=== PATIENT | male | born 1970 | race Caucasian/White ===

== ENCOUNTER 2020-01-19 16:25 | Outpatient (REF) | payer OTHER, SELFPAY | END 2020-01-19 16:26 | disposition home or self-care (01) | LOC: HO.LAB 16:25 | PROVIDERS: PCP Nurse Practitioner Family; Visit Provider Internal Medicine | DX: Z20.828 Contact with and (suspected) exposure to other viral communicable diseases (principal) | CPT/HCPCS: 87635 ==

== ENCOUNTER 2020-01-22 09:54 | Day surgery (SDC) | payer OTHER, SELFPAY ==
[2020-01-12 15:34] VITALS: BMI 31.5
--- NOTE | 2020-01-17 15:08 | P.CONAN_ITS ---
Documented by User: Giulia Heard 01/17/20 15:09 HPI - Anesthesia Eval Consult details Narrative: 49yo M for Colonoscopy: screening [facility] Past Medical History Medical History Elevated cholesterol Fatty liver GERD (gastroesophageal reflux disease) Hematoma Renal calculi Thyroid disease Surgical History Surgical History (Updated 01/22/20 @ 10:36 by Isi Barton) History of esophagogastroduodenoscopy (EGD) History of evacuation of hematoma Social History Social History Smoking Status: Never smoker Use of substances other than those prescribed or required for medical reasons: No Advance Directives Information Provided: No Recently lost weight without trying: No Meds Allergies Allergy/AdvReac Type Severity Reaction Status Date / Time No Known Allergies Allergy Verified 01/12/20 15:38 [No Known Allergies*] Home Medications Medication Instructions Recorded Confirmed Type ergocalciferol (vitamin D2) 1,250 mcg PO QWEEK 01/12/20 01/12/20 History [Vitamin D2] levothyroxine 100 mcg PO DAILY 01/12/20 01/12/20 History omeprazole 20 mg PO DAILY 01/12/20 01/12/20 History Exam Exam Date and Time: January 17, 2020 1508 Height,Weight and Vital Signs: Height 6 ft Weight 105.5 kg Assessment and Plan Assessment Anesthesia Assessment: Chart Reviewed Documented by User: Isi Barton 01/22/20 10:40 [facility] Past Medical History Medical History Elevated cholesterol Fatty liver GERD (gastroesophageal reflux disease) Hematoma Renal calculi Thyroid disease Family History Family history of problems with anesthesia: No Surgical History Surgical History (Updated 01/22/20 @ 10:36 by Isi Barton) History of esophagogastroduodenoscopy (EGD) History of evacuation of hematoma History of Problems with Anesthesia: No Social History Social History Smoking Status: Never smoker Use of substances other than those prescribed or required for medical reasons: No Advance Directives Information Provided: No Recently lost weight without trying: No Meds Allergies Allergy/AdvReac Type Severity Reaction Status Date / Time No Known Allergies Allergy Verified 01/12/20 15:38 [No Known Allergies*] Home Medications Medication Instructions Recorded Confirmed Type ergocalciferol (vitamin D2) 1,250 mcg PO QWEEK 01/12/20 01/12/20 History [Vitamin D2] levothyroxine 100 mcg PO DAILY 01/12/20 01/12/20 History omeprazole 20 mg PO DAILY 01/12/20 01/12/20 History Exam Height,Weight and Vital Signs: Vital Signs Temp Pulse Resp BP Pulse Ox 01/22/20 10:14 98 F 80 16 124/84 98 Airway Mallampati Class: II TM Dist: >3cm Neck ROM: Full Loose/Missing/Broken Teeth: No (Crowns intact) Heart: RRR Lungs: CTAB Assessment and Plan Assessment Anesthesia Assessment: Anesthesia Plan Discussed and Chart Reviewed Final Anesthetic Review NPO: Yes (Except prep and water with meds) ASA Class: II Final Preanesthetic Review: No Changes in Pt Med Stat, Meds/Allgs Chart Reviewed, Consent Obtained/Reviewed and Anes Risks/Benef Reviewed Patient Risk: Low Procedure Risk: Low Anesthetic Plan Anesthetic Plan: MAC: Disposition: Standard PACU
[2020-01-22 10:14] VITALS: BP 124/84; PULSE 80; RESP 16; TEMP 36.6; O2SAT 98
[2020-01-22] MEDS: Lactated Ringers 1,000 ML 100 ML IVCONT (10:28)
--- NOTE | 2020-01-22 11:04 | MHC.SHP ---
Pre-Procedural Eval Section B Chief Complaint: screening Details of Present Illness: Colon cancer screening Relevant Family History (Specify if Yes): No Relevant Social History: Tobacco Use (none) Present Medications: see Short Stay Collaborative assessment Medical History: Significant History ( Psoriasis. vitamin D deficiency. Mixed hyperlipidemia. Acquired hypothyroidism. GERD without esophagitis. Other obesity due to excess calories. BMI 31.0-31.9 in adult. RALPH. Elevated bilirubin. Substernal chest pain. Left flank pa) History of Previous Operations: Relevant previous surgery/procedure and date(s) (hematoma removal left orbit [id number] ) Allergies: Allergies Allergy/AdvReac Type Severity Reaction Status Date / Time No Known Allergies Allergy Verified 01/12/20 15:38 [No Known Allergies*] Review of Systems Sugical H&P ROS: Negative: Constitution, Cardiovascular, Respiratory and Gastrointestinal Exam Surgical H&P Exam: Normal: Heart, Normal: Lungs, Normal: Extremities and Normal: Abdomen Plan Diagnosis/Plan: Unchanged Patient has been examined and remains a candidate for the planned procedure
--- NOTE | 2020-01-22 11:15 | PM.OP ---
Brief Operative Note Date of procedure: 01/23/20 Pre-op diagnosis: colon cancer screening Post-op diagnosis: other ( colon polyp, diverticulosis, hemorrhoids) Procedure: COLONOSCOPY TILL CECUM WITH BIOPSIES Consent: Indications for the procedure and potential complications of bleeding, perforation, reaction to medications and missed diagnosis were discussed with the patient and informed consent was obtained. Instrument: Olympus PCF H 190 L variable stiffness pediatric colonoscope Monitoring: Vital signs and clinical assessment, intermittent blood pressure monitoring, continuous EKG monitoring, Pulse oximetry and Carbon Dioxide monitoring were done throughout the procedure. Colon withdrawl time was 11 minutes. Procedure: The patient was placed in the left lateral decubitis position and pre-procedure medications were administered. After a digital rectal examination of the ano-rectum, the video colonoscope was inserted into the rectum and advanced through the colon to the cecum. The colonoscope was slowly withdrawn in a retrograde panoramic fashion and the colon mucosa was carefully examined including a retroflexed view of the rectum. Findings and interventions are described below. Procedure Difficulty: Without difficulty Findings: Terminal Ileum: Not evaluated Cecum: Normal Ascending Colon: Normal Transverse Colon: A 6-7 mm sessile polyp at hepatic flexure, removed with a cold biopsy. Descending Colon: Normal Sigmoid Colon: Moderate diverticulosis Rectum: Normal Ano-rectum: Moderate noninflamed internal hemorrhoids Colon preparation: Excellent Impression and Post Procedure Diagnosis: Colonoscopy Findings: One small polyp removed Moderate diverticulosis seen in the sigmoid colon Moderate hemorrhoids on retroflexed exam. Plan: Await pathology results Patient has an appointment on 03/25/20 in the GI [facility] with Tawana Ray M.D.-. Repeat Colonoscopy interval based on path results - in 5 years if polyps are adenomatous and 10 years if polyps are hyperplastic. Above findings were reviewed with the patient and colon polyps and diverticulosis handouts were given in the discharge area Surgeon: Tawana Ray MD Anesthesia: MAC (Mani Nam CRNA) Porcelain Finish Sprayer: Sol Malagon Estimated blood loss (mL): 0 Pathology: other (A. Polyp hepatic flexure x 1) Condition: stable Disposition: PACU
[2020-01-22 11:41] VITALS: BP 93/64; PULSE 96; RESP 18; TEMP 36.8; O2SAT 95
[2020-01-22 11:57] VITALS: BP 103/67; PULSE 64; RESP 16; O2SAT 98
[2020-01-22 12:13] VITALS: BP 120/85; PULSE 65; RESP 13; TEMP 36.8; O2SAT 99
--- NOTE | 2020-01-22 13:00 | HO.POSTANES ---
Post Anesthesia Evaluation Post Anesthesia Evaluation Vital Signs: Vital Signs Temp Pulse Resp BP Pulse Ox 01/22/20 12:13 98.3 F 65 13 120/85 99 01/22/20 11:57 64 16 103/67 98 01/22/20 11:41 98.3 F 96 18 93/64 95 01/22/20 10:14 98 F 80 16 124/84 98 Anesthesia: Monitored Mental Status: Awake Pain Control: Satisfactory Nausea/Vomiting: None Hydration: Adequate Anesthesia-Related Issues: No Anes. Related Issues
== END 2020-01-22 12:59 | disposition home or self-care (01) ==
PROVIDERS: PCP Nurse Practitioner Family; Visit Provider Internal Medicine Gastroenterology
PROC: 0DJD8ZZ Inspection of Lower Intestinal Tract, Via Natural or Artificial Opening Endoscopic (ICD-10-PCS; CPT 45378; principal; 2020-01-22 12:50)
DX: Z12.11 Encounter for screening for malignant neoplasm of colon (principal); D12.3 Benign neoplasm of transverse colon; K57.30 Diverticulosis of large intestine without perforation or abscess without bleeding; K64.8 Other hemorrhoids; K21.9 Gastro-esophageal reflux disease without esophagitis; E78.5 Hyperlipidemia, unspecified; E55.9 Vitamin D deficiency, unspecified; L40.9 Psoriasis, unspecified; E66.9 Obesity, unspecified; Z68.31 Body mass index [BMI] 31.0-31.9, adult; Z79.899 Other long term (current) drug therapy
CPT/HCPCS: 45380; 88305

== ENCOUNTER → 2020-03-25 14:53 | Outpatient (BNVA) | payer OTHER, SELFPAY | PROVIDERS: PCP Nurse Practitioner Family; Visit Provider Internal Medicine Gastroenterology | DX: Z76.89 Persons encountering health services in other specified circumstances (principal) ==

== ENCOUNTER → 2020-09-19 10:51 | Outpatient (BNVA) | payer OTHER, SELFPAY | PROVIDERS: PCP Nurse Practitioner Family; Referring Provider Nurse Practitioner Family; Visit Provider Internal Medicine Gastroenterology ==

== ENCOUNTER 2021-03-22 10:28 | Outpatient (REF) | payer OTHER, SELFPAY ==
[2021-03-22 11:17] LABS: Appearance Urine CLEAR; Color Urine YELLOW; Glucose Urine UA NEG (NEG); Leukocyte Esterase Urine NEG (NEG); Nitrite Urine NEG (NEG); Specific Gravity - Urine 1.025 (1.005-1.025); Urine Blood NEG (NEG); Urine Ketones NEG (NEG); Urine Protein NEG (NEG-TRACE)
[2021-03-22 11:39] LABS: Alanine Aminotransferase 45 U/L (0-40); Albumin Level 4.5 g/dL (3.5-5.0); Alkaline Phosphatase 62 U/L (39-117); Anion Gap 13 (12-20); Aspartate Amino Transferase 28 U/L (5-37); Bilirubin Total 1.5 mg/dL (0.0-1.0); Blood Urea Nitrogen 19 mg/dL (9-16); Calcium 9.6 mg/dL (8.4-10.2); Carbon Dioxide 25 mmol/L (22-29); Chloride 107 mmol/L (96-108); Cholesterol 237 mg/dL; Estimated Glomerular Filt Rate 51; Glucose Fasting 92 mg/dL (60-99); HDL Cholesterol 56 mg/dL; LDL Cholesterol Calculated 152 mg/dl; Potassium 4.2 mmol/L (3.3-5.1); Sodium 141 mmol/L (135-145); Total Protein 7.4 g/dL (6.5-8.0); Triglycerides 149 mg/dL
[2021-03-22 11:47] LABS: Prostate Specific Antigen Scr 0.44 ng/mL (<0.05-4.0)
== END 2021-03-22 10:29 | disposition home or self-care (01) ==
LOC: HO.HMGCLDS 10:28
PROVIDERS: Visit Provider Nurse Practitioner Family
DX: Z00.00 Encounter for general adult medical examination without abnormal findings (principal); R07.89 Other chest pain; Z12.5 Encounter for screening for malignant neoplasm of prostate
CPT/HCPCS: 36415; 80053; 80061; 81003; 84153; 84443

== ENCOUNTER → 2021-03-27 10:55 | Outpatient (BNVA) | payer OTHER, SELFPAY | PROVIDERS: PCP Nurse Practitioner Family; Referring Provider Nurse Practitioner Family; Visit Provider Internal Medicine Gastroenterology | DX: K21.9 Gastro-esophageal reflux disease without esophagitis (principal); K76.0 Fatty (change of) liver, not elsewhere classified ==

== ENCOUNTER → 2021-04-21 08:54 | Outpatient (REF) | payer OTHER, SELFPAY ==
--- NOTE | 2021-04-21 09:00 | CA_ITS ---
Acquisition Time: 2021-04-21 09:10:04 Total Exercise Time: 00:07:30 Test Indications: CHEST PAIN Medications: LEVOTHROXINE Protocol: SIVAKUMAR Max HR: 157 BPM 91% of Pred: 171 BPM Max BP: 148/088 mmHG Max Work Load: 9.2 METS Exercise stress test with exercise 7 min 30 sec of Sivakumar protocol, with mild sob, no chest discomfort, without arrythmia, with normotensive response to exercise, without EKG changes meeting criteria for ischemia. Test reviewed with Dr Copeland. Referred By: Milton Bass Overread By: JESSICA MCKENZIE
== END ==
LOC: HO.CARD 08:54
PROVIDERS: PCP Nurse Practitioner Family; Visit Provider Physician Assistant
DX: R07.89 Other chest pain (principal); R06.02 Shortness of breath; Z82.49 Family history of ischemic heart disease and other diseases of the circulatory system
CPT/HCPCS: 93017

== ENCOUNTER 2021-05-07 08:27 | Outpatient (REF) | payer OTHER, SELFPAY ==
--- NOTE | ~2021-05-07 | US_ITS ---
EXAMINATION: US ABDOMEN COMPLETE CLINICAL INFORMATION: Unspecified abdominal pain. Follow up large gallstone. COMPARISON: Ultrasound abdomen complete 11/21/2018. CT abdomen and pelvis 04/05/2010. TECHNIQUE: Real-time imaging of the abdominal viscera. FINDINGS: PANCREAS: Normal. ABDOMINAL AORTA: The proximal, mid, and distal segments are normal in caliber. INFERIOR VENA CAVA: Visualized portions are normal. LIVER: The liver is normal in size. The liver contour is normal. There is increased liver echogenicity. No focal hepatic lesion. There is no intrahepatic biliary duct dilatation seen. GALLBLADDER: The gallbladder is physiologically distended. Multiple mobile gallstones are present. No evidence of gallbladder wall thickening or pericholecystic fluid. The wall thickness is 0.26 cm. COMMON BILE DUCT: Normal in caliber measuring 0.6 cm in diameter. RIGHT KIDNEY: Normal. No hydronephrosis. No renal calculi or focal parenchymal lesions. The kidney measures 10.8 cm in maximum dimension. LEFT KIDNEY: Normal. No hydronephrosis. No renal calculi or focal parenchymal lesions. The kidney measures 9.7 cm in maximum dimension. SPLEEN: Normal. The spleen measures 11.6 cm in maximum dimension. FREE FLUID: None. US/US abdomen complete IMPRESSION: Hepatic steatosis without focal lesion. Cholelithiasis. The above findings of hepatic steatosis and gallstones are unchanged to previous ultrasound exam 11/21/2018.
== END 2021-05-07 08:28 | disposition home or self-care (01) ==
LOC: HO.HMGCX 08:27
PROVIDERS: Visit Provider Physician Assistant
DX: R10.9 Unspecified abdominal pain (principal)
CPT/HCPCS: 76700

== ENCOUNTER → 2021-08-28 08:44 | Outpatient (BNVA) | payer OTHER, SELFPAY | PROVIDERS: PCP Nurse Practitioner Family; Referring Provider Nurse Practitioner Family; Visit Provider Internal Medicine Gastroenterology | DX: R10.9 Unspecified abdominal pain (principal) ==

== ENCOUNTER 2021-08-28 10:14 | Outpatient (REF) | payer OTHER, SELFPAY ==
[2021-08-28 11:12] LABS: MANUAL DIFF FLAG NO
[2021-08-28 11:27] LABS: Basophils Percent Auto 0.7 % (0-2); Eosinophils Absolute Auto 0.1 X10*3/uL (0.0-0.4); Eosinophils Percent Auto 1.1 % (0-4); Hematocrit 46.7 % (42.0-52.0); Hemoglobin 15.7 g/dl (14.0-18.0); Imm Gran Abs Auto 0.02 X10*3/uL (0.00-0.03); Imm Gran Pct Auto 0.4 % (0.0-0.4); Lymphocytes Absolute Auto 1.8 X10*3/uL (1.2-4.9); Lymphocytes Percent Auto 31.5 % (20-40); Mean Corpuscular HGB Conc 33.6 g/dl (31.0-36.0); Mean Corpuscular Hemoglobin 30.7 pg (27.0-33.0); Mean Corpuscular Volume 91.2 fL (80.0-98.0); Mean Platelet Volume 10.2 fL (9.4-12.4); Monocytes Absolute Auto 0.6 X10*3/uL (0.1-1.2); Monocytes Percent Auto 10.2 % (2-11); Neutrophils Absolute Auto 3.1 x10*3/uL (2.0-8.3); Neutrophils Percent Auto 56.1 % (45-73); Platelet Count 253 X10*3/uL (160-400); Red Blood Count 5.12 X10*6/uL (4.60-5.80); Red Cell Distribution Width 12.6 % (11.0-16.0); White Blood Count 5.6 X10*3/uL (4.8-10.8)
[2021-08-28 11:50] LABS: Alanine Aminotransferase 40 U/L (0-40); Albumin Level 4.4 g/dL (3.5-5.0); Alkaline Phosphatase 67 U/L (39-117); Anion Gap 11 (12-20); Aspartate Amino Transferase 22 U/L (5-37); Bilirubin Total 1.3 mg/dL (0.0-1.0); Blood Urea Nitrogen 18 mg/dL (9-16); Calcium 9.6 mg/dL (8.4-10.2); Carbon Dioxide 28 mmol/L (22-29); Chloride 107 mmol/L (96-108); Estimated Glomerular Filt Rate 51; Glucose Random 86 mg/dL (60-115); Sodium 141 mmol/L (135-145); Total Protein 7.1 g/dL (6.5-8.0)
[2021-08-28 12:15] LABS: Vitamin D 25-OH Total 83.7 ng/mL (>30)
[2021-08-28 12:54] LABS: Folate 8.8 ng/mL (> or = 4.0); Vitamin B12 329 pg/mL (200-900)
== END 2021-08-28 10:15 | disposition home or self-care (01) ==
LOC: HO.HMGCLDS 10:14
PROVIDERS: PCP Nurse Practitioner Family; Visit Provider Internal Medicine Gastroenterology
DX: K21.9 Gastro-esophageal reflux disease without esophagitis (principal)
CPT/HCPCS: 36415; 80053; 82306; 82607; 82746; 85025

== ENCOUNTER 2021-09-12 08:52 | Outpatient (REF) | payer OTHER, SELFPAY ==
--- NOTE | ~2021-09-12 | US_ITS ---
EXAMINATION: US ABDOMEN LIMITED CLINICAL INFORMATION: Calculus of gallbladder without cholecystitis without obstruction. COMPARISON: Ultrasound abdomen complete 05/07/2021 and 11/21/2018. TECHNIQUE: Real-time imaging of the right upper quadrant abdominal viscera. FINDINGS: PANCREAS: Normal. LIVER: The liver is normal in size. The liver contour is normal. Liver echotexture is increased. No focal hepatic lesion. There is no intrahepatic biliary duct dilatation seen. GALLBLADDER: The gallbladder is physiologically distended. Multiple mobile gallstones are present. No evidence of gallbladder wall thickening or pericholecystic fluid. COMMON BILE DUCT: Normal in caliber measuring 0.6 cm in diameter. RIGHT KIDNEY: Normal. No hydronephrosis. No renal calculi or focal parenchymal lesions. The kidney measures 10.1 cm in maximum dimension. FREE FLUID: None. US/US abdomen limited IMPRESSION: Gallstones. Echogenic liver probably representing fatty infiltration
== END 2021-09-12 08:53 | disposition home or self-care (01) ==
LOC: HO.HMGCX 08:52
PROVIDERS: PCP Nurse Practitioner Family; Visit Provider Internal Medicine Gastroenterology
DX: K80.20 Calculus of gallbladder without cholecystitis without obstruction (principal)
CPT/HCPCS: 76705

== ENCOUNTER 2022-09-07 10:03 | Outpatient (REF) | payer OTHER, SELFPAY ==
[2022-09-07 11:15] LABS: MANUAL DIFF FLAG NO
[2022-09-07 11:33] LABS: Basophils Percent Auto 0.5 % (0-2); Eosinophils Absolute Auto 0.1 X10*3/uL (0.0-0.4); Eosinophils Percent Auto 1.2 % (0-4); Hematocrit 48.5 % (42.0-52.0); Hemoglobin 16.2 g/dl (14.0-18.0); Imm Gran Abs Auto 0.03 X10*3/uL (0.00-0.03); Imm Gran Pct Auto 0.5 % (0.0-0.4); Lymphocytes Absolute Auto 1.9 X10*3/uL (1.2-4.9); Lymphocytes Percent Auto 28.3 % (20-40); Mean Corpuscular HGB Conc 33.4 g/dl (31.0-36.0); Mean Corpuscular Hemoglobin 30.2 pg (27.0-33.0); Mean Corpuscular Volume 90.3 fL (80.0-98.0); Mean Platelet Volume 9.9 fL (9.4-12.4); Monocytes Absolute Auto 0.5 X10*3/uL (0.1-1.2); Neutrophils Percent Auto 61.5 % (45-73); Platelet Count 270 X10*3/uL (160-400); Red Blood Count 5.37 X10*6/uL (4.60-5.80); Red Cell Distribution Width 12.9 % (11.0-16.0); White Blood Count 6.5 X10*3/uL (4.8-10.8)
[2022-09-07 11:38] LABS: Appearance Urine Clear; Color Urine Yellow; Glucose Urine UA Negative (Negative); Leukocyte Esterase Urine Negative (Negative); Nitrite Urine Negative (Negative); Specific Gravity - Urine 1.025 (1.005-1.025); Urine Blood Negative (Negative); Urine Ketones Negative (Negative); Urine Protein Negative (Neg-Trace)
[2022-09-07 12:06] LABS: Alanine Aminotransferase 48 U/L (0-40); Albumin Level 4.6 g/dL (3.5-5.0); Alkaline Phosphatase 79 U/L (39-117); Anion Gap 14 (12-20); Aspartate Amino Transferase 27 U/L (5-37); Bilirubin Total 1.7 mg/dL (0.0-1.0); Blood Urea Nitrogen 17 mg/dL (9-16); Calcium 9.8 mg/dL (8.4-10.2); Carbon Dioxide 26 mmol/L (22-29); Chloride 108 mmol/L (96-108); Cholesterol 233 mg/dL; Estimated Glomerular Filt Rate 52; Glucose Fasting 96 mg/dL (60-99); HDL Cholesterol 55 mg/dL; LDL Cholesterol Calculated 149 mg/dl; Potassium 4.8 mmol/L (3.3-5.1); Sodium 143 mmol/L (135-145); Total Protein 7.6 g/dL (6.5-8.0); Triglycerides 148 mg/dL
[2022-09-07 12:07] LABS: Vitamin D 25-OH Total 76.5 ng/mL (>30)
[2022-09-07 12:11] LABS: Prostate Specific Antigen Scr 0.47 ng/mL (<0.05-4.0); TSH reflex Free T4 1.07 uIU/mL (0.32-4.0)
== END 2022-09-07 10:04 | disposition home or self-care (01) ==
LOC: HO.HMGCLDS 10:03
PROVIDERS: Internal Medicine Gastroenterology; PCP Nurse Practitioner Family; Visit Provider Nurse Practitioner Family
DX: Z00.00 Encounter for general adult medical examination without abnormal findings (principal); Z12.5 Encounter for screening for malignant neoplasm of prostate; E55.9 Vitamin D deficiency, unspecified; E78.5 Hyperlipidemia, unspecified; K76.0 Fatty (change of) liver, not elsewhere classified
CPT/HCPCS: 36415; 80053; 80061; 81003; 82306; 84153; 84443; 85025

== ENCOUNTER 2022-09-22 09:53 | Outpatient (REF) | payer OTHER, SELFPAY ==
--- NOTE | ~2022-09-22 | US_ITS ---
EXAMINATION: US ABDOMEN LIMITED CLINICAL INFORMATION: Calculus of bile duct without cholangitis or cholecystitis without obstruction. COMPARISON: Ultrasound abdomen limited dated 09/12/2021. Ultrasound abdomen complete dated 05/07/2021. CT abdomen and pelvis without contrast dated 04/05/2010. TECHNIQUE: Real-time imaging of the right upper quadrant abdominal viscera. FINDINGS: PANCREAS: The visualized portions of the pancreas are unremarkable but a large portion of the gland is obscured by bowel gas. LIVER: The liver is normal in size. The liver contour is normal. There is diffuse increased liver parenchymal echogenicity, consistent with hepatic steatosis. There is focal fatty sparing around the gallbladder. There is no intrahepatic biliary duct dilatation seen. Some hepatic cysts are present with a 1 cm cyst in the left lobe of the liver and a 1.5 cm cyst in the right lobe. No solid hepatic masses. GALLBLADDER: The gallbladder is physiologically distended. There is a single large 3.5 x 2.4 x 2.9 cm nonmobile gallstone present. No evidence of gallbladder wall thickening or pericholecystic fluid. Garrett's sign is negative. COMMON BILE DUCT: Normal in caliber measuring 0.65 cm in diameter. RIGHT KIDNEY: Normal. No hydronephrosis. No renal calculi or focal parenchymal lesions. The kidney measures 10.1 cm in maximum dimension. FREE FLUID: None. US/US abdomen limited IMPRESSION: 1. Hepatic steatosis with focal fatty sparing around the gallbladder. 2. Cholelithiasis without evidence of cholecystitis.
--- NOTE | ~2022-09-22 | US_ITS ---
EXAMINATION: US THYROID CLINICAL INFORMATION: Nontoxic single thyroid nodule. COMPARISON: None available. TECHNIQUE: Linear transducer grayscale and color Doppler examination with attention to the region of the thyroid. FINDINGS: SIZE: Measurements of the thyroid lobes and nodules are given in sagittal, anteroposterior and transverse dimensions respectively. Right Thyroid Lobe: 4.6 x 1.0 x 1.5 cm, volume 3.6 mL. Parenchyma: The gland echotexture is heterogeneous. Thyroid vascularity is normal. Left Thyroid Lobe: 4.1 x 1.0 x 1.1 cm, volume 2.4 mL. Parenchyma: The gland echotexture is heterogeneous. Thyroid vascularity is normal. Isthmus: 0.3 cm in maximum AP dimension. No focal thyroid nodule is seen. NODES: No lymphadenopathy is seen in the tissue surrounding the thyroid gland. US/US thyroid IMPRESSION: No thyroid nodule seen. Small diffusely heterogeneous gland. ACR TI-RADS RECOMMENDATION REFERENCE: Ultrasound-guided fine-needle aspiration, followup ultrasound, no further follow up. * TR1 (0 point) and TR2 (2 points): No FNA or follow up. * TR3 (3 points): FNA if more than or equal to 2.5 cm in maximum dimension, followup ultrasound in 1, 3 and 5 years if 1.5 to 2.4 cm in maximum dimension. * TR4 (4-6 points): FNA if more than or equal to 1.5 cm in maximum dimension, followup ultrasound in 1, 2, 3 and 5 years if 1 to 1.4 cm in maximum dimension. * TR5 (more than or equal to 7 points): FNA if more than or equal to 1 cm in maximum dimension, followup ultrasound every year for 5 years if 0.5 to 0.9 cm in maximum dimension. * TR3, TR4 or TR5 nodules that are below the size threshold for followup receive no follow up.
== END 2022-09-22 09:54 | disposition home or self-care (01) ==
LOC: HO.HMGCX 09:53
PROVIDERS: PCP Nurse Practitioner Family; Visit Provider Nurse Practitioner Family
DX: E04.1 Nontoxic single thyroid nodule (principal); K80.50 Calculus of bile duct without cholangitis or cholecystitis without obstruction
CPT/HCPCS: 76536; 76705

== ENCOUNTER → 2022-10-09 07:23 | Outpatient (BNVA) | payer OTHER, SELFPAY | PROVIDERS: PCP Nurse Practitioner Family; Visit Provider Internal Medicine Gastroenterology ==

== ENCOUNTER 2022-11-10 15:27 | Outpatient (AMB) | payer OTHER, SELFPAY ==
--- NOTE | 2022-11-10 15:28 | A.OFFVIS_ITS ---
Intake Vital Signs 11/10/22 15:42 Height 6 ft Weight 247 lb BMI 33.5 BP 112/82 Blood Pressure Location Lt brachial Position Sitting Pulse 64 Intake Visit Reasons: Large Gallstone on US - 2019 [facility] Note scanned Intake Note: Patient is seen in office for evaluation and treatment of gallstones. Patient c/o: onset for years, been monitoring for years, RUQ pain around last week of August, one episode of nausea, does not radiate to the back, denies vomit, diarrhea, constipation, currently has no symptoms Armature Bander Required: No Accompanied by: Self / Same As Patient Allergies No Known Allergies [No Known Allergies*] Allergy (Verified 11/10/22 15:44) Medication List - Last Reconciled 11/12/22 by Srikanth Matos MD cholecalciferol (vitamin D3) 125 mcg PO DAILY 90 days levothyroxine 100 mcg PO DAILY pantoprazole 40 mg PO BID 90 days rosuvastatin (Crestor) 5 mg PO DAILY HPI HPI Comments History of Present Illness Details 51 year old male patient presenting with a known large gallstone of the gallbladder which was previously evaluated several years ago and the decision made to hold off on surgery. Since his last visit, he reports several episodes of right upper quadrant abdominal pain which lasts 15-30 minutes and seems to be associated with po intake. He denies nausea, vomiting, fever or chills. He is now considering laparoscopic cholecystectomy. [facility] Medical History Diverticulosis Elevated cholesterol Fatty liver GERD (gastroesophageal reflux disease) Hematoma History of PFTs Renal calculi Thyroid disease Surgical History History of colonoscopy History of esophagogastroduodenoscopy (EGD) History of evacuation of hematoma Family History Father CAD (coronary artery disease) Mother Hx of colon cancer, stage IV Social History Housing: House Alcohol intake: current Alcohol intake frequency: holidays/special occasions only Patient Tobacco Use Status: Never used Tobacco e-Cigarette/Vaping Use: Never Used Second Hand Smoke Exposure: No service: No Current occupational status: employed 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 Current occupational exposures/hazards: Yes Cognitive needs: No Hearing needs: No Vision needs: No Review of Systems Const All systems reviewed & are unremarkable except as noted in HPI and below GI Reports abdominal pain Physical Exam Vital Signs: Last Vital Signs Pulse 64 11/10/22 15:42 BP 112/82 11/10/22 15:42 BMI result Body Mass Index 33.5 Const General: cooperative and no acute distress Nutritional Appearance: well nourished Orientation/consciousness: patient oriented x3 Limitations: no limitations HEENT Head: Yes normocephalic and Yes atraumatic Ears: hearing grossly normal bilaterally Resp Effort & Inspection: normal respiratory effort, no audible wheezes, no cough and no respiratory distress Cardio Jugular venous distension: no JVD GI Inspection: Yes normal to inspection Palpation (GI): Soft to palpation, nontender, no guarding, not rigid and no masses Skin Other: Warm, dry, no rash Neuro General: patient oriented x3 Extrem General: Yes no clubbing, cyanosis or edema Assessment & Plan Assessment & Plan (1) Recurrent biliary colic: Code(s): K80.50 - Calculus of bile duct without cholangitis or cholecystitis without obstruction Plan: 51 year old male patient with increased abdominal pain in the right upper quadrant and a known history of gallstones. Symptoms are consistent with biliary colic. We discussed laparoscopic cholecystectomy or possible open cholecystectomy and after a discussion of the procedure, alternatives and risks, consents to the surgery. Coding Level of Care Code New Pt Level 4 (46617) Diagnoses Recurrent biliary colic K80.50
[2022-11-10 15:42] VITALS: BP 112/82; PULSE 64; BMI 33.5
== END 2022-11-10 16:03 | disposition home or self-care (01) ==
PROVIDERS: PCP Nurse Practitioner Family; Referring Provider Internal Medicine Gastroenterology; Visit Provider Surgery
DX: K80.50 Calculus of bile duct without cholangitis or cholecystitis without obstruction (principal)
CPT/HCPCS: 99204

== ENCOUNTER → 2022-11-10 15:27 | Outpatient (BNVA) | payer OTHER, SELFPAY | PROVIDERS: PCP Nurse Practitioner Family; Referring Provider Internal Medicine Gastroenterology; Visit Provider Surgery ==

== ENCOUNTER 2023-01-04 06:07 | Day surgery (SDC) | payer OTHER, SELFPAY ==
--- NOTE | 2023-01-01 14:48 | P.CONAN_ITS ---
Documented by User: Giulia Heard NP 01/01/23 14:50 HPI - Anesthesia Eval Consult details Narrative: 52yo M for Cholecystectomy Laparoscopic, possible open PMFSH Active Problems Active Problems: All Active Problems (Updated 11/12/22 @ 17:27 by Srikanth Matos MD) Recurrent biliary colic (Acute) Gall bladder pain (Acute) Thyroid nodule (Acute) Family history of heart attack (Acute) Acute pharyngitis (Acute) Upper respiratory tract infection (Acute) Abdominal pain (Acute) Elevated serum creatinine (Acute) Atypical chest pain (Acute) Screening for prostate cancer (Acute) Physical exam (Acute) NAFL (nonalcoholic fatty liver) (Acute) Asymptomatic gallstones (Acute) History of colon polyps (Acute) Obesity (BMI 30.0-34.9) (Acute) GERD without esophagitis (Acute) Hypothyroidism (Acute) Hyperlipidemia (Acute) Vitamin D deficiency (Acute) Psoriasis (Acute) Diverticulosis (Acute) Past Medical History Medical History Diverticulosis Elevated cholesterol Fatty liver GERD (gastroesophageal reflux disease) Hematoma History of PFTs Renal calculi Thyroid disease Family History Family History Father CAD (coronary artery disease) Mother Hx of colon cancer, stage IV Family history of problems with anesthesia: No Surgical History Surgical History History of colonoscopy History of esophagogastroduodenoscopy (EGD) History of evacuation of hematoma History of Problems with Anesthesia: No Social History Social History Housing: House Alcohol intake: current Alcohol intake frequency: holidays/special occasions only Patient Tobacco Use Status: Never used Tobacco e-Cigarette/Vaping Use: Never Used Second Hand Smoke Exposure: No Have you been hit, kicked, punched, or otherwise hurt by someone within the past year? 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 Current occupational exposures/hazards: Yes Cognitive needs: No Hearing needs: No Vision needs: No Meds Allergies Allergy/AdvReac Type Severity Reaction Status Date / Time No Known Allergies Allergy Verified 11/10/22 15:44 [No Known Allergies*] Exam Exam Date and Time: January 01, 2023 1448 Pertinent Lab Results Pertinent Lab Results: Laboratory Tests 09/07/22 10:10 WBC 6.5 Hgb 16.2 Hct 48.5 Plt Count 270 Sodium 143 Potassium 4.8 Chloride 108 Carbon Dioxide 26 BUN 17 H Creatinine 1.45 H Narrative Narrative: Stress 2021 Protocol: SAQIB Max HR: 157 BPM 91% of Pred: 171 BPM Max BP: 148/088 mmHG Max Work Load: 9.2 METS Exercise stress test with exercise 7 min 30 sec of Saqib protocol, with mild sob, no chest discomfort, without arrythmia, with normotensive response to exercise, without EKG changes meeting criteria for ischemia. Test reviewed with Dr Copeland. Assessment and Plan Assessment Anesthesia Assessment: Chart Reviewed Final Anesthetic Review Family History of Problems with Anesthesia: No History of Problems with Anesthesia: No Documented by User: Suki Eid MD 01/04/23 08:02 [facility] Past Medical History Medical History Diverticulosis Elevated cholesterol Fatty liver GERD (gastroesophageal reflux disease) Hematoma History of PFTs Renal calculi Thyroid disease Family History Family History Father CAD (coronary artery disease) Mother Hx of colon cancer, stage IV Surgical History Surgical History History of colonoscopy History of esophagogastroduodenoscopy (EGD) History of evacuation of hematoma Social History Social History Housing: House Alcohol intake: current Alcohol intake frequency: holidays/special occasions only Patient Tobacco Use Status: Never used Tobacco e-Cigarette/Vaping Use: Never Used Second Hand Smoke Exposure: No Have you been hit, kicked, punched, or otherwise hurt by someone within the past year? 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 Current occupational exposures/hazards: Yes Cognitive needs: No Hearing needs: No Vision needs: No Meds Allergies Allergy/AdvReac Type Severity Reaction Status Date / Time No Known Allergies Allergy Verified 11/10/22 15:44 [No Known Allergies*] Exam Airway Mallampati Class: III (receding chin) TM Dist: <=3cm Neck ROM: Full Loose/Missing/Broken Teeth: No Heart: RRR Lungs: CTA Assessment and Plan Assessment Anesthesia Assessment: Anesthesia Plan Discussed Final Anesthetic Review NPO: Yes ASA Class: II Final Preanesthetic Review: Meds/Allgs Chart Reviewed, Consent Obtained/Reviewed and Anes Risks/Benef Reviewed Patient Risk: Low Procedure Risk: Intermediate Anesthetic Plan Anesthetic Plan: GA Disposition: Standard PACU
[2023-01-04] VITALS (7 sets, daily range): BP systolic 128–142; BP diastolic 83–97; PULSE 63–74; RESP 17–18; TEMP 36.1–36.5; O2SAT 93–99; BMI 33.9
[2023-01-04] MEDS: Lactated Ringers 1,000 ML 100 ML IVCONT (07:11)
--- NOTE | 2023-01-04 07:19 | MHC.SHP ---
Pre-Procedural Eval Section A Date of Service: 01/04/23 The patient is an INPATIENT: No Changes since office visit: Yes Patient answered all questions; No Cold of Flu in the past 2 weeks, No New Medical Problems and No Changes in Medication The History & Physical has been completed within 30 days and I have reviewed it.: No Section B Chief Complaint: Calculus of bile duct without cholangitis or regis Details of Present Illness: No new complaints since previous evaluation Relevant Family History (Specify if Yes): No Relevant Social History: None Present Medications: see Short Stay Collaborative assessment Medical History: No relevant PMH History of Previous Operations: No relevant previous surgery Allergies: Allergies Allergy/AdvReac Type Severity Reaction Status Date / Time No Known Allergies Allergy Verified 11/10/22 15:44 [No Known Allergies*] Review of Systems Sugical H&P ROS: Negative: Constitution, Cardiovascular, Respiratory, Neurological, Psychiatric, Hem-Onc, Allergic/Immunologic, Gastrointestinal, Genitourinary, Musculoskeletal, Integumentary, Endocrine and Eyes/Ears/Nose/Throat Exam Surgical H&P Exam: Normal: HEENT, Normal: Heart, Normal: Lungs, Normal: Extremities, Normal: Abdomen, Normal: Skin and Normal: Neurological Plan Diagnosis/Plan: Unchanged I have reviewed the history and physical and performed a pertinent physical examination on my patient. No changes have occurred unless specified. Time Spent With Patient Time: Total time managing care of this patient today ____ minutes.
--- NOTE | 2023-01-04 08:51 | W.PM.OPN ---
Operative Note Operative Note Date of Service: 01/04/23 Narrative: Preoperative diagnosis: biliary colic, cholelithiasis Postoperative diagnosis: Same Procedure: Laparoscopic cholecystectomy Surgeon: Srikanth Matos MD Pvc Monitor: ELIEZER Ramirez Anesthesia: General endotracheal Indications for procedure: 52-year-old male patient presenting with recurrent episodes of abdominal pain in the right upper quadrant found to have a large gallstone measuring approximately 3 cm diameter within the gallbladder. He presents today for laparoscopic cholecystectomy. Operative findings: Normal appearing gallbladder with large gallstone Specimen: gallbladder Estimated blood loss: 5 mL Complications: none Procedure details: Patient was brought to the OR and placed in a supine position. After administering general anesthesia the patient's abdomen was prepped with ChloraPrep and draped in a sterile fashion. Local anesthesia consisting of 0.5% Sensorcaine without epinephrine was infiltrated in a periumbilical region. A 5 mm incision was made above the umbilicus in a transverse fashion. The Veress needle was then inserted while elevating abdominal cavity with towel clips. After positive drop test the abdomen was insufflated to a pressure of 15 mm of mercury. The Veress needle was then removed and a 5 mm trocar inserted. The camera was inserted in the abdomen explored. A 12 mm trocar was then placed in the epigastrium. Two 5 mm trocars placed in the right upper quadrant by the clothing sales assistant. The patient was placed in reverse Trendelenburg positioning and rotated to the left. The gallbladder was grasped with the fundus and retracted cephalad by the clothing sales assistant. The infundibulum was then grasped and retracted away from the liver bed, also by the clothing sales assistant. The Dolphin dissected was then used by the surgeon to dissect the peritoneum off the infundibulum to reveal the junction with the cystic duct. Cystic artery was noted slightly medial and posterior to the cystic duct. After obtaining a critical view the cystic duct was doubly clipped and divided. The cystic artery was then doubly clipped and divided. The gallbladder was then dissected off the liver bed using electrocautery with an L hook. Hemostasis was assured all times using the electrocautery. When the gallbladder is completely dissected off the liver bed was placed in an Endo-Catch bag and brought out through the epigastric incision. The gallbladder was sent to pathology for further examination. The abdomen was then re-examined. The liver bed was irrigated and suctioned dry . A small piece of Surgicel was applied to the liver edge for hemostasis. No bleeding or bile leak could be identified. CO2 was then evacuated and all trocars removed. Fascia was closed at the epigastric incision using a [id number] 0 Polysorb suture. Skin was closed in all incisions using a subcuticular 4 0 Polysorb suture by both the surgeon and clothing sales assistant. Sterile dressings consisting of Steri-Strips, 2 x 2 gauze, and Tegaderm were then applied. The patient tolerated the procedure well. Sponge instrument and needle counts reported as correct. The patient was transferred to PACU in stable condition.
== END 2023-01-04 10:47 | disposition home or self-care (01) ==
PROVIDERS: PCP Nurse Practitioner Family; Visit Provider Surgery
PROC: 0FT44ZZ Resection of Gallbladder, Percutaneous Endoscopic Approach (ICD-10-PCS; CPT 47562; principal; 2023-01-04 07:30)
DX: K80.50 Calculus of bile duct without cholangitis or cholecystitis without obstruction (principal); K80.10 Calculus of gallbladder with chronic cholecystitis without obstruction; K76.0 Fatty (change of) liver, not elsewhere classified; K21.9 Gastro-esophageal reflux disease without esophagitis; K57.30 Diverticulosis of large intestine without perforation or abscess without bleeding; E78.00 Pure hypercholesterolemia, unspecified; Z79.899 Other long term (current) drug therapy
CPT/HCPCS: 47562; 88304; J0131; J1100; J1885; J2250; J2405; J3010

== ENCOUNTER → 2023-01-04 06:07 | Outpatient (BNV) | payer OTHER, SELFPAY | PROVIDERS: PCP Nurse Practitioner Family; Visit Provider Surgery | DX: K80.50 Calculus of bile duct without cholangitis or cholecystitis without obstruction (principal) | CPT/HCPCS: 47562 ==

== ENCOUNTER 2023-01-14 11:36 | Outpatient (AMB) | payer OTHER, SELFPAY ==
--- NOTE | 2023-01-14 11:45 | MHC.OFFVIS ---
Intake Vital Signs 01/14/23 11:51 Weight 240 lb BP 135/94 H Blood Pressure Location Rt brachial Position Sitting Pulse 54 Intake Visit Reasons: S/P lap regis Intake Note: This patient of presents for a post-op assessment status post laparoscopic cholecystectomy. Patient c/o; reports no changes or complaints at this time. Case Specialist Required: No Accompanied by: Self / Same As Patient Allergies No Known Allergies [No Known Allergies*] Allergy (Verified 01/14/23 11:52) HPI S/P lap regis HPI Details He had undergone for laparoscopic cholecystectomy for gallstones with Dr. Matos last 01/04/2023. He tolerated procedure well. He currently says that he feels well denies significant complaints. He has good oral intake. PFSH Medical History History of PFTs Diverticulosis Hematoma GERD (gastroesophageal reflux disease) Renal calculi Fatty liver Thyroid disease Elevated cholesterol Surgical History Hx laparoscopic cholecystectomy (01/04/23) History of colonoscopy History of evacuation of hematoma History of esophagogastroduodenoscopy (EGD) Family History Father CAD (coronary artery disease) Mother Hx of colon cancer, stage IV Social History Housing: House Alcohol intake: current Alcohol intake frequency: holidays/special occasions only Patient Tobacco Use Status: Never used Tobacco e-Cigarette/Vaping Use: Never Used Second Hand Smoke Exposure: No service: No Current occupational status: employed 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 Current occupational exposures/hazards: Yes Cognitive needs: No Hearing needs: No Vision needs: No Review of Systems Const Denies chills and Denies fever(s) Card Denies chest pain, Denies dyspnea and Denies dyspnea on exertion Resp Denies cough, Denies dyspnea and Denies dyspnea on exertion GI Denies hematochezia and Denies change in bowel habits Denies hematuria and Denies difficulty urinating Musc Denies back pain and Denies limited range of motion Neuro Denies focal weakness and Denies convulsions Psych Denies depression and Denies mood swings Physical Exam Vital Signs: Last Vital Signs Pulse 54 01/14/23 11:51 BP 135/94 H 01/14/23 11:51 Const General: comfortable and no acute distress Eyes Other: Nonicteric sclerae Resp Effort & Inspection: normal respiratory effort GI Other: All incisions are well healed Palpation (GI): Soft to palpation, not firm and no guarding Assessment & Plan Assessment & Plan (1) Recurrent biliary colic: Code(s): K80.50 - Calculus of bile duct without cholangitis or cholecystitis without obstruction Plan: Status post laparoscopic cholecystectomy. He is doing very well. All incisions are well healed. He has good oral intake. I advised him to avoid any lifting more than 20 lb for at least 2 more weeks. He can otherwise follow up on a p.r.n. basis. Coding Level of Care Code Global (70998) Diagnoses Recurrent biliary colic K80.50
[2023-01-14 11:51] VITALS: BP 135/94; PULSE 54
== END 2023-01-14 12:03 | disposition home or self-care (01) ==
PROVIDERS: PCP Nurse Practitioner Family; Visit Provider Surgery
DX: K80.50 Calculus of bile duct without cholangitis or cholecystitis without obstruction (principal)
CPT/HCPCS: 99024

== ENCOUNTER → 2023-01-14 11:36 | Outpatient (BNVA) | payer OTHER, SELFPAY | PROVIDERS: PCP Nurse Practitioner Family; Visit Provider Surgery ==

== ENCOUNTER 2023-03-10 07:56 | Outpatient (AMB) | payer OTHER, SELFPAY ==
--- NOTE | 2023-03-10 08:05 | A.OFFPC_ITS ---
Vital Signs 03/10/23 08:07 Height 6 ft Weight 238 lb BMI 32.3 BP 120/82 Blood Pressure Location Lt brachial Position Sitting Pulse 68 Pulse Source Pulse Oximeter Pulse Oximetry (%) 97 Oxygen Delivery Method Room Air Intake Visit Reasons: Annual PE Intake Note: Patient here for Physical Exam and would like to discuss pain in feet and numbness in left thigh that comes and goes that has been bothersome after his recent surgery. Allergies No Known Allergies [No Known Allergies*] Allergy (Verified 03/10/23 08:09) Medication List - Last Reconciled 03/10/23 by SAUL Macdonald cholecalciferol (vitamin D3) 125 mcg PO DAILY 90 days ibuprofen 600 mg PO Q8H PRN levothyroxine 100 mcg PO DAILY oxycodone 5 mg PO Q6H PRN pantoprazole 40 mg PO BID 90 days rosuvastatin (Crestor) 5 mg PO DAILY Tobacco use date assessed: 09/07/22 Dental Screening Dental Screen Date: 03/10/23 Did you have a dental visit in the last 12 months?: Yes Did you have a dental problem in the last 6 months where you did not have access to dental care?: No Was dental information given to patient?: Patient has dentist HPI Annual PE HPI Details Pt is here for a PE. Will order labs. Colon screen is up to date. PSA is up to date. Informed pt that he can obtain his shingles vaccine at his pharmacy. Pt has lost weight and reports doing well. denies any nocturia, weak stream, excessive dribbling after urination PFSH Medical History History of PFTs Diverticulosis Hematoma GERD (gastroesophageal reflux disease) Renal calculi Fatty liver Thyroid disease Elevated cholesterol Surgical History Hx laparoscopic cholecystectomy (01/04/23) History of colonoscopy History of evacuation of hematoma History of esophagogastroduodenoscopy (EGD) Family History Father CAD (coronary artery disease) Mother Hx of colon cancer, stage IV Social History Housing: House Alcohol intake: current Alcohol intake frequency: holidays/special occasions only Patient Tobacco Use Status: Never used Tobacco e-Cigarette/Vaping Use: Never Used Second Hand Smoke Exposure: No service: No Current occupational status: employed 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 How often do you have a drink containing alcohol?: Monthly or less 2. How many drinks containing alcohol do you have on a typical day when you are drinking?: 1 or 2 3. How often do you have six or more drinks on one occasion?: Less than monthly Total Score: 2 Score Reviewed/Action Taken: Yes JANESSA-7 AMB Questionnaire JANESSA-7 Date JANESSA - 7 assessed: 09/07/22 Feeling nervous, anxious, or on edge: 0 = Not at all Not being able to stop or control worryin = Not at all Worrying too much about different things: 0 = Not at all Trouble relaxin = Not at all Being so restless that it is hard to sit still: 0 = Not at all Becoming easily annoyed or irritable: 0 = Not at all Feeling afraid as if something awful might happen: 0 = Not at all Total JANESSA-7 score (0-4 normal; 5-9 mild; 10-14 moderate; 15-21 severe): 0 Source: Developed by Drs. Clint Kelley, Marielle Velazquez, Yoan Sampson and colleagues, with an educational jose e from [employer]. JANESSA-7 Assessment Billing JANESSA-7 Assessment Tool: JANESSA-7 Assessment 79460 Review of Systems Const Denies chills and Denies fever(s) Eyes Denies blurry vision ENT Denies vertigo, Denies dizziness and Denies sore throat Card Denies chest pain at rest, Denies chest pain with activity, Denies diaphoresis, Denies dyspnea and Denies dyspnea on exertion Resp Denies cough, Denies dyspnea, Denies dyspnea on exertion and Denies wheezing GI Denies abdominal pain, Denies melena, Denies hematochezia, Denies constipation, Denies diarrhea and Denies loose stools Denies hematuria Musc Denies numbness and Denies tingling Skin/Breast Denies lesions Neuro Denies vertigo, Denies dizziness, Denies numbness and Denies tingling Psych Denies anxiety, Denies depression, Denies homicidal ideation, Denies suicidal ideation and Denies other (substance abuse) Aller/Immun Denies wheezing Physical exam (Primary Care) Vital Signs: Last Vital Signs Pulse 68 03/10/23 08:07 BP 120/82 03/10/23 08:07 Pulse Ox 97 03/10/23 08:07 Oxygen Delivery Method Room Air 03/10/23 08:07 BMI result Body Mass Index 32.3 Tobacco/Smoking Status: Tobacco use Status Tobacco use date assessed 09/07/22 03/10/23 08:07 Patient Tobacco Use Status Never used Tobacco 03/10/23 08:07 e-Cigarette/Vaping Use Never Used 03/10/23 08:07 Thrive Assessment: Date of Thrive Assessment Date Thrive assessed 09/07/22 03/10/23 08:07 Const General: cooperative Nutritional Appearance: obese Orientation/consciousness: patient oriented x3 HENMT Head: Yes normal to inspection, Yes normocephalic and Yes atraumatic Ears: TM's normal bilaterally Eyes General: appearance normal, both eyes and all related structures Alignment and Position: alignment normal and position normal Neck Neck: Yes normal visual inspection and Yes no lymphadenopathy Thyroid: Thyroid normal Resp Effort & Inspection: normal respiratory effort Auscultation: clear to auscultation bilaterally Cardio Rate: regular rate Rhythm: regular rhythm Heart sounds: S1 normal heart sound present, S2 normal heart sound present and no murmurs GI Palpation (GI): Soft to palpation and nontender Auscultation: normal bowel sounds Male General Exam: Yes normal external exam Penis: normal penis Scrotum: scrotum normal, testes descended bilaterally and no inguinal hernias Testes: no testicular mass Skin Rashes: no rashes Neuro General: patient oriented x3, moves all extremities, no focal motor deficits and deep tendon reflexes 2+ bilaterally Romberg Test: Negative Psych Appearance: grossly normal Mental Status: mental status grossly normal Speech and movement: Normal speech and movement present Affect: normal affect Attitude: cooperative Thought process: Normal thought process present Thought content: Normal thought content present Insight: Good insight present (Psych) Judgement: Good judgement present (Psych) Immunizations Boostrix Tdap 2.5 Lf unit-8 mcg-5 Lf/0.5 mL intramuscular syringe Performing Provider: SAUL Macdonald Performing Location: [facility] Administered by: EZRA Wallace on 03/10/23 08:50 Dose Route Admin Location Dispensed Lot Number Expiration Date [employer] 0.5 mL IM Right Deltoid 0.5 mL [id number] 03/10/25 54942-352-47 [employer] VIS Given Date VIS Provided VIS Publication Date 03/10/23 Single Vaccine 20 Eligibility Eligibility Date Funding Source Not [facility] Eligible 03/10/23 Private Assessment and Plan Assessment & Plan (1) Physical exam: Code(s): Z00.00 - Encounter for general adult medical examination without abnormal findings (2) Screening for prostate cancer: Code(s): Z12.5 - Encounter for screening for malignant neoplasm of prostate Plan The patient agreed to the use of a emergency medical service coordinator for this encounter. Scribed for SAUL Modi by Corrina Cisneros emergency medical service coordinator, on 03/10/2023 at 08:25 EST. Orders: Orders UA CC w/rflx Micro + Cult Today Z00.00 - Encounter for general adult medical examination without abnormal findings Lipid Panel Today Z00.00 - Encounter for general adult medical examination without abnormal findings Complete Blood Count Auto Diff Today Z00.00 - Encounter for general adult medical examination without abnormal findings Comprehensive [place]. Panel Fast Today Z00.00 - Encounter for general adult medical examination without abnormal findings TSH reflex Free T4 Today Z00.00 - Encounter for general adult medical examination without abnormal findings Prostate Specific Antigen Scr 7 Months Z12.5 - Encounter for screening for malignant neoplasm of prostate TDaP Immunization Today Z23 - Encounter for immunization Coding Level of Care Code Est Pt Prev Care 40-64y(88986) Diagnoses Physical exam Z00.00 Screening for prostate cancer Z12.5 Additional Codes JANESSA-7 Assessment Billing - JANESSA-7 Assessment Tool: JANESSA-7 Assessment [id number] ([id number])
[2023-03-10 08:07] VITALS: BP 120/82; PULSE 68; O2SAT 97; BMI 32.3
== END 2023-03-10 08:52 | disposition home or self-care (01) ==
PROVIDERS: PCP Nurse Practitioner Family; Visit Provider Nurse Practitioner Family
DX: Z00.00 Encounter for general adult medical examination without abnormal findings (principal); Z12.5 Encounter for screening for malignant neoplasm of prostate; Z23 Encounter for immunization
CPT/HCPCS: 90471; 90715; 99396

== ENCOUNTER 2023-03-11 08:47 | Outpatient (AMB) | payer OTHER, SELFPAY ==
--- NOTE | 2023-03-11 08:51 | A.OFFVIS_ITS ---
Intake Vital Signs 03/11/23 08:59 Height 6 ft Weight 238 lb BMI 32.3 BP 131/74 Blood Pressure Location Lt brachial Position Sitting Pulse 68 Intake Visit Reasons: 1 year fu Intake Note: Patient follow up for abdominal discomfort and acid reflex. Patient denies any GI issues. 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 ?Reason:US shows large gallstone, fatty liver and pancreas, + pain ? CHRONIC ILLNESSES:?psoriasis, vitamin D deficiency, mixed hyperlipidemia, acquired hypothyroidism, GERD without esophagitis, obesity due to excess calories - BMI 31.0-31.9 in adult, RALPH, elevated bilirubin, substernal chest pain, left flank pain - h/o kidney stones 2009, calculus of gallbladder with biliary obstruction, without cholecystitis, PFT- a mild degree of restrictive pulmonary disorder is noted, which may be related to obesity; no obstructive airway disorder, Echo 08/2017 wnl ? LABS IN [facility]: 10/30/2018 normal CBC, ? 11/08/18 BUN 8, creatinine 1.47, bilirubin 1.3, AST 21, ALT 26, alkaline phosphatase 69, albumin 4.8 ? 06/2017: Stool for H pylori antigen was negative. ?IMAGING STUDIES:? 09/22/22 ABD US SHOWED: GALLBLADDER: The gallbladder is physiologically distended. There is a single large 3.5 x 2.4 x 2.9 cm nonmobile gallstone present. No evidence of gallbladder wall thickening or pericholecystic fluid. Garrett's sign is negative. COMMON BILE DUCT: Normal in caliber measuring 0.65 cm in diameter. RIGHT KIDNEY: Normal. No hydronephrosis. No renal calculi or focal parenchymal lesions. The kidney measures 10.1 cm in maximum dimension. FREE FLUID: None. US/US abdomen limited IMPRESSION: 1.? Hepatic steatosis with focal fatty s paring around the gallbladder. 2.? Cholelithiasis without evidence of c holecystitis. ?ENDOSCOPIC STUDIES: 01/22/20 COLONOSCOPY SHOWED: ? One small adenomatous polyp was removed ? Moderate diverticulosis seen in the sigmoid colon ? Moderate hemorrhoids on retroflexed exam. ? Plan:? Patient has an appointment on 03/25/20 in the GI Clinic with Twaana Ray M.D.-. ? Repeat Colonoscopy interval based on path results - in 5 years if polyps are adenomatous and 10 years if polyps are hyperplastic. ? Above findings were reviewed with the patient and colon polyps and diverticulosis handouts were given in the discharge area 01/05/19 EGD SHOWED: ? Esophagus: GE junction at 40 cms. Two 1 cms healing erosions. Irregular Z line ? - biopsied to check for Rene s. ? Stomach: Moderate diffuse gastric erythema with prominent gastric folds with ? small amount of heme in the stomach - biopsies were obtained from the gastric ? folds and antrum. Grade 2 flap ? valve on retroflexed examination of the cardia. ? Duodenum: Normal bulb and descending duodenum ? Intervention: Biopsies as noted above ? Impression and Post Procedure Diagnosis: ? Endoscopy Findings: ? ESOPHAGUS: Two small healing erosions and irregular Z line ? STOMACH: Diffuse gastritis with prominent gastric folds ? DUODENUM: Normal ? Plan: ? Await pathology results ? Patient has an appointment on 01/27/19 in the GI Clinic with Tawana Ray M.D ? Above findings were reviewed with the patient and GERD and Gastritis handouts ? were provided in the discharge area. ?BIOPSIES SHOWED: ? A. Stomach, biopsies: Reactive gastropathy with background mild chronic ? inactive inflammation; no Helicobacter organisms seen. ? B. Stomach, gastric fold, biopsies: Oxyntic type mucosa with mild chronic ? inactive inflammation; no Helicobacter organism seen. ? C. Esophagus, distal, biopsies: Esophagogastric junctional mucosa with mild ? chronic inflammation; squamous epithelium within normal limits; negative for ? intestinal metaplasia; negative for dysplasia. TODAY'S VISIT: GB surgery went well. RUQ pain has resolved since the surgery Denies heartburn or dysphagia PAST VISIT: Has been having intermittent episodes of sharp 6-7/10 RUQ pain since the end of August. First episode 20 min after eating dinner. Pain started in the RUQ and radiated to the epigastrium. Pain became worse on moving. 2nd episode woke him up from sleep and w as associated with nausea and cold sweats. Has not had additional episodes since then Pt denies vomiting or fever Has been taking VItamin D every 2-3 days Taking Pantoprazole once a day and takes a 2nd dose prn He was sick with COVID over Thanksgiving despite vaccination. Denies abdominal pain or GERD symptoms Rare breakthrough symptoms related to diet. Takes Pantoprazole at night and sometimes during the day for breakthrough symptoms. Mother had GB removed a few weeks ago. Not eager to have GB surgery yet. Doing good - no problems Stress test at [facility] and whole body US were good Heartburn is well controlled with the pantoprazole 40 mg twice daily. Had a physical exam 3 weeks ago. Noted burning abdominal pain on the left side which is bouncing all over his body - epigastric/RUQ/LUQ and lower chest shoulders. Pain can vary between burning and stinging. Some days are good and somedays are not so good. Pain resolves at night and able to sleep without any problems. Pain can last all day on some days. Can have intermittent throat irritation Sometimes improves after eating. At times, he does not feel good after eating. His weight has been stable at 232 lb - advised weight reduction of 10-15 lb due to fatty liver ? Stopped Zantac and started having some heartburn. ? Using Omeprazole for the past 4 days and appears to be helping ? Denies dysphagia. ? Finished with antbiotics for a cold followed by cough. ? 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 ? Denies recent change in bowel habits, black stools or rectal bleeding. ? Denies known FH of colon polyps or colon cancer. ? Maternal uncle recently diagnosed with abdominal/liver cancer - primary site is unclear. ? Denies pas issues with anesthesia. ? Denies major cardiac or pulmonary problems PFSH Medical History History of PFTs Diverticulosis Hematoma GERD (gastroesophageal reflux disease) Renal calculi Fatty liver Thyroid disease Elevated cholesterol Surgical History Hx laparoscopic cholecystectomy (01/04/23) History of colonoscopy History of evacuation of hematoma History of esophagogastroduodenoscopy (EGD) Family History Father CAD (coronary artery disease) Mother Hx of colon cancer, stage IV Social History Housing: House Alcohol intake: current Alcohol intake frequency: holidays/special occasions only Patient Tobacco Use Status: Never used Tobacco e-Cigarette/Vaping Use: Never Used Second Hand Smoke Exposure: No service: No Current occupational status: employed 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 Current occupational exposures/hazards: Yes Cognitive needs: No Hearing needs: No Vision needs: No Review of Systems Const All systems reviewed & are unremarkable except as noted in HPI and below Physical Exam Vital Signs: Last Vital Signs Pulse 68 03/11/23 08:59 BP 131/74 03/11/23 08:59 BMI result Body Mass Index 32.3 Const General: healthy appearing and no acute distress Nutritional Appearance: obese Orientation/consciousness: patient oriented x3 Limitations: no limitations HEENT Head: Yes normal to inspection Ears: hearing grossly normal bilaterally Eyes Sclerae: sclerae normal Pupils: Equal, round and reactive pupils present Neck Neck: Yes normal visual inspection Chest Chest palpation & inspection: normal inspection of the chest Resp Effort & Inspection: normal respiratory effort Auscultation: clear to auscultation bilaterally Cardio Palpation: normal PMI Rate: regular rate Rhythm: regular rhythm Heart sounds: S1 normal heart sound present, S2 normal heart sound present and no murmurs GI Palpation (GI): Soft to palpation, nontender and No hepatosplenomegaly present Auscultation: normal bowel sounds Rectal Exam - Male: Yes deferred Skin General skin exam: no rashes or lesions noted Neuro General: patient oriented x3, gait normal and moves all extremities Cranial nerves: Yes Equal, round and reactive pupils present Psych Appearance: grossly normal Mental Status: mental status grossly normal Assessment & Plan Assessment & Plan (1) Abdominal pain: Code(s): R10.9 - Unspecified abdominal pain (2) NAFL (nonalcoholic fatty liver): Code(s): K76.0 - Fatty (change of) liver, not elsewhere classified (3) Asymptomatic gallstones: Comment: no treatment needed, patient was advised to seek medical care if he developed any biliary symptoms. Code(s): K80.20 - Calculus of gallbladder without cholecystitis without obstruction (4) History of colon polyps: Comment: 01/22 one small tubular adenoma was removed during colonoscopy. Repeat colonoscopy is advised in 5 years (due in 01/27) Code(s): Z86.010 - Personal history of colonic polyps (5) GERD without esophagitis: Comment: Continue Pantoprazole 40 mg twice daily Code(s): K21.9 - Gastro-esophageal reflux disease without esophagitis (6) Diverticulosis: Code(s): K57.90 - Diverticulosis of intestine, part unspecified, without perforation or abscess without bleeding (7) Vitamin D deficiency: Code(s): E55.9 - Vitamin D deficiency, unspecified Plan 52 YM with psoriasis, vitamin D deficiency, mixed hyperlipidemia, acquired hypothyroidism, GERD without esophagitis, obesity due to excess calories - BMI 32.3 in adult, RALPH, elevated bilirubin, substernal chest pain, left flank pain - h/o kidney stones 2009, calculus of gallbladder without cholecystitis, Echo 08/2017 wnl. Patient is followed in GI for noncardiac chest pain associated with symptoms of heartburn, fatty liver and possible fat in the pancreas and asymptomatic gallstone. Noncardiac chest pain is likely related to esophageal spasm associated with the GERD. Symptoms improved with ranitidine 150 mg at bedtime. He noted recurrent hea rtburn on stopping ranitidine since it was not covered by his insurance. Upper endoscopy showed gastritis and two 1 cms healing esophageal erosions and no Rene's. Omeprazole 20 mg daily was prescribed and patient has noted breakthrough symptoms. Fatty liver with suspected fat in the pancreas likely related to obesity. Recent LFTs were normal. Patient was advised to work on weight reduction. Patient was advised to increase pantoprazole to 40? mg twice daily and decrease vitamin-D to every other day due to high levels in the past 05/09/20 Pt called and abdominal US results were reviewed with him US reviewed with radiology - gallstone size is 2.5 cms (increased from 1.75 cms in 2019. He may need a prophylactic Lap Brittany if gallstone is > 3 cms due to increased risk of GB cancer associated with large gallstones. Pt stated he is feeling better - has been trying to take PPI twice a day which has helped (sometimes he forgets to take it) 09/2021 ABD US SHOWED: Gallstones. Echogenic liver probably representing fatty infiltration.? Largest gallstone is almost 3 cms. 10/09/22 Intermittent episodes of RUQ pain and gallstone size increased to 3.5 cms 01/04/23 Pt had a Lap Brittany by Dr Matos 03/11/23 Abd pain resolved after Lap brittany FU appt in 1 year Orders: Orders Vitamin D 25-OH Total Today E55.9 - Vitamin D deficiency, unspecified Medications: Discontinued oxycodone Partial Fill upon patient request. Discontinued Reason: Patient Completed Course 5 mg PO Q6H PRN 15 tabs 0RF pain (scale score 7-10) K80.50 - Calculus of bile duct without cholangitis or cholecystitis without obstruction ibuprofen Discontinued Reason: Patient Completed Course 600 mg PO Q8H PRN 10 tabs 0RF pain (scale score 4-6) K80.50 - Calculus of bile duct without cholangitis or cholecystitis without obstruction Coding Level of Care Code Est Pt Level 4 (01818) Diagnoses Abdominal pain R10.9 NAFL (nonalcoholic fatty liver) K76.0 Asymptomatic gallstones K80.20 History of colon polyps Z86.010 GERD without esophagitis K21.9 Diverticulosis K57.90 Vitamin D deficiency E55.9 Time Spent (min) 17
[2023-03-11 08:59] VITALS: BP 131/74; PULSE 68; BMI 32.3
== END 2023-03-11 09:47 | disposition home or self-care (01) ==
PROVIDERS: PCP Nurse Practitioner Family; Visit Provider Internal Medicine Gastroenterology
DX: R10.9 Unspecified abdominal pain (principal); K76.0 Fatty (change of) liver, not elsewhere classified; K80.20 Calculus of gallbladder without cholecystitis without obstruction; Z86.010 Personal history of colon polyps; K21.9 Gastro-esophageal reflux disease without esophagitis; K57.90 Diverticulosis of intestine, part unspecified, without perforation or abscess without bleeding; E55.9 Vitamin D deficiency, unspecified
CPT/HCPCS: 99214

== ENCOUNTER → 2023-03-11 08:47 | Outpatient (BNVA) | payer OTHER, SELFPAY | PROVIDERS: PCP Nurse Practitioner Family; Visit Provider Internal Medicine Gastroenterology ==

== ENCOUNTER 2023-06-25 09:38 | Outpatient (AMB) | payer OTHER, SELFPAY ==
--- NOTE | 2023-06-25 09:42 | A.OFFPC_ITS ---
Vital Signs 06/25/23 09:43 06/25/23 09:51 Height 6 ft Weight 230 lb BMI 31.2 BP 143/90 H 132/96 H Blood Pressure Location Rt brachial Rt brachial Position Sitting Sitting Respiration 13 Pulse 64 Pulse Source Pulse Oximeter Temp 97.7 F Temp Source Temporal Artery Scan Pulse Oximetry (%) 99 Oxygen Delivery Method Room Air Intake Visit Reasons: foot problem Intake Note: Patient is here for pain in the left heel for several months. 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 Required: No Accompanied by: Self / Same As Patient Allergies No Known Allergies [No Known Allergies*] Allergy (Verified 06/25/23 10:20) Medication List - Last Reconciled 06/25/23 by Miranda Day, KATRINA- cholecalciferol (vitamin D3) 125 mcg PO DAILY 90 days levothyroxine 100 mcg PO DAILY pantoprazole 40 mg PO BID 90 days rosuvastatin (Crestor) 5 mg PO DAILY Tobacco use date assessed: 06/25/23 Dental Screening Dental Screen Date: 06/25/23 Did you have a dental visit in the last 12 months?: Yes Did you have a dental problem in the last 6 months where you did not have access to dental care?: No Was dental information given to patient?: Patient has dentist HPI HPI Comments History of Present Illness Details 52-year-old male with nonalcoholic liver obesity, GERD, hypothyroidism, hyperlipidemia, vitamin-D deficiency, psoriasis, diverticulosis, renal calculi, elevated serum Status post lap cholecystectomy 2022 Health maintenance Colonoscopy January 2020 repeat in 5 years due January 2025 EGD 01/05/2019 GASTRITIS AND 2 1 CM HEALING ESOPHAGEAL EROSIONS WITH NO JOHNSTON'S PFT- a mild degree of restrictive pulmonary disorder is noted, which may be related to obesity; no obstructive airway disorder Echo 08/2017 wnl Labs 09/07/2022 show a normal CBC, normal glucose, BUN 17, creatinine 1.45, bilirubin 1.7, ALT 48, triglycerides 148, total cholesterol 233, LDL 149, HDL 55, normal PSA, elevated vitamin-D 76 point, TSH 1.07, normal urine Specialists GI Renal Here today w/ c/o pain in L heel Admits childhood pain in the same area from standing a lot. A few months ago, noticed the pain again. Went to provider in Dec - advised to ice. Since this time, has not gotten worse, however more frequent, Has been off work last few days and does not really have the pain. Yesterday when getting out of bed, had extreme pain upon standing. Quick review of labs show an elevated vitamin-D. He has taking a vitamin-D supplement. [facility] Medical History History of PFTs Diverticulosis Hematoma GERD (gastroesophageal reflux disease) Renal calculi Fatty liver Thyroid disease Elevated cholesterol Surgical History Hx laparoscopic cholecystectomy (01/04/23) History of colonoscopy History of evacuation of hematoma History of esophagogastroduodenoscopy (EGD) Family History Father CAD (coronary artery disease) Mother Hx of colon cancer, stage IV Social History (Updated 06/25/23 @ 09:50 by Doris Oleary CMA) Household Members: Spouse and Children Both parents involved: No Caregiver staying overnight: No Housing: House Are you a primary child adolescent care to a significant other at home: No Do you presently have visiting nurse or other home services: No 75 years or older and lives alone: No Alcohol intake: current Alcohol intake frequency: holidays/special occasions only Patient Tobacco Use Status: Never used Tobacco e-Cigarette/Vaping Use: Never Used Second Hand Smoke Exposure: No service: No Current occupational status: employed 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 1. Little interest or pleasure in doing things: not at all 2. Feeling down, depressed, or hopeless: not at all 3. Trouble falling or staying asleep, or sleeping too much: not at all 4. Feeling tired or having little energy: not at all 5. Poor appetite or overeating: not at all 6. Feeling bad about yourself - or that you are a failure or have let yourself or your family down: not at all 7. Trouble concentrating on things, such as reading the newspaper or watching television: not at all 8. Moving or speaking so slowly that other people could have noticed. Or the opposite - being so fidgety or restless that you have been moving around a lot more than usual: not at all 9. Thoughts that you would be better off or of hurting yourself in some way: not at all Total score: 0 Depression Screening Interpretation: Negative Depression Screening Done: Yes 14151 - PHQ-9 Billing: Yes Source: Developed by Drs. Clint Kelley, Marielle Velazquez, Yoan Sampson and colleagues, with an educational jose e from [email or web address]. Thrive Questionnaire Date Thrive assessed: 06/25/23 I am a: Patient What is your living situation today?: I have a steady place to live Within the past 12 months, did the food you bought not last and you didn't have the money to get more?: Never true Within the past 12 months, did you worry whether your food would run out before you got money to buy more?: Never true Do you have trouble paying for medicines?: No Do you have trouble getting transportation to medical appointments?: No Do you have trouble paying your heating and electricity bill?: No Do you have trouble taking care of your child, family member or friend?: No Do you have trouble with day-to-day activities such as bathing, preparing meals, shopping, managing finances, etc.?: No Are you currently unemployed and looking for a job?: No Are you interested in more education?: No Please select the resources that you would like help with: None Currently or been in a relationship where the following occur: no concerns reported THRIVE Score: 0 AUDIT C Alcohol Use Questionnaire (AUDIT-C) 1. How often do you have a drink containing alcohol?: Never 3. How often do you have six or more drinks on one occasion?: Never Total Score: 0 Score Reviewed/Action Taken: Yes JANESSA-7 AMB Questionnaire JANESSA-7 Date JANESSA - 7 assessed: 06/25/23 Feeling nervous, anxious, or on edge: 0 = Not at all Not being able to stop or control worryin = Not at all Worrying too much about different things: 0 = Not at all Trouble relaxin = Not at all Being so restless that it is hard to sit still: 0 = Not at all Becoming easily annoyed or irritable: 0 = Not at all Feeling afraid as if something awful might happen: 0 = Not at all Total JANESSA-7 score (0-4 normal; 5-9 mild; 10-14 moderate; 15-21 severe): 0 Source: Developed by Drs. Clint Kelley, Marielle Velazquez, Yoan Sampson and colleagues, with an educational jose e from [email or web address]. JANESSA-7 Assessment Billing JANESSA-7 Assessment Tool: JANESSA-7 Assessment 79636 Review of Systems Const All systems reviewed & are unremarkable except as noted in HPI and below Physical exam (Primary Care) Vital Signs: Last Vital Signs Temp 97.7 F 06/25/23 09:43 Pulse 64 06/25/23 09:43 Resp 13 06/25/23 09:43 BP 132/96 H 06/25/23 09:51 Pulse Ox 99 06/25/23 09:43 Oxygen Delivery Method Room Air 06/25/23 09:43 BMI result Body Mass Index 31.2 BMI Assessment/Plan discussion: High BMI High, discussed plan: lifestyle Tobacco/Smoking Status: Tobacco use Status Tobacco use date assessed 06/25/23 06/25/23 09:53 Patient Tobacco Use Status Never used Tobacco 06/25/23 09:53 e-Cigarette/Vaping Use Never Used 06/25/23 09:53 PHQ-9: PHQ-9 Score PHQ-9: Total score 0 06/25/23 10:05 Depression Screening Interpretation: Negative Thrive Assessment: Date of Thrive Assessment Date Thrive assessed 06/25/23 06/25/23 09:53 Currently or been in a relationship where the following occur: no concerns reported Const Other: Awake alert oriented Left foot neurovascularly intact. No obvious deformities. Pain over insertion of plantar fascia with palpation. Assessment and Plan Assessment & Plan (1) Plantar fasciitis of left foot: Code(s): M72.2 - Plantar fascial fibromatosis Plan: Shown exercises that he can perform daily. If no improvement, refer to podiatry for injection. (2) Vitamin D deficiency: Comment: Taking 5000 mcg daily. Vitamin-D level greater than 70. Advised to discontinue supplement. We will trend at future labs. Code(s): E55.9 - Vitamin D deficiency, unspecified Plan This note is constructed using voice recognition software. While every effort has been made to ensure accuracy in banjo repair person, still errors may have been included Sometimes, these errors may affect the content or meaning of the given sentence . Total time spent caring for the patient today was 60 minutes. This includes time spent before the visit reviewing the chart, time spent during the visit, and time spent after the visit on documentation Medications: Refilled levothyroxine 100 mcg PO DAILY 90 tabs 0RF Discontinued cholecalciferol (vitamin D3) Discontinued Reason: Doctor's Order 125 mcg PO DAILY 90 days 90 caps 1RF Patient Instructions: Return to office in September for a 30 minute visit to review your labs and to establish care for chronic disease management. Coding Level of Care Code Est Pt Level 5 (40239) Diagnoses Plantar fasciitis of left foot M72.2 Vitamin D deficiency E55.9 Additional Codes JANESSA-7 Assessment Billing - JANESSA-7 Assessment Tool: JANESSA-7 Assessment 16507 ([id number])
[2023-06-25 09:43] VITALS: BP 143/90; PULSE 64; RESP 13; TEMP 36.5; O2SAT 99; BMI 31.2
[2023-06-25 09:51] VITALS: BP 132/96
== END 2023-06-25 10:56 | disposition home or self-care (01) ==
PROVIDERS: PCP Nurse Practitioner Family; Visit Provider Nurse Practitioner Family
DX: M72.2 Plantar fascial fibromatosis (principal); E55.9 Vitamin D deficiency, unspecified
CPT/HCPCS: 99215

== ENCOUNTER 2023-09-04 09:36 | Outpatient (REF) | payer OTHER, SELFPAY ==
[2023-09-04 11:50] LABS: Basophils Percent Auto 0.5 % (0-2); Eosinophils Absolute Auto 0.1 X10*3/uL (0.0-0.4); Eosinophils Percent Auto 1.4 % (0-4); Hematocrit 45.6 % (42.0-52.0); Hemoglobin 15.6 g/dl (14.0-18.0); Imm Gran Abs Auto 0.02 X10*3/uL (0.00-0.03); Imm Gran Pct Auto 0.3 % (0.0-0.4); Lymphocytes Absolute Auto 2.1 X10*3/uL (1.2-4.9); Lymphocytes Percent Auto 35.5 % (20-40); MANUAL DIFF FLAG NO; Mean Corpuscular HGB Conc 34.2 g/dl (31.0-36.0); Mean Corpuscular Hemoglobin 30.8 pg (27.0-33.0); Mean Corpuscular Volume 89.9 fL (80.0-98.0); Mean Platelet Volume 10.1 fL (9.4-12.4); Monocytes Absolute Auto 0.4 X10*3/uL (0.1-1.2); Monocytes Percent Auto 6.8 % (2-11); Neutrophils Absolute Auto 3.3 x10*3/uL (2.0-8.3); Neutrophils Percent Auto 55.5 % (45-73); Platelet Count 259 X10*3/uL (160-400); Red Blood Count 5.07 X10*6/uL (4.60-5.80); Red Cell Distribution Width 12.4 % (11.0-16.0); White Blood Count 5.9 X10*3/uL (4.8-10.8)
[2023-09-04 11:58] LABS: Appearance Urine Clear; Color Urine Yellow; Glucose Urine UA Negative (Negative); Leukocyte Esterase Urine Negative (Negative); Nitrite Urine Negative (Negative); Urine Blood Negative (Negative); Urine Ketones Negative (Negative); Urine Protein Negative (Neg-Trace)
[2023-09-04 12:25] LABS: Alanine Aminotransferase 41 U/L (0-40); Albumin Level 4.7 g/dL (3.5-5.0); Alkaline Phosphatase 68 U/L (39-117); Anion Gap 12 (12-20); Aspartate Amino Transferase 24 U/L (5-37); Bilirubin Total 1.7 mg/dL (0.0-1.0); Blood Urea Nitrogen 22 mg/dL (9-16); Calcium 9.9 mg/dL (8.4-10.2); Carbon Dioxide 26 mmol/L (22-29); Chloride 107 mmol/L (96-108); Cholesterol 153 mg/dL (<200); Estimated Glomerular Filt Rate 51; Glucose Fasting 94 mg/dL (60-99); HDL Cholesterol 51 mg/dL (>40); LDL Cholesterol Calculated 77 mg/dL (<100); Potassium 3.9 mmol/L (3.3-5.1); Sodium 141 mmol/L (135-145); Total Protein 7.8 g/dL (6.5-8.0); Triglycerides 127 mg/dL (<150)
[2023-09-04 12:38] LABS: TSH reflex Free T4 2.73 uIU/mL (0.32-4.0)
== END 2023-09-04 09:37 | disposition home or self-care (01) ==
LOC: HO.HMGCLDS 09:36
PROVIDERS: PCP Nurse Practitioner Family; Referring Provider Nurse Practitioner Family; Visit Provider Nurse Practitioner Family
DX: Z00.00 Encounter for general adult medical examination without abnormal findings (principal)
CPT/HCPCS: 36415; 80053; 80061; 81003; 84443; 85025

== ENCOUNTER 2023-09-17 10:13 | Outpatient (AMB) | payer OTHER, SELFPAY ==
--- NOTE | 2023-09-17 10:27 | A.OFFPC_ITS ---
Vital Signs 09/17/23 10:32 Height 6 ft Weight 245 lb 6 oz BMI 33.3 BP 120/82 Blood Pressure Location Lt brachial Position Sitting Respiration 14 Pulse 64 Pulse Source Pulse Oximeter Pulse Oximetry (%) 95 Oxygen Delivery Method Room Air Intake Visit Reasons: est care/chronic dz mgmt/lab FU Intake Note: lab F/U Allergies No Known Allergies [No Known Allergies*] Allergy (Verified 09/17/23 11:01) Medication List - Last Reconciled 09/17/23 by KATRINA Rowe- levothyroxine 100 mcg PO DAILY pantoprazole 40 mg PO BID 90 days rosuvastatin (Crestor) 5 mg PO DAILY Tobacco use date assessed: 09/17/23 Dental Screening Dental Screen Date: 09/17/23 Did you have a dental visit in the last 12 months?: No Did you have a dental problem in the last 6 months where you did not have access to dental care?: No Was dental information given to patient?: Patient has dentist HPI HPI Comments History of Present Illness Details 52-year-old male with nonalcoholic liver obesity, GERD, hypothyroidism, hyperlipidemia, vitamin-D deficiency, psoriasis, diverticulosis, renal calculi, elevated serum Status post lap cholecystectomy 2022 Health maintenance Colonoscopy January 2020 repeat in 5 years due January 2025 EGD 01/05/2019 GASTRITIS AND 2 1 CM HEALING ESOPHAGEAL EROSIONS WITH NO JOHNSTON'S PFT- a mild degree of restrictive pulmonary disorder is noted, which may be related to obesity; no obstructive airway disorder Echo 08/2017 wnl Labs 09/07/2022 show a normal CBC, normal glucose, BUN 17, creatinine 1.45, bilirubin 1.7, ALT 48, triglycerides 148, total cholesterol 233, LDL 149, HDL 55, normal PSA, elevated vitamin-D 76 point, TSH 1.07, normal urine Specialists GI next appt 03/08/24 Renal next appt 11/14/24 Here today for chronic dz mgmt Bilat plantar fascitiis - good days and bad days, doing his exercises; felt fine on vacation while wearing flip flops; does have pain that includes the entire left foot at times. Can have pain in the left knee too. Does not necessarily think this is related. LDL is at goal on current statin. EUthyroid on current meds. Stopped taking Vit d given elevated levels at last draw. Labs 09/04/2023 show normal CBC, normal electrolytes, BUN 22, creatinine 1.47, stable GFR 51, elevated total bilirubin 1.7, elevated ALT 41, normal AST, normal alk phos, normal total protein and albumin, normal lipid profile with LDL 77, TSH 2.73, urine normal Plan: Refer to Dr Gray in [facility] for eval and tx of bilat foot pain Cont statin and levothyrozine at current dose Check addl labs today: b12, vit d, urine micro, PSA, Hga1c, liver labs/bili labs Labs from today show a normal absolute reticulocyte count,% reticulocyte count, mild elevation in both the immature reticulocyte fraction and the reticulocyte hemoglobin equivalent, A1c 5.5%, mild elevation and direct bilirubin 0.6, normal GGT, mild elevation in the LDH 275, vitamin-D 85.9, normal urine microalbumin creatinine ratio The findings on these labs are not clinically significant at this time I do not think that there is any further follow up needed. He is already active with GI. If he develops any GI symptoms we will further evaluate. PFSH Medical History History of PFTs Diverticulosis Hematoma GERD (gastroesophageal reflux disease) Renal calculi Fatty liver Thyroid disease Elevated cholesterol Surgical History Hx laparoscopic cholecystectomy (01/04/23) History of colonoscopy History of evacuation of hematoma History of esophagogastroduodenoscopy (EGD) Family History Father CAD (coronary artery disease) Mother Hx of colon cancer, stage IV Social History (Updated 06/25/23 @ 09:50 by Doris Oleary CMA) Household Members: Spouse and Children Housing: House Are you a primary early breastfeeding care specialist to a significant other at home: No Do you presently have visiting nurse or other home services: No Alcohol intake: current Alcohol intake frequency: holidays/special occasions only Patient Tobacco Use Status: Never used Tobacco e-Cigarette/Vaping Use: Never Used Second Hand Smoke Exposure: No service: No Current occupational status: employed 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 How often do you have a drink containing alcohol?: Monthly or less 2. How many drinks containing alcohol do you have on a typical day when you are drinking?: 1 or 2 3. How often do you have six or more drinks on one occasion?: Less than monthly Total Score: 2 JANESSA-7 AMB Questionnaire JANESSA-7 Date JANESSA - 7 assessed: 06/25/23 Source: Developed by Drs. Clint Kelley, Marielle Velazquez, Yoan Sampson and colleagues, with an educational jose e from [employer]. Review of Systems Const All systems reviewed & are unremarkable except as noted in HPI and below Physical exam (Primary Care) Vital Signs: Last Vital Signs Pulse 64 09/17/23 10:32 Resp 14 09/17/23 10:32 BP 120/82 09/17/23 10:32 Pulse Ox 95 09/17/23 10:32 Oxygen Delivery Method Room Air 09/17/23 10:32 BMI result Body Mass Index 33.3 BMI Assessment/Plan discussion: High BMI High, discussed plan: lifestyle Tobacco/Smoking Status: Tobacco use Status Tobacco use date assessed 09/17/23 09/17/23 10:34 Patient Tobacco Use Status Never used Tobacco 09/17/23 10:34 e-Cigarette/Vaping Use Never Used 09/17/23 10:28 Thrive Assessment: Date of Thrive Assessment Date Thrive assessed 06/25/23 09/17/23 10:28 Const Other: Awake alert scleras nonicteric bilat MMM RRR abd soft, nontender LS CTAB no edema BLE Assessment and Plan Assessment & Plan (1) Bilateral plantar fasciitis: Code(s): M72.2 - Plantar fascial fibromatosis (2) Vitamin D deficiency: Comment: was taking 5000 mcg daily. Vitamin-D level greater than 70. Advised to discontinue supplement. We will trend at future labs. Code(s): E55.9 - Vitamin D deficiency, unspecified (3) Obesity (BMI 30.0-34.9): Code(s): E66.9 - Obesity, unspecified (4) NAFL (nonalcoholic fatty liver): Code(s): K76.0 - Fatty (change of) liver, not elsewhere classified (5) Elevated serum creatinine: Comment: Evaluated by renal 11/10/2022. The thought is that the creatinine is elevated given his muscle mass and not a true representation of his GFR. Normal imaging. Annual follow up with renal Code(s): R79.89 - Other specified abnormal findings of blood chemistry (6) Elevated bilirubin: Code(s): R17 - Unspecified jaundice (7) Screening for prostate cancer: Code(s): Z12.5 - Encounter for screening for malignant neoplasm of prostate (8) Hypothyroidism: Code(s): E03.9 - Hypothyroidism, unspecified Qualifiers: Hypothyroidism type: acquired Qualified Code(s): E03.9 - Hypothyroidism, unspecified Plan This note is constructed using voice recognition software. While every effort has been made to ensure accuracy in car tester, still errors may have been included Sometimes, these errors may affect the content or meaning of the given sentence . Total time spent caring for the patient today was 45 minutes. This includes time spent before the visit reviewing the chart, time spent during the visit, and time spent after the visit on documentation Orders: Orders Hemoglobin A1c Today E55.9 - Vitamin D deficiency, unspecified, E66.9 - Obesity, unspecified, K76.0 - Fatty (change of) liver, not elsewhere classified, R17 - Unspecified jaundice, R79.89 - Other specified abnormal findings of blood chemistry Haptoglobin Today E55.9 - Vitamin D deficiency, unspecified, E66.9 - Obesity, unspecified, K76.0 - Fatty (change of) liver, not elsewhere classified, R17 - Unspecified jaundice, R79.89 - Other specified abnormal findings of blood chemistry Reticulocyte Count Today E55.9 - Vitamin D deficiency, unspecified, E66.9 - Obesity, unspecified, K76.0 - Fatty (change of) liver, not elsewhere classified, R17 - Unspecified jaundice, R79.89 - Other specified abnormal findings of blood chemistry Ferritin Today E55.9 - Vitamin D deficiency, unspecified, E66.9 - Obesity, unspecified, K76.0 - Fatty (change of) liver, not elsewhere classified, R17 - Unspecified jaundice, R79.89 - Other specified abnormal findings of blood c hemistry Lactate Dehydrogenase Today E55.9 - Vitamin D deficiency, unspecified, E66.9 - Obesity, unspecified, K76.0 - Fatty (change of) liver, not elsewhere classified, R17 - Unspecified jaundice, R79.89 - Other specified abnormal findings of blood chemistry Bilirubin Direct Today E55.9 - Vitamin D deficiency, unspecified, E66.9 - Obesity, unspecified, K76.0 - Fatty (change of) liver, not elsewhere classified, R17 - Unspecified jaundice, R79.89 - Other specified abnormal findings of blood chemistry PSA, Ultra Sensitive Today Z12.5 - Encounter for screening for malignant neoplasm of prostate Microalbumin, Random (w Creat) Today E55.9 - Vitamin D deficiency, unspecified, E66.9 - Obesity, unspecified, K76.0 - Fatty (change of) liver, not elsewhere classified, R17 - Unspecified jaundice, R79.89 - Other specified abnormal findings of blood chemistry Vitamin B12 and Folate Today E55.9 - Vitamin D deficiency, unspecified, E66.9 - Obesity, unspecified, K76.0 - Fatty (change of) liver, not elsewhere classified, R17 - Unspecified jaundice, R79.89 - Other specified abnormal findings of blood chemistry Vitamin D 25-OH Total Today E55.9 - Vitamin D deficiency, unspecified, E66.9 - Obesity, unspecified, K76.0 - Fatty (change of) liver, not elsewhere classified, R17 - Unspecified jaundice, R79.89 - Other specified abnormal findings of blood chemistry Gamma Glutamyl Transpeptidase Today E55.9 - Vitamin D deficiency, unspecified, E66.9 - Obesity, unspecified, K76.0 - Fatty (change of) liver, not elsewhere classified, R17 - Unspecified jaundice, R79.89 - Other specified abnormal findings of blood chemistry Referrals Podiatry Referral M72.2 - Plantar fascial fibromatosis Patient Instructions: Plan: Refer to Dr Gray in [facility] for eval and tx of bilat foot pain Cont statin and levothyrozine at current dose Check addl labs today: b12, vit d, urine micro, PSA, Hga1c, liver labs/bili labs Coding Level of Care Code Est Pt Level 5 (17731) Diagnoses Bilateral plantar fasciitis M72.2 Vitamin D deficiency E55.9 Obesity (BMI 30.0-34.9) E66.9 NAFL (nonalcoholic fatty liver) K76.0 Elevated serum creatinine R79.89 Elevated bilirubin R17 Screening for prostate cancer Z12.5 Acquired hypothyroidism E03.9 Hypothyroidism type: acquired
[2023-09-17 10:32] VITALS: BP 120/82; PULSE 64; RESP 14; O2SAT 95; BMI 33.3
== END 2023-09-17 11:41 | disposition home or self-care (01) ==
PROVIDERS: PCP Nurse Practitioner Family; Visit Provider Nurse Practitioner Family
DX: M72.2 Plantar fascial fibromatosis (principal); E55.9 Vitamin D deficiency, unspecified; E66.9 Obesity, unspecified; Z68.33 Body mass index [BMI] 33.0-33.9, adult; K76.0 Fatty (change of) liver, not elsewhere classified; R79.89 Other specified abnormal findings of blood chemistry; R17 Unspecified jaundice; Z12.5 Encounter for screening for malignant neoplasm of prostate; E03.9 Hypothyroidism, unspecified
CPT/HCPCS: 99215

== ENCOUNTER 2023-09-17 11:28 | Outpatient (REF) | payer OTHER, SELFPAY ==
[2023-09-17 14:48] LABS: Immature Retic Fraction 14.6 % (2.3-13.4); Retic HGB Equivalent 35.9 pg (30.0-35.0); Reticulocyte Percent 1.7 % (0.5-1.8); Reticulocytes Absolute 0.079 X10*6/uL (0.026-0.095)
[2023-09-17 15:04] LABS: Estimated Average Glucose 111 mg/dL; Hemoglobin A1c % 5.5 % (<6.0)
[2023-09-17 15:11] LABS: Bilirubin Direct 0.6 mg/dL (0.0-0.5); Gamma Glutamyl Transpeptidase 50 U/L (11-51); Lactate Dehydrogenase 275 U/L (118-273)
[2023-09-17 15:13] LABS: Creatinine Urine 144.11 mg/dL; Microalbum/Creatinine Ratio Ur 4.1 ug/mg cr (<30)
[2023-09-17 15:32] LABS: Ferritin 291 ng/mL (20-250); Vitamin D 25-OH Total 85.9 ng/mL (>30)
[2023-09-17 15:35] LABS: Folate 7.6 ng/mL (> or = 4.0); Vitamin B12 425 pg/mL (200-900)
[2023-09-20 21:14] LABS: Haptoglobin 77 mg/dL (43-212)
[2023-09-24 20:58] LABS: PSA, Ultra Sensitive 0.36 ng/mL
== END 2023-09-17 11:29 | disposition home or self-care (01) ==
LOC: HO.WFDLDS 11:28
PROVIDERS: Visit Provider Nurse Practitioner Family
DX: R17 Unspecified jaundice (principal); R79.89 Other specified abnormal findings of blood chemistry; K76.0 Fatty (change of) liver, not elsewhere classified; E66.9 Obesity, unspecified; E55.9 Vitamin D deficiency, unspecified; Z12.5 Encounter for screening for malignant neoplasm of prostate
CPT/HCPCS: 36415; 82043; 82248; 82306; 82570; 82607; 82728; 82746; 82977; 83010; 83036; 83615; 84153; 85045

== ENCOUNTER 2023-09-25 07:35 | Outpatient (REF) | payer OTHER, SELFPAY ==
[2023-09-25 08:03] LABS: Baso%MD 0.6 %; Eos%MD 1.3 %; Hematocrit 42.4 % (42.0-52.0); Hemoglobin 14.7 g/dl (14.0-18.0); IG%MD 0.2 %; Lymph%MD 33.5 %; Mean Corpuscular HGB Conc 34.7 g/dl (31.0-36.0); Mean Corpuscular Hemoglobin 31.3 pg (27.0-33.0); Mean Corpuscular Volume 90.4 fL (80.0-98.0); Mean Platelet Volume 9.7 fL (9.4-12.4); Mono%MD 9.2 %; Neut%MD 55.2 %; Platelet Count 215 X10*3/uL (160-400); Red Blood Count 4.69 X10*6/uL (4.60-5.80); Red Cell Distribution Width 12.7 % (11.0-16.0); White Blood Count 4.7 X10*3/uL (4.8-10.8)
[2023-09-25 08:29] LABS: Bilirubin Total 1.5 mg/dL (0.0-1.0)
[2023-09-25 09:17] LABS: Band Neutrophils Percent 0 % (3-5); Eosinophils Percent Manual 1 % (0-4); Lymphocytes Absolute Manual 1.4 X10*3/uL (1.2-4.9); Lymphocytes Percent Manual 29 % (20-40); Monocytes Absolute Manual 0.2 X10*3/uL (0.1-1.2); Monocytes Percent Manual 4 % (2-11); Neutrophils Absolute Manual 3.1 X10*3/uL (2.0-8.3); Neutrophils Percent Manual 66 % (45-73)
[2023-09-25 09:18] LABS: Platelet Estimate NORMAL (NORMAL); Platelet Morphology Comment NORMAL; RBC Morphology NORMAL
[2023-10-02 19:04] LABS: PSA, Ultra Sensitive 0.47 ng/mL
== END 2023-09-25 07:36 | disposition home or self-care (01) ==
LOC: HO.LAB 07:35
PROVIDERS: PCP Nurse Practitioner Family; Visit Provider Nurse Practitioner Family
DX: R17 Unspecified jaundice (principal); K76.0 Fatty (change of) liver, not elsewhere classified; Z12.5 Encounter for screening for malignant neoplasm of prostate
CPT/HCPCS: 36415; 82247; 84153; 85007; 85027

== ENCOUNTER 2023-11-23 08:04 | Outpatient (AMB) | payer OTHER, SELFPAY ==
--- NOTE | 2023-11-23 08:08 | MHC.OFFWIV ---
Intake Vital Signs 11/23/23 08:09 Height 6 ft Weight 245 lb BMI 33.2 BP 118/76 Blood Pressure Location Rt brachial Position Sitting Pulse 72 Pulse Source Pulse Oximeter Temp 98.2 F Temp Source Oral Pulse Oximetry (%) 96 Oxygen Delivery Method Room Air Intake Visit Reasons: EP ?Bronchitis Intake Note: patient here for possible bronchitis, fatigue,cough, mucus coming up that has been present since Wednesday. Patient Tobacco Use Status: Never used Tobacco Allergies No Known Allergies [No Known Allergies*] Allergy (Verified 11/23/23 08:09) Do you need a note to return to daycare/school/sports/work: No HPI HPI Comments History of Present Illness Details Patient is a 52-year-old male complaining of 5 days of a cough. He states sometimes it is productive with green yellow sputum, sometimes it is dry. He also has associated chest congestion and can feel it all in his chest. He denies any fevers, sinus pain, shortness of breath or heart palpitations. He denies a history of asthma or COPD. He states he usually gets this once or twice a year and he needs a Z-Corey to knock it out of him. He states he is going away this weekend and wants to make sure he feels better so he wants to air on the side of caution and get treatment. PFSH Medical History History of PFTs Diverticulosis Hematoma GERD (gastroesophageal reflux disease) Renal calculi Fatty liver Thyroid disease Elevated cholesterol Surgical History Hx laparoscopic cholecystectomy (01/04/23) History of colonoscopy History of evacuation of hematoma History of esophagogastroduodenoscopy (EGD) Family History Father CAD (coronary artery disease) Mother Hx of colon cancer, stage IV Social History (Updated 06/25/23 @ 09:50 by Doris Oleary CMA) Household Members: Spouse and Children Both parents involved: No Caregiver staying overnight: No Housing: House Are you a primary direct care specialist to a significant other at home: No Do you presently have visiting nurse or other home services: No 75 years or older and lives alone: No Alcohol intake: current Alcohol intake frequency: holidays/special occasions only Patient Tobacco Use Status: Never used Tobacco e-Cigarette/Vaping Use: Never Used Second Hand Smoke Exposure: No service: No Current occupational status: employed 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 Current occupational exposures/hazards: Yes Sexual orientation: Unable to collect Gender identity: Unable to collect Cognitive needs: No Hearing needs: No Vision needs: No Review of Systems Const All systems reviewed & are unremarkable except as noted in HPI and below Physical Exam Vital Signs: Last Vital Signs Temp 98.2 F 11/23/23 08:09 Pulse 72 11/23/23 08:09 BP 118/76 11/23/23 08:09 Pulse Ox 96 11/23/23 08:09 Oxygen Delivery Method Room Air 11/23/23 08:09 BMI result Body Mass Index 33.2 Const General: cooperative, healthy appearing, comfortable and no acute distress Orientation/consciousness: patient oriented x3 Limitations: no limitations HEENT Head: Yes normal to inspection Ears: hearing grossly normal bilaterally, external ears normal and TM's normal bilaterally General nose exam: Normal external nose present, Normal nares present and No nasal discharge present Face and sinus: Yes normal facial exam and Yes sinuses nontender Mouth: Normal oral and palatal mucosa present and moist mucous membranes Throat: Yes tonsils normal, Yes uvula midline and Yes posterior oropharynx abnormal (Erythema) Eyes General: appearance normal, both eyes and all related structures Neck Neck: Yes normal visual inspection Resp Effort & Inspection: normal respiratory effort, able to speak in complete sentences, no respiratory distress, not tachypneic, no tripod positioning and no use of accessory muscles Auscultation: clear to auscultation bilaterally Cardio Rate: regular rate Rhythm: regular rhythm Heart sounds: normal S1 and S2 Skin General skin exam: no rashes or lesions noted Neuro General: patient oriented x3 Extrem General: Yes normal to inspection and Yes no clubbing, cyanosis or edema Assessment & Plan Assessment & Plan (1) Atypical pneumonia: Code(s): J18.9 - Pneumonia, unspecified organism Plan: Patient refused COVID test. Sent Z-Corey to pharmacy as requested, viral versus walking pneumonia Plan See above Medications: New azithromycin For 250 mg dose pack: take 500 mg today (day 1), then 250 mg for 4 days (days 2-5) PO 6 tabs 0RF Coding Level of Care Code Est Pt Level 3 (00031) Diagnoses Atypical pneumonia J18.9
[2023-11-23 08:09] VITALS: BP 118/76; PULSE 72; TEMP 36.8; O2SAT 96; BMI 33.2
== END 2023-11-23 08:39 | disposition home or self-care (01) ==
PROVIDERS: PCP Nurse Practitioner Family; Visit Provider Physician Assistant
DX: J18.9 Pneumonia, unspecified organism (principal)
CPT/HCPCS: 99213

== ENCOUNTER 2023-11-26 07:24 | Outpatient (AMB) | payer OTHER, SELFPAY ==
--- NOTE | 2023-11-26 07:29 | A.OFFVIS_ITS ---
Vital Signs 11/26/23 07:30 Height 6 ft Weight 245 lb BMI 33.2 BP 133/66 Blood Pressure Location Lt brachial Position Sitting Pulse 62 Intake Visit Reasons: abnormal lab test Intake Note: Patient follow up for abnormal lab test. Patient denies any GI issues. Cv Tech Required: No Accompanied by: Self / Same As Patient Allergies No Known Allergies [No Known Allergies*] Allergy (Verified 11/26/23 07:29) Medication List - Last Reconciled 11/26/23 by Tawana Ray MD azithromycin For 250 mg dose pack: take 500 mg today (day 1), then 250 mg for 4 days (days 2-5) PO levothyroxine 100 mcg PO DAILY pantoprazole 40 mg PO BID 90 days rosuvastatin (Crestor) 5 mg PO DAILY HPI HPI abnormal lab test: Details: GI CLINIC VISIT FOR THIS 52-YEAR-OLD MALE FOR FOLLOW-UP OF GERD, ASYMPTOMATIC GALLSTONES AND COLON CANCER SCREENING. ?Reason:US shows large gallstone, fatty liver and pancreas, + pain 01/04/23 Pt had a Lap Brittany by Dr Matos ? CHRONIC ILLNESSES:?psoriasis, vitamin D deficiency, mixed hyperlipidemia, acquired hypothyroidism, GERD without esophagitis, obesity due to excess calories - BMI 31.0-31.9 in adult, RALPH, elevated bilirubin, substernal chest pain, left flank pain - h/o kidney stones 2009, calculus of gallbladder with biliary obstruction, without cholecystitis, PFT- a mild degree of restrictive pulmonary disorder is noted, which may be related to obesity; no obstructive airway disorder, Echo 08/2017 wnl ? LABS IN [facility]: 10/30/2018 normal CBC, ? 11/08/18 BUN 8, creatinine 1.47, bilirubin 1.3, AST 21, ALT 26, alkaline phosphatase 69, albumin 4.8 ? 06/2017: Stool for H pylori antigen was negative. ?IMAGING STUDIES:? 09/22/22 ABD US SHOWED: GALLBLADDER: The gallbladder is physiologically distended. There is a single large 3.5 x 2.4 x 2.9 cm nonmobile gallstone present. No evidence of gallbladder wall thickening or pericholecystic fluid. Garrett's sign is negative. COMMON BILE DUCT: Normal in caliber measuring 0.65 cm in diameter. RIGHT KIDNEY: Normal. No hydronephrosis. No renal calculi or focal parenchymal lesions. The kidney measures 10.1 cm in maximum dimension. FREE FLUID: None. US/US abdomen limited IMPRESSION: 1.? Hepatic steatosis with focal fatty sparing around the gallbladder. 2.? Cholelithiasis without evidence of cholecystitis. ?ENDOSCOPIC STUDIES: 01/22/20 COLONOSCOPY SHOWED: ? One small adenomatous polyp was removed ? Moderate diverticulosis seen in the sigmoid colon ? Moderate hemorrhoids on retroflexed exam. ? Plan:? Patient has an appointment on 03/25/20 in the GI Clinic with Tawana Ray M.D.-. ? Repeat Colonoscopy interval based on path results - in 5 years if polyps are adenomatous and 10 years if polyps are hyperplastic. ? Above findings were reviewed with the patient and colon polyps and diverticulosis handouts were given in the discharge area 01/05/19 EGD SHOWED:? Esophagus: GE junction at 40 cms. Two 1 cms healing erosions. Irregular Z line ? - biopsied to check for Rene s. ? Stomach: Moderate diffuse gastric erythema with prominent gastric folds with ? small amount of heme in the stomach - biopsies were obtained from the gastric ? folds and antrum. Grade 2 flap ? valve on retroflexed examination of the cardia. ? Duodenum: Normal bulb and descending duodenum ? Intervention: Biopsies as noted above ? Impression and Post Procedure Diagnosis: ? Endoscopy Findings: ? ESOPHAGUS: Two small healing erosions and irregular Z line ? STOMACH: Diffuse gastritis with prominent gastric folds ? DUODENUM: Normal ? Plan: ? Await pathology results ? Patient has an appointment on 01/27/19 in the GI Clinic with Tawana Ray M.D ? Above findings were reviewed with the patient and GERD and Gastritis handouts ? were provided in the discharge area. ?BIOPSIES SHOWED: ? A. Stomach, biopsies: Reactive gastropathy with background mild chronic ? inactive inflammation; no Helicobacter organisms seen. ? B. Stomach, gastric fold, biopsies: Oxyntic type mucosa with mild chronic ? inactive inflammation; no Helicobacter organism seen. ? C. Esophagus, distal, biopsies: Esophagogastric junctional mucosa with mild ? chronic inflammation; squamous epithelium within normal limits; negative for ? intestinal metaplasia; negative for dysplasia. TODAY'S VISIT: Pt denies past hx of liver disease or hepatitis. Denies known FH of liver disease Taking azithromycin for bronchitis and will finish tomorrow Pt scheduled for an earlier FU appointment after PCP's message: On 10/11/23 @ 16:18 Miranda Day Wrote To LADONNA Ray Hi [place] patient w/ Dr Ray He has some abnormal labs ferritin, bili, LDH (see September labs). I want him to be evaluated before his March appt Please reach out to patient directly. Or myself should you have questions. Thanks! Miranda GB surgery went well. RUQ pain has resolved since the surgery Denies heartburn or dysphagia PAST VISIT: Has been having intermittent episodes of sharp 6-7/10 RUQ pain since the end of August. First episode 20 min after eating dinner. Pain started in the RUQ and radiated to the epigastrium. Pain became worse on moving. 2nd episode woke him up from sleep and was associated with nausea and cold sweats.Has not had additional episodes since then Pt denies vomiting or fever Has been taking VItamin D every 2-3 days Taking Pantoprazole once a day and takes a 2nd dose prn He was sick with COVID over Thanksgiving despite vaccination. Denies abdominal pain or GERD symptoms Rare breakthrough symptoms related to diet. Takes Pantoprazole at night and sometimes during the day for breakthrough symptoms. Mother had GB removed a few weeks ago. Not eager to have GB surgery yet. Doing good - no problems Stress test at [facility] [place] and whole body US were good Heartburn is well controlled with the pantoprazole 40 mg twice daily. Had a physical exam 3 weeks ago. Noted burning abdominal pain on the left side which is bouncing all over his body - epigastric/RUQ/LUQ and lower chest shoulders. Pain can vary between burning and stinging. Some days are good and somedays are not so good. Pain resolves at night and able to sleep without any problems. Pain can last all day on some days. Can have intermittent throat irritation Sometimes improves after eating. At times, he does not feel good after eating. His weight has been stable at 232 lb - advised weight reduction of 10-15 lb due to fatty liver ? Stopped Zantac and started having some heartburn. ? Using Omeprazole for the past 4 days and appears to be helping ? Denies dysphagia. ? Finished with antbiotics for a cold followed by cough. ? 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 ? Denies recent change in bowel habits, black stools or rectal bleeding. ? Denies known FH of colon polyps or colon cancer. ? Maternal uncle recently diagnosed with abdominal/liver cancer - primary site is unclear. ? Denies pas issues with anesthesia. ? Denies major cardiac or pulmonary problems PFSH Medical History History of PFTs Diverticulosis Hematoma GERD (gastroesophageal reflux disease) Renal calculi Fatty liver Thyroid disease Elevated cholesterol Surgical History Hx laparoscopic cholecystectomy (01/04/23) History of colonoscopy History of evacuation of hematoma History of esophagogastroduodenoscopy (EGD) Family History Father CAD (coronary artery disease) Mother Hx of colon cancer, stage IV Social History Household Members: Spouse and Children Both parents involved: No Caregiver staying overnight: No Housing: House Are you a primary hospice patient care secretary to a significant other at home: No Do you presently have visiting nurse or other home services: No 75 years or older and lives alone: No Alcohol intake: current Alcohol intake frequency: holidays/special occasions only Patient Tobacco Use Status: Never used Tobacco e-Cigarette/Vaping Use: Never Used Second Hand Smoke Exposure: No service: No Current occupational status: employed 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 Current occupational exposures/hazards: Yes Sexual orientation: Unable to collect Gender identity: Unable to collect Cognitive needs: No Hearing needs: No Vision needs: No Review of Systems Const All systems reviewed & are unremarkable except as noted in HPI and below Physical Exam Vital Signs: Last Vital Signs Pulse 62 11/26/23 07:30 BP 133/66 11/26/23 07:30 BMI result Body Mass Index 33.2 Const General: healthy appearing and no acute distress Nutritional Appearance: obese Orientation/consciousness: patient oriented x3 Limitations: no limitations HEENT Head: Yes normal to inspection Ears: hearing grossly normal bilaterally Eyes Sclerae: sclerae normal Pupils: Equal, round and reactive pupils present Neck Neck: Yes normal visual inspection Chest Chest palpation & inspection: normal inspection of the chest Resp Effort & Inspection: normal respiratory effort Auscultation: clear to auscultation bilaterally Cardio Palpation: normal PMI Rate: regular rate Rhythm: regular rhythm Heart sounds: S1 normal heart sound present, S2 normal heart sound present and no murmurs GI Palpation (GI): Soft to palpation, nontender and No hepatosplenomegaly present Auscultation: normal bowel sounds Rectal Exam - Male: Yes deferred Skin General skin exam: no rashes or lesions noted Neuro General: patient oriented x3, gait normal and moves all extremities Cranial nerves: Yes Equal, round and reactive pupils present Psych Appearance: grossly normal Mental Status: mental status grossly normal Assessment & Plan Assessment & Plan (1) Diverticulosis: Code(s): K57.90 - Diverticulosis of intestine, part unspecified, without perforation or abscess without bleeding Category: Medical (2) GERD without esophagitis: Comment: Continue Pantoprazole 40 mg twice daily Code(s): K21.9 - Gastro-esophageal reflux disease without esophagitis Category: Medical (3) History of colon polyps: Comment: 01/22 one small tubular adenoma was removed during colonoscopy. Repeat colonoscopy is advised in 5 years (due in 01/27) Code(s): Z86.010 - Personal history of colonic polyps Category: Medical (4) NAFL (nonalcoholic fatty liver): Code(s): K76.0 - Fatty (change of) liver, not elsewhere classified Category: Medical (5) Elevated LFTs: Code(s): R79.89 - Other specified abnormal findings of blood chemistry Category: Medical Plan 52 YM with psoriasis, vitamin D deficiency, mixed hyperlipidemia, acquired hypothyroidism, GERD without esophagitis, obesity due to excess calories - BMI 32.3 in adult, RALPH, elevated bilirubin, substernal chest pain, left flank pain - h/o kidney stones 2009, calculus of gallbladder without cholecystitis, Echo 08/2017 wnl. Patient is followed in GI for noncardiac chest pain associated with symptoms of heartburn, fatty liver and possible fat in the pancreas and asymptomatic gallstone. Noncardiac chest pain is likely related to esophageal spasm associated with the GERD. Symptoms improved with ranitidine 150 mg at bedtime. He noted recurrent heartburn on stopping ranitidine since it was not covered by his insurance. Upper endoscopy showed gastritis and two 1 cms healing esophageal erosions and no Rene's. Omeprazole 20 mg daily was prescribed and patient has noted breakthrough symptoms. Fatty liver with suspected fat in the pancreas likely related to obesity. Recent LFTs were normal. Patient was advised to work on weight reduction. Patient was advised to increase pantoprazole to 40? mg twice daily and decrease vitamin-D to every other day due to high levels in the past 05/09/20 Pt called and abdominal US results were reviewed with him US reviewed with radiology - gallstone size is 2.5 cms (increased from 1.75 cms in 2019. He may need a prophylactic Lap Brittany if gallstone is > 3 cms due to increased risk of GB cancer associated with large gallstones. Pt stated he is feeling better - has been trying to take PPI twice a day which has helped (sometimes he forgets to take it) 09/2021 ABD US SHOWED: Gallstones. Echogenic liver probably representing fatty infiltration.? Largest gallstone is almost 3 cms. 10/09/22 Intermittent episodes of RUQ pain and gallstone size increased to 3.5 cms 01/04/23 Pt had a Lap Brittany by Dr Matos 03/11/23 Abd pain resolved after Lap brittany 11/26/23 Pt seen for evaluation of elevated TB, ferritin and LDH. Pt denies past or family hx of liver disaese. 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 Mild elevation of ALT, ferritin, and LDH likely due to steatohepatitis. I will check iron studies, hepatitis serologies, genetic testing for hemochromatosis and abd US with elastography to rule out cirrhosis FU appt in 4 months - pt has an appt on 03/23/24 Orders: Orders Lactate Dehydrogenase Today R79.89 - Other specified abnormal findings of blood chemistry Liver Panel Today R79.89 - Other specified abnormal findings of blood chemistry Hepatitis B Core Antibody Today R79.89 - Other specified abnormal findings of blood chemistry Hepatitis A IgG Today R79.89 - Other specified abnormal findings of blood chemistry IRON PROFILE Today R79.89 - Other specified abnormal findings of blood immunochemist ry DNA Analysis Hemochromatosis Today R79.89 - Other specified abnormal findings of blood chemistry Prothrombin Time INR Today R79.89 - Other specified abnormal findings of blood chemistry Liver Fibrosis Pnl Today R79.89 - Other specified abnormal findings of blood chemistry US abdomen marino w elastography Today R79.89 - Other specified abnormal findings of blood chemistry Hepatitis B Surface Antibody Today R79.89 - Other specified abnormal findings of blood chemistry Hepatitis B Surface Antigen Today R79.89 - Other specified abnormal findings of blood chemistry Hepatitis C Antibody Today R79.89 - Other specified abnormal findings of blood chemistry Coding Level of Care Code Est Pt Level 4 (13691) Diagnoses Diverticulosis K57.90 GERD without esophagitis K21.9 History of colon polyps Z86.010 NAFL (nonalcoholic fatty liver) K76.0 Elevated LFTs R79.89 Time Spent (min) 21
[2023-11-26 07:30] VITALS: BP 133/66; PULSE 62; BMI 33.2
== END 2023-11-26 08:43 | disposition home or self-care (01) ==
PROVIDERS: PCP Nurse Practitioner Family; Visit Provider Internal Medicine Gastroenterology
DX: K57.90 Diverticulosis of intestine, part unspecified, without perforation or abscess without bleeding (principal); K21.9 Gastro-esophageal reflux disease without esophagitis; Z86.010 Personal history of colon polyps; K76.0 Fatty (change of) liver, not elsewhere classified; R79.89 Other specified abnormal findings of blood chemistry
CPT/HCPCS: 99214

== ENCOUNTER → 2023-11-26 07:24 | Outpatient (BNVA) | payer OTHER, SELFPAY | PROVIDERS: PCP Nurse Practitioner Family; Visit Provider Internal Medicine Gastroenterology ==

== ENCOUNTER 2023-12-22 07:54 | Outpatient (REF) | payer OTHER, SELFPAY ==
--- NOTE | ~2023-12-22 | US_ITS ---
EXAMINATION: US ABDOMEN LIMITED WITH LIVER ELASTOGRAPHY CLINICAL INFORMATION: Normal blood chemistry; question cirrhosis. COMPARISON: None available. TECHNIQUE: Real-time imaging of the abdominal viscera. Noninvasive ultrasound liver fibrosis assessment is performed using Ankur ElastPQ point quantification shear wave elastography (pSWE) with a 5 MHz transducer. Multiple elastography samples are obtained. FINDINGS: PANCREAS: Normal. The visualized pancreatic head and body are normal in appearance. The remainder of the pancreas is obscured from visualization by the overlying bowel gas. LIVER: The liver demonstrates normal size, contour and increased echogenicity. No focal lesion or intrahepatic biliary duct dilatation. The right lobe measures 14.4 cm in length. The left lobe measures 9.8 cm in length. Within the right hepatic lobe, a 1.4 cm benign, simple cyst is seen. Within the left hepatic lobe, a 0.9 cm benign, simple cyst seen. These require no imaging follow-up. Shear wave elastography provides a median stiffness of 1.33 m/s (reference: normal median stiffness is 0.81 - 1.22 m/s). The IQR/median stiffness to assess sampling precision is 0.18 (reference: optimal IQR/median stiffness is under 0.3). GALLBLADDER: Surgically absent. COMMON BILE DUCT: Normal in caliber measuring 0.7 cm in diameter. RIGHT KIDNEY: Normal. No hydronephrosis. No renal calculi or focal parenchymal solid lesions. At the upper pole, a 1.3 cm benign, simple cyst is seen, which requires no imaging follow-up. The kidney measures 10.9 cm in maximum dimension. FREE FLUID: None. US/US abdomen marino w elastography IMPRESSION: 1. There is generalized increase in hepatic echotexture, consistent with fatty infiltration or hepatocellular disease. Please correlate clinically. No focal hepatic mass or intrahepatic biliary dilatation is seen. 2. Elastography: Liver elastography measurements are consistent with a minimal risk for clinically significant liver fibrosis (METAVIR Stage F0-F1). 3. The gallbladder is surgically absent. Electronically signed by: Srikanth Bliss MD 12/23/2023 12:28 PM EDT
[2023-12-22 09:49] LABS: Prothrombin Time 11.6 SEC (11.1-13.3)
[2023-12-22 10:35] LABS: HBS Num1 37.21 mIU/mL (0-7.99); HBc Num1 0.11 S/CO (0.00-0.79); HBsAGNum1 0.26 S/CO (0.00-0.99); Hepatitis B Core Antibody Nonreactive (Nonreactive); Hepatitis B Surface Antigen Negative (Negative); ~HepC Num1 0.09 S/CO (0.00-0.79); ~Hepatitis B Surface Antibody REACTIVE (Nonreactive); ~Hepatitis C Antibody Nonreactive (Nonreactive)
[2023-12-22 10:40] LABS: Hepatitis A Antibody IgG Nonreactive (Nonreactive); ~Hepatitis A Antibody IgG 0.21 S/CO (0.00-0.99)
[2023-12-22 10:59] LABS: Alanine Aminotransferase 33 U/L (0-40); Albumin Level 4.6 g/dL (3.5-5.0); Alkaline Phosphatase 69 U/L (39-117); Aspartate Amino Transferase 24 U/L (5-37); Bilirubin Direct 0.5 mg/dL (0.0-0.5); Bilirubin Total 1.8 mg/dL (0.0-1.0); Iron 76 mcg/dL (45-160); Percent Iron Saturation 26 % (15-50); Total Iron Binding Capacity 290 mcg/dL (228-428); Total Protein 7.5 g/dL (6.5-8.0); Unsaturated Iron Binding 214 ug/dL
[2023-12-22 12:40] LABS: Lactate Dehydrogenase 200 U/L (118-273)
[2023-12-30 00:38] LABS: FIB-ALT 32 U/L (9-46); FIB-Alpha-2-Macroglobulin 135 mg/dL (106-279); FIB-Apolipoprotein A1 176 mg/dL (94-176); FIB-GGT 40 U/L (3-95); FIB-Haptoglobin 103 mg/dL (43-212); FIB-Total Bilirubin 1.6 mg/dL (0.2-1.2); Liver Fibrosis Score 0.24; Liver Fibrosis Stage F0-F1; Nec Inflam Act Grade A0; Nec Inflam Act Score 0.15
== END 2023-12-22 07:55 | disposition home or self-care (01) ==
LOC: HO.US 07:54
PROVIDERS: PCP Nurse Practitioner Family; Visit Provider Internal Medicine Gastroenterology
DX: R79.89 Other specified abnormal findings of blood chemistry (principal)
CPT/HCPCS: 36415; 76705; 76981; 80076; 81256; 81596; 83540; 83615; 85610; 86704; 86706; 86708; 86803; 87340

== ENCOUNTER 2024-03-23 11:15 | Outpatient (AMB) | payer OTHER, SELFPAY ==
--- OUTSIDE RECORDS SUMMARY | 2024-03-23 11:17 | XMS_ITS ---
Author Organization [facility] Address [address] [address] Care Team Providers Care Marsh Buggy Operator Name Role Phone Amy Ruben Primary Care Provider UnavailFRANCY Pacheco Unavailable [phone] ALLERGIES No Known Allergies REASON FOR VISIT 4wk MEDICATIONS Medication SIG (Take, Route, Frequency, Duration) Notes Start Date End Date Status Rosuvastatin Calcium 5 MG 1 tablet Orall y Once a day Active Diclofenac Sodium 1 % as directed House Father ally twice daily for 30 days 10/06/2023 Active Pantoprazole Sodium 40 MG 1 tablet Orall y Once a day Active Levothyroxine Sodium 100 MCG 1 tablet in the morning on an empty stomach Orally Once a day Active VITAL SIGNS Weight 242.7 lbs 11/15/2023 Height 6ft in 11/15/2023 BMI 32.91 kg/m2 11/15/2023 Heart Rate 60 /min 11/15/2023 Blood pressure systolic 138 mm Hg 11/15/19 24 Blood pressure diastolic 80 mm Hg 024 Temperature 97.2 degrees Fahrenheit 11/15/19 24 Respiratory Rate 16 /min 11/15/2023 Encounters Encounter Location Date Provider Diagnosis [facility] [address] [address] 11/15/2023 FRANCY GRAY Plantar fasciitis of left foot M72.2 ; Equinus contracture of left ankle M24.572 ; Pain in right foot M79.671 and Pain in left foot M79.672 ASSESSMENTS Encounter Date Diagnosis Assessment Notes Treatment Notes Treatment Clinical Notes Section Notes 11/15/2023 Plantar fasciitis of left foot (ICD-10 - M72.2) He has significant improvement of his foot pain compared to his previous visit. We discussed that he has no active tendinitis or joint pain on the right side. I explained to the patient that his right foot pain is likely compensation related. I explained the left foot pain is plantar fasciitis with equinus. We discussed that the plantar fascia and the Achilles work like a lin system and one will often tighten the other. Discussed the pathology of plantar fasciitis, what that means and how it affects the patient's ADL. Reviewed stretching and icing exercises with the patient, handout dispensed, and patient instructed to perform twice daily. Recommended starting a course of NSAIDs with the patient, RX diclofenac gel to apply to the left heel twice daily. Discussed proper shoe gear with the patient and recommended over the counter inserts, list dispensed. Since he has noticed improvement with the current regiment, I recommended he continue doing this for another 6 weeks. We discussed if no improvement, next steps can be a steroid injection, physical therapy, ECSWT, or PRP injections. The patient is in agreement with this plan. 11/15/2023 Equinus contracture of left ankle (ICD-10 - M24.572) 11/15/2023 Pain in right foot (ICD-10 - M79.671) 11/15/2023 Pain in left foot (ICD-10 - M79.672) PLAN OF TREATMENT Treatment Notes Assessment Notes Plantar fasciitis of left foot He has significant improvement of his foot pain compared to his previous visit. We discussed that he has no active tendinitis or joint pain on the right side. I explained to the patient that his right foot pain is likely compensation related. I explained the left foot pain is plantar fasciitis with equinus. We discussed that the plantar fascia and the Achilles work like a lin system and one will often tighten the other. Discussed the pathology of plantar fasciitis, what that means and how it affects the patient's ADL. Reviewed stretching and icing exercises with the patient, handout dispensed, and patient instructed to perform twice daily. Recommended starting a course of NSAIDs with the patient, RX diclofenac gel to apply to the left heel twice daily. Discussed proper shoe gear with the patient and recommended over the counter inserts, list dispensed. Since he has noticed improvement with the current regiment, I recommended he continue doing this for another 6 weeks. We discussed if no improvement, next steps can be a steroid injection, physical therapy, ECSWT, or PRP injections. The patient is in agreement with this plan. Next Appt Details Follow Up: 6 Weeks, Reason: Progress Notes * Lisandro MORENODOB:1970 (52 yo M)Acc No.[id number]:11/15/2023 Progress Note Patient:??Lisandro MORENO Provider:??Francy Gray DPM :1970?Age:52 Y?Sex:Waqar le Date:11/15/2023 Address: [address], [place], [id number] Pcp:Ruben Reyes Subjective: * Chief Complaints: * ?4wk * HPI: ?Constitutional:? This 52 y/o male returns to my office as a follow-up to bilateral foot pain. He has been stretching the feet. He also has been avoiding barefoot walking. He used the diclofenac gel on his feet for two weeks before he ran out. He states overall, his feet are much better. He still feels some twinges of pain on the left side. He also notes some discomfort in the left foot at the end of the day. He states he has not been stretching every day, but he notices a difference. He has no other foot complaints this visit. * ROS:?GENERAL: Pt denies nausea, fever, vomiting, chills, or shortness of breath. Pt in NAD. ALLERGY: patient denies any new allergy HEME/ONC: patient denies any bleeding or clotting disorders CARDIOLOGY: pt denies chest pain, palpitations LUNGS: pt denies shortness of breath ABDOMEN: patient denies any bloating, abdominal pain, or swelling MUSCULOSKELETAL: See HPI, patient is also having some left knee soreness. SKIN: see HPI, otherwise no lesions, rash or itching NEURO: No persistent headache, weakness or numbness PSYCH: patient denies any current anxiety or depression The remainder of the review of systems is noncontributory. * Medical History:?? * Surgical History:??laparosco pic cholecystectomy history of evacuation of hematoma history of esophagogastroduodenoscopy colonoscopy * Hospitalization/Major Diagno stic Procedure:??Denies Past Hospitalization * Family History:??Father: cor onary artery disease, hypertension.??Mother: hypertension, diabetes, kidney disease.??Siblings: sister- diabetes.?? 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 * Medications:??TakingRosuvast atin Calcium 5 MG Tablet 1 tablet Orally Once a day Pantoprazole Sodium 40 MG Tablet Delayed Release 1 tablet Orally Once a day Levothyroxine Sodium 100 MCG Tablet 1 tablet in the morning on an empty stomach Orally Once a day Diclofenac Sodium 1 % Gel as directed Externally twice daily Medication List reviewed and reconciled with the patientTaking Rosuvastatin Calcium 5 MG Tablet 1 tablet Orally Once a day Taking Pantoprazole Sodium 40 MG Tablet Delayed Release 1 tablet Orally Once a day Taking Levothyroxine Sodium 100 MCG Tablet 1 tablet in the morning on an empty stomach Orally Once a day Taking Diclofenac Sodium 1 % Gel as directed Externally twice daily Medication List reviewed and reconciled with the patient * Allergies:??N.K.D.A.no[Aller gies Verified] Objective: * Vitals:??Wt:242.7lbs, Ht: 6f t, BMI:32.91Index, HR:60/min, BP:138/80mm Hg, Temp:97.2F, RR:16/min, Ht-cm: 182.88, Wt-k.09 kg. * Examination: ?General Examination: ?GENERAL: Patient appears well nourished, with NAD. ?VASCULAR: Dorsalis pedis pulses are 2/4 bilaterally and Posterior tibial pulses are 2/4 bilaterally. Capillary filling time within normal limits the digits. No pallor on elevation or rubor on dependency. Positive hair growth. No varicosities. Foot temperature within normal limits. ?NEUROLOGICAL: Sharp/dull sensation intact bilaterally, position sense intact bilaterally to the tibial tuberosity. ?ORTHOPEDIC: Good muscle strength 4+/5 of all flexors and extensors. Dorsi flexion of ankle , 0 degrees, plantar flexion WNL. No muscle atrophy. No pain on palpation of the distal right Achilles, no pain on right heel compression, no pain on palpation of the right plantar foot, no pain on ROM of the right foot. Tenderness on palpation of the left distal Achilles, no tenderness on compression of the left heel, tenderness on palpation of the plantar left heel and along the plantar medial left arch. ?DERMATOLOGICAL: No masses, openings, or skin lesions noted. Normal skin temperature, normal skin turgor. ?BIOMECHANICS: STJ ROM WNL, MTJ ROM limited, 1st MPJ ROM limited. On weight-bearing, rectus foot ?SHOES: sandals. Assessment: * Assessment: 1.??Plantar fasciitis of lef t foot - M72.2 (Primary)??2.??Equinus contracture of left ankle - M24.572??3.??Pain in right foot - M79.671??4.??Pain in left foot - M79.672?? Plan: * Treatment: * Procedure Codes:?? * Follow Up:??6 Weeks * Billing Information: * Visit Code:?? 77733 Office Visit, Est Pt., Level 3. * Procedure Codes:?? * Sign off status: Completed true * Provider:??Francy Gray DPM Date: ??11/15/2023 History and Physical Notes * HPI (History of Present Illness) Category Sub-Category Detail Notes Category Not es Constitutional This 52 y/o m kimberly returns to my office as a follow-up to bilateral foot pain. He has been stretching the feet. He also has been avoiding barefoot walking. He used the diclofenac gel on his feet for two weeks before he ran out. He states overall, his feet are much better. He still feels some twinges of pain on the left side. He also notes some discomfort in the left foot at the end of the day. He states he has not been stretching every day, but he notices a difference. He has no other foot complaints this visit. Examination Category Sub-Category Detail Notes Category Not es General Examination GENERAL: Patient appears well nourished, with NAD. VASCULAR: Dorsalis pedis pulses are 2/4 bilaterally and Posterior tibial pulses are 2/4 bilaterally. Capillary filling time within normal limits the digits. No pallor on elevation or rubor on dependency. Positive hair growth. No varicosities. Foot temperature within normal limits. NEUROLOGICAL: Sharp/dull sensation intact bilaterally, position sense intact bilaterally to the tibial tuberosity. ORTHOPEDIC: Good muscle strength 4+/5 of all flexors and extensors. Dorsi flexion of ankle , 0 degrees, plantar flexion WNL. No muscle atrophy. No pain on palpation of the distal right Achilles, no pain on right heel compression, no pain on palpation of the right plantar foot, no pain on ROM of the right foot. Tenderness on palpation of the left distal Achilles, no tenderness on compression of the left heel, tenderness on palpation of the plantar left heel and along the plantar medial left arch. DERMATOLOGICAL: No masses, openings, or skin lesions noted. Normal skin temperature, normal skin turgor. BIOMECHANICS: STJ ROM WNL, MTJ ROM limited, 1st MPJ ROM limited. On weight-bearing, rectus foot SHOES: sandals
--- OUTSIDE RECORDS SUMMARY | 2024-03-23 11:17 | XMS_ITS ---
Author Organization [facility] Address [address] [address] Care Team Providers Care Nutritional Services Director Name Role Phone Ruben Reyes Primary Care Provider Unavailab FRANCY Padilla [phone] REASON FOR VISIT 6wk Encounters Encounter Location Date Provider Diagnosis [facility] [address] [address] 12/22/2023 FRANCY LUNA PLAN OF TREATMENT No Information Progress Notes * Lisandro MORENODOB:1970 (53 yo M)Acc No.[id number]:12/22/2023 Progress Note Patient:??Lisandro MORENO Provider:??Francy Luna DPM :1970?Age:52 Y?Sex:Waqar beltran Date:12/22/2023 Address: [address] [address] [id number] Pcp:Ruben Reyes Subjective: * Chief Complaints: * ?1. 6wk. * Medical History:?? Objective: Assessment: Plan: * Treatment: * Billing Information: * Visit Code:?? * Procedure Codes:?? * Sign off status: Pending * Provider:??Francy Luna DPM Date: ??12/22/2023
--- OUTSIDE RECORDS SUMMARY | 2024-03-23 11:18 | XMS_ITS | Patient Health Record ---
Author Organization [facility] Address [address] [address] Care Team Providers Care Purchasing Supervisor Name Role Phone Ruben Reyes Primary Care Provider BITA Woodward Unavailable [phone] ALLERGIES No Known Allergies REASON FOR REFERRAL No Information MEDICATIONS Medication SIG (Take, Route, Frequency, Duration) Notes Start Date End Date Status Rosuvastatin Calcium 5 MG 1 tablet Orall y Once a day Active Diclofenac Sodium 1 % as directed Dragger Out ally twice daily for 30 days 10/06/2023 Active Pantoprazole Sodium 40 MG 1 tablet Orall y Once a day Active Levothyroxine Sodium 100 MCG 1 tablet in the morning on an empty stomach Orally Once a day Active PROBLEMS Problem Type ICD Code Onset Dates Problem Status W/U Status Risk SNOMED Code Notes Problem Equinus contracture of left ankle (M24.572) Active confirmed [id number] VITAL SIGNS Heart Rate 60 /min 11/15/2023 Temperature 97.2 degrees Fahrenheit 11/15/2023 Respiratory Rate 16 /min 11/15/2023 Blood pressure diastolic 80 mm Hg 11/15/2023 Height 6ft in 11/15/2023 Blood pressure systolic 138 mm Hg 11/15/2023 Weight 242.7 lbs 11/15/2023 BMI 32.91 kg/m2 11/15/2023 Encounters Encounter Location Date Provider Diagnosis [facility] [address] [address] 12/22/2023 BITA LUNA [facility] [address] [address] 10/06/2023 BITA LUNA Plantar fasciitis of left foot M72.2 ; Equinus contracture of left ankle M24.572 ; Pain in right foot M79.671 and Pain in left foot M79.672 [facility] [address] [facility] [address] [place] [address] 11/15/2023 BITA LUNA Plantar fasciitis of left foot M72.2 ; Equinus contracture of left ankle M24.572 ; Pain in right foot M79.671 and Pain in left foot M79.672 ASSESSMENTS Encounter Date Diagnosis Assessment Notes Treatment Notes Treatment Clinical Notes Section Notes 10/06/2023 Plantar fasciitis of left foot (ICD-10 - M72.2) This is an outpatient visit for evaluation and management of a new patient, which required appropriate review of pertinent medical history, review of any previous imaging, review of all previous records, and examination and decision-making. Time was 45 minutes spent in review of all these facets including face to face discussion with the patient regarding my findings and in discussion of a current and future treatment plan. I reviewed the results of the x-rays with the patient. 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 This is not the cause of his pain and is an incidental finding. We discussed that he has no active [...] recommended over the counter inserts, list dispensed. I will have the patient return in 4 weeks for a re-evaluation. We discussed if no improvement, next steps can be a steroid injection, physical therapy, ECSWT, or PRP injections. The patient is in agreement with this plan. 10/06/2023 Equinus contracture of left ankle (ICD-10 - M24.572) 11/15/2023 Plantar fasciitis of left foot (ICD-10 [...] contracture of left ankle (ICD-10 - M24.572) 10/06/2023 Pain in right foot (ICD-10 - M79.671) 10/06/2023 Pain in left foot (ICD-10 - M79.672) 11/15/2023 Pain in right foot (ICD-10 - M79.671) 11/15/2023 Pain in left foot (ICD-10 - M79.672) PLAN OF TREATMENT Pending Test Test Name Order Date X ray : Foot, left 3v 10/06/2023 X ray : Foot, right 3v 10/06/2023 Insurance Providers Payer Name Payer Address Payer Phone Subscriber Number Group Number Insured Name Patient Relationship to Insured Coverage Start Date Coverage End Date [employer] [address] [place] [phone] [id number] Lisandro Paige Self - patient is the insured MEDICAL (GENERAL) HISTORY Medical History History ICD Code history of PFT's diverticulosis hematoma gastroesophageal reflux disease (GERD) renal calculi fatty liver thyroid disease elevated cholesterol bilateral plantar fasciitis vitamin D deficiency obesity nonalcoholic fatty liver elevated serum creatinine elevated bilirubin hypothyroidism hyperlipidemia psoriasis + COVID 2021 COVID vaccinated X 2 (Pfizer) Surgical History Surgery Date(Month/Year) laparoscopic cholecystectomy history of evacuation of hematoma history of esophagogastroduodenoscopy colonoscopy
--- OUTSIDE RECORDS SUMMARY | 2024-03-23 11:18 | XMS_ITS ---
Author Organization [facility] Address [address] [address] Care Team Providers Care Port Patrol Officer Name Role Phone Amy Ruben Primary Care Provider UnavailFRANCY Pacheco Unavailable [phone] ALLERGIES No Known Allergies REASON FOR VISIT PCP referral for plantar fasciitis MEDICATIONS Medication SIG (Take, Route, Frequency, Duration) Notes Start Date End Date Status Rosuvastatin Calcium 5 MG 1 tablet Orall y Once a day Active Diclofenac Sodium 1 % as directed Coroner ally twice daily for 30 days 10/06/2023 Active Pantoprazole Sodium 40 MG 1 tablet Orall y Once a day Active Levothyroxine Sodium 100 MCG 1 tablet in the morning on an empty stomach Orally Once a day Active PROBLEMS Problem Type ICD Code Onset Dates Problem Status W/U Status Risk SNOMED Code Notes Problem Equinus contracture of left ankle (M24.572) Active confirmed [id number] VITAL SIGNS Weight 240.6 lbs 10/06/2023 Height 6ft in 10/06/2023 BMI 32.63 kg/m2 10/06/2023 Heart Rate 74 /min 10/06/2023 Temperature 97.4 degrees Fahrenheit 10/06/19 24 Respiratory Rate 16 /min 10/06/2023 Encounters Encounter Location Date Provider Diagnosis [facility] [address] [address] 10/06/2023 FRANCY GRAY Plantar fasciitis of left foot [...] foot (ICD-10 - M79.672) PLAN OF TREATMENT Medication Medication Name Sig Start Date Stop Date Notes Diclofenac Sodium 1 % as directed Coroner ally twice daily for 30 days 10/06/2023 Treatment Notes Assessment Notes Plantar fasciitis of left foot This is an outpatient visit for evaluation [...] patient is in agreement with this plan. Pending Test Test Name Order Date X ray : Foot, left 3v 10/06/2023 X ray : Foot, right 3v 10/06/2023 Next Appt Details Follow Up: 4 Weeks, Reason: Progress Notes * Lisandro MORENODOB:1970 (52 yo M)Acc No.[id number]:10/06/2023 Consult note Patient:??Lisandro MORENO Provider:??Francy Gray DPM :1970?Age:52 Y?Sex:Waqar beltran Date:10/06/2023 Address: [address], [place], [id number] Pcp:Ruben Reyes Subjective: * Chief Complaints: * ?PCP referral for plant ar fasciitis * HPI: ?Constitutional:? This 52 y/o male presents to my office with a complaint of bilateral foot pain, left worse than the right. He states last summer, he was participating in exercises when he injured the left big toe. He states the left big toe joint was sore for about 3-4 months. This injury did heal, but about 2 months later, he started to develop pain in the heel and the arch of the left foot. He states the pain can be sharp and stabbing, but also aching and throbbing. He states the pain is the worst when he first gets up in the morning and at the end of the day. He states the right foot is usually sore at the end of the day. He states at times the pain is in his heel, the arch, and the toes. He also has noticed some soreness to the left knee. He takes Tylenol as needed for pain. He has been stretching and icing which does help, but he admits that he has not been doing this consistently. He has a history of psoriasis but denies any flare-ups recently. He has no other foot complaints this visit. Allergies and medical history reviewed. 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 * Medications:??TakingRosuvast atin Calcium 5 MG Tablet 1 tablet Orally Once a day Pantoprazole Sodium 40 MG Tablet Delayed Release 1 tablet Orally Once a day Levothyroxine Sodium 100 MCG Tablet 1 tablet in the morning on an empty stomach Orally Once a day Medication List reviewed and reconciled with the patientTaking Rosuvastatin Calcium 5 MG Tablet 1 tablet Orally Once a day Taking Pantoprazole Sodium 40 MG Tablet Delayed Release 1 tablet Orally Once a day Taking Levothyroxine Sodium 100 MCG Tablet 1 tablet in the morning on an empty stomach Orally Once a day Medication List reviewed and reconciled with the patient * Allergies:??N.K.D.A.no[Aller gies Verified] Objective: * Vitals:??Wt:240.6lbs, Ht: 6f t, BMI:32.63Index, HR:74/min, Temp:97.4F, RR:16/min, Ht-cm: 182.88, Wt-k.13 kg. * Examination: ?General Examination: ?GENERAL: Patient [...] tenderness on compression of the left heel, pain on palpation of the plantar left heel and along the plantar medial left arch. ?DERMATOLOGICAL: No masses, openings, or skin lesions noted. Normal skin temperature, normal skin turgor. ?BIOMECHANICS: STJ ROM WNL, MTJ ROM limited, 1st MPJ ROM limited. On weight-bearing, rectus foot ?SHOES: sandals. Therapeutic Interventions: Assessment: * Assessment: 1.??Plantar fasciitis of lef t foot - M72.2 (Primary)??2.??Equinus contracture of left ankle - M24.572??3.??Pain in right foot - M79.671??4.??Pain in left foot - M79.672?? Plan: * Treatment: Notes: This is an outpatient visit for evaluation and management of a new patient, which required appropriate review of pertinent medical history, review of any previous imaging, review of all previous records, and examination and decision-making. Time was 45 minutes spent in review of all these facets including face to face discussion with the patient regarding my findings and in discussion of acurrent and future treatment plan. I reviewed the [...] patient, RX diclofenac gel to apply to theleft heel twice daily. Discussed proper shoe gear with the patient and recommended over the counterinserts, list dispensed. I will have the patient return in 4 weeks for a re-evaluation. We discussed if no improvement, next steps can be a steroid injection, physical therapy, ECSWT, or PRP injections. The patient is in agreement with this plan.?2.??Pain in right foot?Imaging: X ray : Foot, right 3v* RIGHT FOOT WEIGHT BEARING X- RAYS 3 VIEWS obtained during today's visit. On the AP view, subchondral cystic changes noted within the heads of the lesser metatarsals. Joint space narrowing seen at the proximal interphalangeal joints of the lesser toes. On the lateral view, an os trigonum is noted posterior to the subtalar joint. Cystic changes seen in the midtarsal joints on the lateral view. Small osteophyte noted at the plantar calcaneus. No fracture noted. 3.??Pain in left foot?Imaging: X ray : Foot, left 3v* LEFT FOOT WEIGHT BEARING X-R AYS 3 VIEWS obtained during today's visit. On the AP view, subchondral cystic changes noted within the heads of the lesser metatarsals. Joint space narrowing seen at the proximal interphalangeal joints of the lesser toes. On the lateral view, an os trigonum is noted posterior to the subtalar joint. Small osteophyte noted at the plantar calcaneus. No fracture noted. 4.??Others?? Start Diclofenac Sodium Gel, 1 %, as directed, Externally, twice daily, 30 days, 60, Refills 1.? * Procedure Codes:??79308 X-RA Y EXAM OF FOOT 3 Views, Units: 2.00 , Modifiers: [place] 59994 X-RAY EXAM OF FOOT 3 Views, Modifiers: RT * Follow Up:??4 Weeks * Billing Information: * Visit Code:?? 06751 Office Visit, New Pt., Level 3. * Procedure Codes:?? 85465 X-RAY EXAM OF FOOT 3 Views. Units: 2.00. Modifiers: [place] 78827 X-RAY EXAM OF FOOT 3 Views. Modifiers: RT * Sign off status: Completed true * Provider:??Francy Gray DPM Date: ??10/06/2023 History and Physical Notes * HPI (History of Present Illness) Category Sub-Category Detail Notes Category Not es Constitutional This 52 y/o m kimberly presents to my office with a complaint of bilateral foot pain, left worse than the right. He states last summer, he was participating in exercises when he injured the left big toe. He states the left big toe joint was sore for about 3-4 months. This injury did heal, but about 2 months later, he started to develop pain in the heel and the arch of the left foot. He states the pain can be sharp and stabbing, but also aching and throbbing. He states the pain is the worst when he first gets up in the morning and at the end of the day. He states the right foot is usually sore at the end of the day. He states at times the pain is in his heel, the arch, and the toes. He also has noticed some soreness to the left knee. He takes Tylenol as needed for pain. He has been stretching and icing which does help, but he admits that he has not been doing this consistently. He has a history of psoriasis but denies any flare-ups recently. He has no other foot complaints this visit. Allergies and medical history reviewed. Examination Category Sub-Category Detail Notes Category Not [...] tenderness on compression of the left heel, pain on palpation of the plantar left heel and along the plantar medial left arch. DERMATOLOGICAL: No masses, openings, or skin lesions noted. Normal skin temperature, normal skin turgor. BIOMECHANICS: STJ ROM WNL, MTJ ROM limited, 1st MPJ ROM limited. On weight-bearing, rectus foot SHOES: sandals
--- NOTE | 2024-03-23 11:22 | A.OFFVIS_ITS ---
Vital Signs 03/23/24 11:24 Height 6 ft Weight 244 lb BMI 33.1 BP 134/80 Blood Pressure Location Lt brachial Position Sitting Pulse 89 Intake Visit Reasons: yearly follow up Intake Note: Patient follow up for Diverticulosis also lab and US results. Patient cc: Print Finisher Required: No Accompanied by: Self / Same As Patient Allergies No Known Allergies (No Known Allergies*) Allergy (Verified 04/10/24 09:41) Medication List - Last Reconciled 03/23/24 by Tawana Ray MD levothyroxine 100 mcg PO DAILY pantoprazole 40 mg PO BID 90 days rosuvastatin (Crestor) 5 mg PO DAILY HPI HPI yearly follow up: Details: GI CLINIC VISIT FOR THIS 52-YEAR-OLD MALE FOR FOLLOW-UP OF GERD, ASYMPTOMATIC GALLSTONES AND COLON CANCER SCREENING. Reason:US shows large gallstone, fatty liver and pancreas, + pain 01/04/23 Pt had a Lap Brittany by Dr Matos ?CHRONIC ILLNESSES:?psoriasis, vitamin D deficiency, mixed hyperlipidemia, acquired hypothyroidism, GERD without esophagitis, obesity due to excess calories - BMI 31.0-31.9 in adult, RALPH, elevated bilirubin, substernal chest pain, left flank pain - h/o kidney stones 2009, calculus of gallbladder with biliary obstruction, without cholecystitis, PFT- a mild degree of restrictive pulmonary disorder is noted, which may be related to obesity; no obstructive airway disorder, Echo 08/2017 wnl TODAY'S VISIT: Denies abdominal pain Pt denies past hx of liver disease or hepatitis. Denies known FH of liver disease Taking azithromycin for bronchitis and will finish tomorrow Pt scheduled for an earlier FU appointment after PCP's message: On 10/11/23 @ 16:18 Miranda Day Wrote To LADONNA Ray Hi [place] patient w/ Dr Ray He has some abnormal labs ferritin, bili, LDH (see September labs). I want him to be evaluated before his March appt Please reach out to patient directly. Or myself should you have questions. Thanks! Miranda LEUNG surgery went well. RUQ pain has resolved since the surgery Denies heartburn or dysphagia PAST VISIT: Has been having intermittent episodes of sharp 6-7/10 RUQ pain since the end of August. First episode 20 min after eating dinner. Pain started in the RUQ and radiated to the epigastrium. Pain became worse on moving. 2nd episode woke him up from sleep and was associated with nausea and cold sweats.Has not had additional episodes since then Pt denies vomiting or fever Has been taking VItamin D every 2-3 days Taking Pantoprazole once a day and takes a 2nd dose prn He was sick with COVID over Thanksgiving despite vaccination. Denies abdominal pain or GERD symptoms Rare breakthrough symptoms related to diet. Takes Pantoprazole at night and sometimes during the day for breakthrough symptoms. Mother had GB removed a few weeks ago. Not eager to have GB surgery yet. Doing good - no problems Stress test at [facility] and whole body US were good Heartburn is well controlled with the pantoprazole 40 mg twice daily. Had a physical exam 3 weeks ago. Noted burning abdominal pain on the left side which is bouncing all over his body - epigastric/RUQ/LUQ and lower chest shoulders. Pain can vary between burning and stinging. Some days are good and somedays are not so good. Pain resolves at night and able to sleep without any problems. Pain can last all day on some days. Can have intermittent throat irritation Sometimes improves after eating. At times, he does not feel good after eating. His weight has been stable at 232 lb - advised weight reduction of 10-15 lb due to fatty liver ? Stopped Zantac and started having some heartburn. ? Using Omeprazole for the past 4 days and appears to be helping ? Denies dysphagia. ? Finished with antbiotics for a cold followed by cough. ? 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 ? Denies recent change in bowel habits, black stools or rectal bleeding. ? Denies known FH of colon polyps or colon cancer. ? Maternal uncle recently diagnosed with abdominal/liver cancer - primary site is unclear. ? Denies pas issues with anesthesia. ? Denies major cardiac or pulmonary problem ? LABS IN [facility]: 10/30/2018 normal CBC, ? 11/08/18 BUN 8, creatinine 1.47, bilirubin 1.3, AST 21, ALT 26, alkaline phosphatase 69, albumin 4.8 ? 06/2017: Stool for H pylori antigen was negative. ?IMAGING STUDIES:? 09/22/22 ABD US SHOWED: GALLBLADDER: The gallbladder is physiologically distended. There is a single large 3.5 x 2.4 x 2.9 cm nonmobile gallstone present. No evidence of gallbladder wall thickening or pericholecystic fluid. Garrett's sign is negative. COMMON BILE DUCT: Normal in caliber measuring 0.65 cm in diameter. RIGHT KIDNEY: Normal. No hydronephrosis. No renal calculi or focal parenchymal lesions. The kidney measures 10.1 cm in maximum dimension. FREE FLUID: None. US/US abdomen limited IMPRESSION: 1.? Hepatic steatosis with focal fatty sparing around the gallbladder. 2.? Cholelithiasis without evidence of cholecystitis. ?ENDOSCOPIC STUDIES: 01/22/20 COLONOSCOPY SHOWED: ? One small adenomatous polyp was removed ? Moderate diverticulosis seen in the sigmoid colon ? Moderate hemorrhoids on retroflexed exam. ? Plan:? Patient has an appointment on 03/25/20 in the GI Clinic with Tawana Ray M.D.-. ? Repeat Colonoscopy interval based on path results - in 5 years if polyps are adenomatous and 10 years if polyps are hyperplastic. ? Above findings were reviewed with the patient and colon polyps and diverticulosis handouts were given in the discharge area 01/05/19 EGD SHOWED:? Esophagus: GE junction at 40 cms. Two 1 cms healing erosions. Irregular Z line ? - biopsied to check for Rene s. ? Stomach: Moderate diffuse gastric erythema with prominent gastric folds with ? small amount of heme in the stomach - biopsies were obtained from the gastric ? folds and antrum. Grade 2 flap ? valve on retroflexed examination of the cardia. ? Duodenum: Normal bulb and descending duodenum ? Intervention: Biopsies as noted above ? Impression and Post Procedure Diagnosis: ? Endoscopy Findings: ? ESOPHAGUS: Two small healing erosions and irregular Z line ? STOMACH: Diffuse gastritis with prominent gastric folds ? DUODENUM: Normal ? Plan: ? Await pathology results ? Patient has an appointment on 01/27/19 in the GI Clinic with Tawana Ray M.D ? Above findings were reviewed with the patient and GERD and Gastritis handouts ? were provided in the discharge area. ?BIOPSIES SHOWED: ? A. Stomach, biopsies: Reactive gastropathy with background mild chronic ? inactive inflammation; no Helicobacter organisms seen. ? B. Stomach, gastric fold, biopsies: Oxyntic type mucosa with mild chronic ? inactive inflammation; no Helicobacter organism seen. ? C. Esophagus, distal, biopsies: Esophagogastric junctional mucosa with mild ? chronic inflammation; squamous epithelium within normal limits; negative for ? intestinal metaplasia; negative for dysplasia. [facility] Medical History History of PFTs Diverticulosis Hematoma GERD (gastroesophageal reflux disease) Renal calculi Fatty liver Thyroid disease Elevated cholesterol Surgical History Hx laparoscopic cholecystectomy (01/04/23) History of colonoscopy History of evacuation of hematoma History of esophagogastroduodenoscopy (EGD) Family History Father CAD (coronary artery disease) Mother Hx of colon cancer, stage IV Social History Household Members: Spouse and Children Both parents involved: No Caregiver staying overnight: No Housing: House Are you a primary home day care provider to a significant other at home: No Do you presently have visiting nurse or other home services: No 75 years or older and lives alone: No Alcohol intake: current Alcohol intake frequency: holidays/special occasions only Patient Tobacco Use Status: Never used Tobacco e-Cigarette/Vaping Use: Never Used Second Hand Smoke Exposure: No service: No Current occupational status: employed 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 Current occupational exposures/hazards: Yes Sexual orientation: Unable to collect Gender identity: Unable to collect Cognitive needs: No Hearing needs: No Vision needs: No Review of Systems Const All systems reviewed & are unremarkable except as noted in HPI and below Physical Exam Vital Signs: Last Vital Signs Pulse 89 03/23/24 11:24 BP 134/80 03/23/24 11:24 BMI result Body Mass Index 33.1 Const General: healthy appearing and no acute distress Nutritional Appearance: obese Orientation/consciousness: patient oriented x3 Limitations: no limitations HEENT Head: Yes normal to inspection Ears: hearing grossly normal bilaterally Eyes Sclerae: sclerae normal Pupils: Equal, round and reactive pupils present Neck Neck: Yes normal visual inspection Chest Chest palpation & inspection: normal inspection of the chest Resp Effort & Inspection: normal respiratory effort Auscultation: clear to auscultation bilaterally Cardio Palpation: normal PMI Rate: regular rate Rhythm: regular rhythm Heart sounds: S1 normal heart sound present, S2 normal heart sound present and no murmurs GI Palpation (GI): Soft to palpation, nontender and No hepatosplenomegaly present Auscultation: normal bowel sounds Rectal Exam - Male: Yes deferred Skin General skin exam: no rashes or lesions noted Neuro General: patient oriented x3, gait normal and moves all extremities Cranial nerves: Yes Equal, round and reactive pupils present Psych Appearance: grossly normal Mental Status: mental status grossly normal Assessment & Plan Assessment & Plan (1) Diverticulosis: Code(s): K57.90 - Diverticulosis of intestine, part unspecified, without perforation or abscess without bleeding Category: Medical (2) GERD without esophagitis: Comment: Continue Pantoprazole 40 mg twice daily Code(s): K21.9 - Gastro-esophageal reflux disease without esophagitis Category: Medical (3) History of colon polyps: Comment: 01/22 one small tubular adenoma was removed during colonoscopy. Repeat colonoscopy is advised in 5 years (due in 01/27) Code(s): Z86.010 - Personal history of colon polyps Category: Medical (4) NAFL (nonalcoholic fatty liver): Code(s): K76.0 - Fatty (change of) liver, not elsewhere classified Category: Medical (5) Elevated LFTs: Code(s): R79.89 - Other specified abnormal findings of blood chemistry Category: Medical Plan 53 YM with psoriasis, vitamin D deficiency, mixed hyperlipidemia, acquired hypothyroidism, GERD without esophagitis, obesity due to excess calories - BMI 32.3 in adult, RALPH, elevated bilirubin, substernal chest pain, left flank pain - h/o kidney stones 2009, calculus of gallbladder without cholecystitis, Echo 08/2017 wnl. Patient is followed in GI for noncardiac chest pain associated with symptoms of heartburn, fatty liver and possible fat in the pancreas and asymptomatic gallstone. Noncardiac chest pain is likely related to esophageal spasm associated with the GERD. Symptoms improved with ranitidine 150 mg at bedtime. He noted recurrent heartburn on stopping ranitidine since it was not covered by his insurance. Upper endoscopy showed gastritis and two 1 cms healing esophageal erosions and no Rene's. Omeprazole 20 mg daily was prescribed and patient has noted breakthrough symptoms. Fatty liver with suspected fat in the pancreas likely related to obesity. Recent LFTs were normal. Patient was advised to work on weight reduction. Patient was advised to increase pantoprazole to 40? mg twice daily and decrease vitamin-D to every other day due to high levels in the past 05/09/20 Pt called and abdominal US results were reviewed with him US reviewed with radiology - gallstone size is 2.5 cms (increased from 1.75 cms in 2019. He may need a prophylactic Lap Brittany if gallstone is > 3 cms due to increased risk of GB cancer associated with large gallstones. Pt stated he is feeling better - has been trying to take PPI twice a day which has helped (sometimes he forgets to take it) 09/2021 ABD US SHOWED: Gallstones. Echogenic liver probably representing fatty infiltration.? Largest gallstone is almost 3 cms. 10/09/22 Intermittent episodes of RUQ pain and gallstone size increased to 3.5 cms 01/04/23 Pt had a Lap Brittany by Dr Matos 03/11/23 Abd pain resolved after Lap brittany 11/26/23 Pt seen for evaluation of elevated TB, ferritin and LDH. Pt denies past or family hx of liver disaese. 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 Mild elevation of ALT, ferritin, and LDH likely due to steatohepatitis. I will check iron studies, hepatitis serologies, genetic testing for hemochromatosis and abd US with elastography to rule out cirrhosis 03/23/24 Elevated LFTs - likely fatty liver related to obesity and pt advised to work on weight loss. Increase in total bilirubin with predominent increase in indirect bili - likely due to Gilbert's syndrome Hepatitis serologies were negative except immunity to hepatitis-B - due to past infection/immunization Normal iron studies with ferritin of 241 Genetic screen for hemochromatosis was negative. Liver fibrosis score of 0.24, liver fibrosis stage F0-F1 Abdominal ultrasound with elastography showed: 1. There is generalized increase in hepatic echotexture, consistent with fatty infiltration or hepatocellular disease. Please correlate clinically. No focal hepatic mass or intrahepatic biliary dilatation is seen. 2. Elastography: Liver elastography measurements are consistent with a minimal risk for clinically significant liver fibrosis (METAVIR Stage F0-F1). 3. The gallbladder is surgically absent. FU in 6 months. Coding Level of Care Code Est Pt Level 4 (99237) Diagnoses Diverticulosis K57.90 GERD without esophagitis K21.9 History of colon polyps Z86.010 NAFL (nonalcoholic fatty liver) K76.0 Elevated LFTs R79.89 Time Spent (min) 19
[2024-03-23 11:24] VITALS: BP 134/80; PULSE 89; BMI 33.1
== END 2024-03-23 13:07 | disposition home or self-care (01) ==
PROVIDERS: PCP Nurse Practitioner Family; Visit Provider Internal Medicine Gastroenterology
DX: K57.90 Diverticulosis of intestine, part unspecified, without perforation or abscess without bleeding (principal); K21.9 Gastro-esophageal reflux disease without esophagitis; K76.0 Fatty (change of) liver, not elsewhere classified; R79.89 Other specified abnormal findings of blood chemistry; Z86.0100 Personal history of colon polyps, unspecified
CPT/HCPCS: 99499

== ENCOUNTER 2024-04-10 08:57 | Outpatient (AMB) | payer OTHER, SELFPAY ==
--- NOTE | 2024-04-10 09:05 | A.OFFPC_ITS ---
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 Allergies No Known Allergies [No Known Allergies*] Allergy (Verified 04/10/24 09:41) Medication List - Last Reconciled 04/10/24 by Miranda Day, [facility]- diclofenac sodium 1% grams topical BID levothyroxine 100 mcg PO DAILY pantoprazole 40 mg PO BID 90 days rosuvastatin (Crestor) 5 mg PO DAILY Tobacco use date assessed: 09/17/23 Dental Screening Dental Screen Date: 09/17/23 HPI HPI Comments History of Present Illness Details 53-year-old male with nonalcoholic liver , obesity, GERD, hypothyroidism, hyperlipidemia, vitamin-D deficiency, psoriasis, diverticulosis, renal calculi, elevated serum creatinine Status post lap cholecystectomy 2022 Health maintenance Colonoscopy January 2020 repeat in 5 years due January 2025 EGD 01/05/2019 GASTRITIS AND 2 1 CM HEALING ESOPHAGEAL EROSIONS WITH NO JOHNSTON'S PFT- a mild degree of restrictive pulmonary disorder is noted, which may be related to obesity; no obstructive airway disorder Echo 08/2017 wnl Tdap 2022 Fl today [facility] GI last appt 03/08/24, next 09/2024 Renal next appt 11/14/[address] Sravani Hall PRN plantar fasciitis Optho next visit 04/2024 glasses, no contacts Skin cancer screening through [employer] [facility] consults reviewed: GI consult 11/2023 Chronic mild elevation of total bilirubin (predominantly indirect) -likely due to Gilbert's syndrome. Mild elevation of ALT, ferritin, and LDH likely due to steatohepatitis. I will check iron studies, hepatitis serologies, genetic testing for hemochromatosis and abd US with elastography to rule out cirrhosis Next visit 09/2024 Results Labs 09/04/2023 show normal CBC, normal electrolytes, BUN 22, creatinine 1.47, stable GFR 51, elevated total bilirubin 1.7, elevated ALT 41, normal AST, normal alk phos, normal total protein and albumin, normal lipid profile with LDL 77, TSH 2.73, urine normal Here today for CPE He reports ongoing management of plantar fasciitis, initially causing significant pain, which is now localized to the heel. The patient notes improvement through physical therapy exercises, including those given by a specialist. Psoriasis has been a persistent condition, mainly affecting his arms, elbows, and ears, managed with lotions and previously prescribed topical steroids. In terms of gastrointestinal issues, the patient has been managing GERD with pantoprazole, which he uses QD ; BID as needed based on dietary intake. He was evaluated for hyperbilirubinemia suspected due to fluctuating bilirubin levels; recent labs indicated the presence of fatty liver, which has been monitored with repeat labs and ultrasounds, revealing mild concerns but no pressing issues. There is a significant familial mental health strain reported due to household stress involving his daughter, contributing to sleep disturbances and feelings of frustration. Complaining of occasional not like sensation in his right upper back and neck. Improves with massage. Can be worse at times when sitting down. Wonders if he needs to see a chiropractor. bleeding hemorrhoids relieved w/ gold lucero powder General: Well developed, well nourished, in no acute distress. Appears stated age. Head: Normocephalic, atraumatic. Eyes: Pupils are equal, round and reactive to light and accommodation. Conjunctivae are clear. Vision grossly normal. Ears: TMs clear AU, EACS WNL Nose: Patent, without discharge. Mouth: There are no ulcers or lesions noted. No inflammation, no post nasal drip, no plaques nor exudates. Neck: Supple, no adenopathy or thyromegaly. Lungs: Clear to auscultation bilaterally. No rales, rhonchi or wheeze noted. Good air flow in all jiang. Heart: Regular rate and rhythm. No murmurs, click, rubs or gallops are noted. Abdomen: Bowel sounds present in all quadrants. The abdomen is soft, nontender, with no masses or organomegaly noted. No hernias are noted. Musculoskeletal: Joints are nontender, without swelling, redness, or effusions. Range of motion is observed to be normal. Pain w/ palp over paraspinal cervical right, no spinal tenderness Pulses: Peripheral pulses are equal and palpable bilaterally. Extremities: No clubbing, cyanosis nor edema is noted. Neurologic: Gait and station normal. Cranial Nerves 2-12 intact. Motor strength grossly symmetrical and intact. No sensory loss. Balance normal. Skin: No ulcers, or lesions noted. Turgor is good. Skin color is good. Hair and nails are without abnormalities. psoriasis bilat elbow, RUQ Psych: Normal eye contact, affect and mood appropriate, and normal interactions. Patient is alert and appropriate to context. Plan - Advise regular meals and snacks to red uce fasting-induced bilirubin levels. - psoriasis management; prescribe a topi malik steroid cream. - Encourage maintenance of hydration to improve musculoskeletal symptoms. - Recommend attending chiropractic evalu ation for reported neck and shoulder pain. - Stress family-based counseling resourc es; encourage daughter?s engagement with mental health services. - Obtain labs today Patient was informed and verbally consented to the use of an ambient scribe for clinic note documentation during this visit. Discussion Notes During the visit, we discussed the management strategies for each of the listed conditions. The patient was informed about the likely diagnosis of Gilbert?s syndrome, which poses no significant health risks, and advised on dietary modifications to help manage bilirubin levels. In addressing plantar fasciitis and psoriasis, the importance of adherence to home exercises and consistent topical treatment was highlighted. Additionally, potential benefits of home health care provider and the utilization of a TENS unit for neck pain relief were emphasized. I also discussed the family's mental health stressors, providing guidance on leveraging community mental health resources for familial support, and encouraged consistent follow-ups to monitor and address ongoing health issues. Patient Instructions - Take pantoprazole as needed before kelsey ls causing GERD symptoms. - Maintain regular meals to prevent fast ing-induced rises in bilirubin. - Apply steroid cream to psoriasis-affec claire areas as instructed twice daily. - Stay hydrated throughout the day to moreno pport musculoskeletal health. - Arrange a visit to a chiropractor for neck and shoulder discomfort. - Attend follow-up appointments and labs as scheduled to monitor health conditions. - Engage with mental health services for family support and stress management. - Schedule and attend upcoming cancer [facility] RTO 6 MO ROUTINE FU LABS DONE 1 WEEK BEFORE, SOONER PRN [facility] Medical History History of PFTs Diverticulosis Hematoma GERD (gastroesophageal reflux disease) Renal calculi Fatty liver Thyroid disease Elevated cholesterol Surgical History Hx laparoscopic cholecystectomy (01/04/23) History of colonoscopy History of evacuation of hematoma History of esophagogastroduodenoscopy (EGD) Family History Father CAD (coronary artery disease) Mother Hx of colon cancer, stage IV Social History Household Members: Spouse and Children Housing: House Are you a primary home health care provider to a significant other at home: No Do you presently have visiting nurse or other home services: No Alcohol intake: current Alcohol intake frequency: holidays/special occasions only Patient Tobacco Use Status: Never used Tobacco e-Cigarette/Vaping Use: Never Used Second Hand Smoke Exposure: No service: No Current occupational status: employed 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 1. Little interest or pleasure in doing things: not at all 2. Feeling down, depressed, or hopeless: not at all 3. Trouble falling or staying asleep, or sleeping too much: not at all 4. Feeling tired or having little energy: not at all 5. Poor appetite or overeating: not at all 6. Feeling bad about yourself - or that you are a failure or have let yourself or your family down: not at all 7. Trouble concentrating on things, such as reading the newspaper or watching television: not at all 8. Moving or speaking so slowly that other people could have noticed. Or the opposite - being so fidgety or restless that you have been moving around a lot more than usual: not at all 9. Thoughts that you would be better off or of hurting yourself in some way: not at all Total score: 0 Depression Screening Interpretation: Negative Depression Screening Done: Yes 16334 - PHQ-9 Billing: Yes Source: Developed by Drs. Clint Kelley, Marielle Velazquez, Yoan Sampson and colleagues, with an educational jose e from [employer]. Thrive Questionnaire Date Thrive assessed: 04/10/24 I am a: Patient What is your living situation today?: I have a steady place to live Within the past 12 months, did the food you bought not last and you didn't have the money to get more?: Never true Within the past 12 months, did you worry whether your food would run out before you got money to buy more?: Never true Do you have trouble paying for medicines?: No Do you have trouble getting transportation to medical appointments?: No Do you have trouble paying your heating and electricity bill?: No Do you have trouble taking care of your child, family member or friend?: No Do you have trouble with day-to-day activities such as bathing, preparing meals, shopping, managing finances, etc.?: No Are you currently unemployed and looking for a job?: No Are you interested in more education?: No Please select the resources that you would like help with: None Currently or been in a relationship where the following occur: No concerns reported THRIVE Score: 0 AUDIT C Alcohol Use Questionnaire (AUDIT-C) 1. How often do you have a drink containing alcohol?: Monthly or less 2. How many drinks containing alcohol do you have on a typical day when you are drinking?: 1 or 2 3. How often do you have six or more drinks on one occasion?: Less than monthly Total Score: 2 Score Reviewed/Action Taken: Yes JANESSA-7 AMB Questionnaire JANESSA-7 Date JANESSA - 7 assessed: 04/10/24 Feeling nervous, anxious, or on edge: 0 = Not at all Not being able to stop or control worryin = Not at all Worrying too much about different things: 0 = Not at all Trouble relaxin = Not at all Being so restless that it is hard to sit still: 0 = Not at all Becoming easily annoyed or irritable: 0 = Not at all Feeling afraid as if something awful might happen: 0 = Not at all Total JANESSA-7 score (0-4 normal; 5-9 mild; 10-14 moderate; 15-21 severe): 0 Source: Developed by Drs. Clint Kelley, Marielle Velazquez, Yoan Sampson and colleagues, with an educational jose e from [employer]. JANESSA-7 Assessment Billing JANESSA-7 Assessment Tool: JANESSA-7 Assessment 76938 Physical exam (Primary Care) Vital Signs: Last Vital Signs Pulse 68 04/10/24 09:11 Resp 13 04/10/24 09:11 BP 124/70 04/10/24 09:11 Pulse Ox 98 04/10/24 09:11 Oxygen Delivery Method Room Air 04/10/24 09:11 BMI result Body Mass Index 33.7 BMI Assessment/Plan discussion: High BMI High, discussed plan: lifestyle Tobacco/Smoking Status: Tobacco use Status Tobacco use date assessed 09/17/23 04/10/24 09:06 Patient Tobacco Use Status Never used Tobacco 04/10/24 09:06 e-Cigarette/Vaping Use Never Used 04/10/24 09:06 PHQ-9: PHQ-9 Score PHQ-9: Total score 0 04/10/24 10:37 Depression Screening Interpretation: Negative Thrive Assessment: Date of Thrive Assessment Date Thrive assessed 04/10/24 04/10/24 09:12 Currently or been in a relationship where the following occur: No concerns reported Office Procedures Flu Questionnaire Does the patient have a severe egg allergy?: No Does the patient have severe life threatening allergies?: No Does the patient have a fever or illness today?: No Has the patient ever had Guillain-[place] Syndrome?: No Has the patient ever had any past reaction to a flu shot?: No Immunizations Fluarix Triv 0630-6541 (PF) 45 mcg (15 mcg x 3)/0.5 mL IM syringe Performing Provider: SAUL Rowe Performing Location: [facility] Administered by: Shonna Flores RN on 04/10/24 10:37 Dose Route Admin Location Dispensed Lot Number Expiration Date [facility] Refractory Technician 0.5 mL IM Right Deltoid 0.5 mL [id number] 10/02/24 08682-742-34 [employer] VIS Given Date VIS Provided VIS Publication Date 04/10/24 Single Vaccine 20 Eligibility Eligibility Date Funding Source Not [facility] Eligible 04/10/24 Private Coding Level of Care Code Est Pt Prev Care 40-64y(29087) Diagnoses Encounter for general adult medical examination without abnormal findings Z00.00 BMI 33.0-33.9,adult Z68.33 Class 1 obesity due to excess calories with serious comorbidity and body mass index (BMI) of 33.0 to 33.9 in adult E66.811; E66.09; Z68.33 Obesity type: due to excess calories Serious obesity comorbidity presence: with serious comorbidity Vitamin D deficiency E55.9 Mixed hyperlipidemia E78.2 Hyperlipidemia type: mixed hyperlipidemia Acquired hypothyroidism E03.9 Hypothyroidism type: acquired NAFL (nonalcoholic fatty liver) K76.0 Situational stress F43.9 Upper back pain on right side M54.9 Grade I hemorrhoids K64.0 Hemorrhoid type: first degree Psoriasis L40.9 Influenza vaccination administered at current visit Z23 Additional Codes JANESSA-7 Assessment Billing - JANESSA-7 Assessment Tool: JANESSA-7 Assessment 21745 ([id number]) PHQ-9 - 76239 - PHQ-9 Billing: Yes ([id number]) Assessment & Plan Assessment & Plan (1) Encounter for general adult medical examination without abnormal findings: Code(s): Z00.00 - Encounter for general adult medical examination without abnormal findings (2) BMI 33.0-33.9,adult: Code(s): Z68.33 - Body mass index [BMI] 33.0-33.9, adult Category: Medical (3) Class 1 obesity with body mass index (BMI) of 33.0 to 33.9 in adult: Comment: HLD, Code(s): E66.811 - Obesity, class 1; Z68.33 - Body mass index [BMI] 33.0-33.9, adult Category: Medical Qualifiers: Obesity type: due to excess calories Serious obesity comorbidity presence: with serious comorbidity Qualified Code(s): E66.811 - Obesity, class 1; E66.09 - Other obesity due to excess calories; Z68.33 - Body mass index [BMI] 33.0-33.9, adult (4) Vitamin D deficiency: Comment: was taking 5000 mcg daily. Vitamin-D level greater than 70. Advised to di scontinue supplement. We will trend at future labs. should avoid supplements in future given ^ bili Code(s): E55.9 - Vitamin D deficiency, unspecified Category: Medical (5) Hyperlipidemia: Code(s): E78.5 - Hyperlipidemia, unspecified Category: Medical Qualifiers: Hyperlipidemia type: mixed hyperlipidemia Qualified Code(s): E78.2 - Mixed hyperlipidemia (6) Hypothyroidism: Code(s): E03.9 - Hypothyroidism, unspecified Category: Medical Qualifiers: Hypothyroidism type: acquired Qualified Code(s): E03.9 - Hypothyroidis m, unspecified (7) NAFL (nonalcoholic fatty liver): Code(s): K76.0 - Fatty (change of) liver, not elsewhere classified Category: Medical (8) Situational stress: Code(s): F43.9 - Reaction to severe stress, unspecified (9) Upper back pain on right side: Code(s): M54.9 - Dorsalgia, unspecified Category: Medical (10) Hemorrhoids: Code(s): K64.9 - Unspecified hemorrhoids Category: Medical Qualifiers: Hemorrhoid type: first degree Qualified Code(s): K64.0 - First degree hemorrhoids (11) Psoriasis: Code(s): L40.9 - Psoriasis, unspecified Category: Medical (12) Influenza vaccination administered at current visit: Code(s): Z23 - Encounter for immunization Plan . Orders: Orders Comprehensive Met. Panel Today E03.9 - Hypothyroidism, unspecified, E55.9 - Vitamin D deficiency, unspecified, E78.5 - Hyperlipidemia, unspecified, K76.0 - Fatty (change of) liver, not elsewhere classified Hemoglobin A1c Today E03.9 - Hypothyroidism, unspecified, E55.9 - Vitamin D deficiency, unspecified, E78.5 - Hyperlipidemia, unspecified, K76.0 - Fatty (change of) liver, not elsewhere classified Microalbumin, Random (w Creat) Today E03.9 - Hypothyroidism, unspecified, E55.9 - Vitamin D deficiency, unspecified, E78.5 - Hyperlipidemia, unspecified, K76.0 - Fatty (change of) liver, not elsewhere classified Vitamin D 25-OH Total Today E03.9 - Hypothyroidism, unspecified, E55.9 - Vitamin D deficiency, unspecified, E78.5 - Hyperlipidemia, unspecified, K76.0 - Fatty (change of) liver, not elsewhere classified Complete Blood Count no Diff Today E03.9 - Hypothyroidism, unspecified, E55.9 - Vitamin D deficiency, unspecified, E78.5 - Hyperlipidemia, unspecified, K76.0 - Fatty (change of) liver, not elsewhere classified Comprehensive Roland. Panel Fast 6 Months E03.9 - Hypothyroidism, unspecified, E78.5 - Hyperlipidemia, unspecified Lipid Panel 6 Months E03.9 - Hypothyroidism, unspecified, E78.5 - Hyperlipidemia, unspecified TSH reflex Free T4 6 Months E03.9 - Hypothyroidism, unspecified, E78.5 - Hyperlipidemia, unspecified Influenza [id number] Immunization Today Z23 - Encounter for immunization PSA, Ultra Sensitive Today E03.9 - Hypothyroidism, unspecified, E55.9 - Vitamin D deficiency, unspecified, E78.5 - Hyperlipidemia, unspecified, K76.0 - Fatty (change of) liver, not elsewhere classified Lipid Panel Today E03.9 - Hypothyroidism, unspecified, E55.9 - Vitamin D deficiency, unspecified, E78.5 - Hyperlipidemia, unspecified, K76.0 - Fatty (change of) liver, not elsewhere classified TSH reflex Free T4 Today E03.9 - Hypothyroidism, unspecified, E55.9 - Vitamin D deficiency, unspecified, E78.5 - Hyperlipidemia, unspecified, K76.0 - Fatty (change of) liver, not elsewhere classified Vitamin B12 and Folate Today E03.9 - Hypothyroidism, unspecified, E55.9 - Vitamin D deficiency, unspecified, E78.5 - Hyperlipidemia, unspecified, K76.0 - Fatty (change of) liver, not elsewhere classified Referrals Chiropractic Referral M54.9 - Dorsalgia, unspecified Medications: New betamethasone dipropionate 0.05% 1 appl topical BID PRN 45 grams 3RF skin rash Patient Instructions: [facility] ?[address] [place] [id number] Health screenings for men ages 40 to 64 You should visit your health care provider regularly, even if you feel healthy. The purpose of these visits is to: Screen for medical issues Assess your risk for future medical problems Encourage a healthy lifestyle Update vaccinations and other preventive care services Help you get to know your provider in case of an illness Information Even if you feel fine, you should still see your provider for regular checkups. These visits can help you avoid problems in the future. For example, the only way to find out if you have high blood pressure is to have it checked regularly. High blood sugar and high cholesterol level also may not have any symptoms in the early stages. Simple blood tests can check for these conditions. There are specific times when you should see your provider or receive specific health screenings. The [place] Preventive Services Task Force publishes a list of recommended screenings. Below are screening guidelines for men ages 40 to 64. BLOOD PRESSURE SCREENING Have your blood pressure checked at least once every year. Watch for blood pressure screenings in your area. Ask your provider if you can stop in to have your blood pressure checked. Ask your provider if you need your blood pressure checked more often if: You have diabetes, heart disease, kidney problems, or are overweight or have certain other health conditions You have a first-degree relative with high blood pressure You are Black Your blood pressure top number is from 120 to 129 mm Hg, or the bottom number is from 70 to 79 mm Hg If the top number is 130 mm Hg or greater or the bottom number is 80 mm Hg or greater, this is considered stage 1 hypertension. Schedule an appointment with your provider to learn how you can lower your blood pressure. Effects of age on blood pressure CHOLESTEROL SCREENING Cholesterol screening should begin at age 35 for men with no known risk factors for coronary heart disease. Repeat cholesterol screening should take place: Every 5 years for men with normal cholesterol levels More often if changes occur in lifestyle (including weight gain and diet) More often if you have diabetes, heart disease, kidney problems, or certain other conditions COLORECTAL CANCER SCREENING If you are under age 45, talk to your provider about getting screened. You may need to be screened if you have a strong family history of colon cancer or polyps. Screening may also be considered if you have risk factors such as a history of inflammatory bowel disease or polyps. If you are age 45 to 75, you should be screened for colorectal cancer. There are several screening tests available: A stool-based fecal occult blood (gFOBT) or fecal immunochemical test (FIT) every year A stool sDNA test every 1 to 3 years Flexible sigmoidoscopy every 5 years or every 10 years with stool testing FIT done every year CT colonography (virtual colonoscopy) every 5 years Colonoscopy every 10 years You may need a colonoscopy more often if you have risk factors for colorectal cancer, such as: Ulcerative colitis A personal or family history of colorectal cancer A history of growths in your colon called adenomatous polyps DENTAL EXAM Go to the dentist once or twice every year for an exam and cleaning. Your dentist will evaluate if you have a need for more frequent visits. DIABETES SCREENING All adults who do not have risk factors for diabetes should be screened starting at age 35 and repeated every 3 years. If you have other risk factors for diabetes, such as a first degree relative with diabetes, overweight or obesity, high blood pressure, prediabetes, or a history of heart disease, you may be tested more often. If you are overweight and have other risk factors, such as high blood pressure and are planning to become , screening is recommended. EYE EXAM Have an eye exam every 2 to 4 years ages 40 to 54 and every 1 to 3 years ages 55 to 64. Your provider may recommend more frequent eye exams if you have vision problems or glaucoma risk. Have an eye exam that includes an examination of your retina (back of your eye) at least every year if you have diabetes. IMMUNIZATIONS Commonly needed vaccines include: Flu shot: get one every year COVID-19 vaccine: ask your provider what is best for you Tetanus-diphtheria and acellular pertussis (Tdap) vaccine: have as one of your tetanus-diphtheria vaccines if you did not receive it as an adolescent Tetanus-diphtheria: have a booster (or Tdap) every 10 years Varicella vaccine: receive 2 doses if you never had chickenpox or the varicella vaccine and were born in 1979 or after Hepatitis B vaccine: receive 2, 3, or 4 doses, depending on your exact circumstances, if you did not receive these as a child or adolescent, until age 59 Shingles (herpes zoster) vaccine: at or after age 50 Ask your provider if you should receive other immunizations, especially if you have certain medical conditions, such as diabetes or are at increased risk for some diseases such as pneumonia. INFECTIOUS DISEASE SCREENING Screening for hepatitis C: all adults ages 18 to 79 should get a one-time test for hepatitis C. Screening for human immunodeficiency virus (HIV): all people ages 15 to 65 should get a one-time test for HIV. Depending on your lifestyle and medical history, you may need to be screened for infections such as syphilis, chlamydia, and other infections. LUNG CANCER SCREENING You should have an annual screening for lung cancer with low-dose computed tomography (LDCT) if: You are age 50 to 80 years AND You have a 20 pack-year smoking history AND You currently smoke or have quit within the past 15 years OSTEOPOROSIS SCREENING If you are age 50 to 64 and have risk factors for osteoporosis, you should discuss screening with your provider. Risk factors can include long-term steroid use, low body weight, smoking, heavy alcohol use, having a fracture after age 50, or a family history of hip fracture or osteoporosis. Osteoporosis PHYSICAL EXAM All adults should visit their provider from time to time, even if they are healthy. The purpose of these visits is to: Screen for diseases Assess risk of future medical problems Encourage a healthy lifestyle Update vaccinations and other preventive care services Maintain a relationship with a provider in case of an illness Your height, weight, and body mass index (BMI) should be checked at every exam. During your exam, your provider may ask you about: Depression and anxiety Diet and exercise Alcohol and tobacco use Safety, such as use of seat belts and smoke detectors Your medicines and risk for interactions PROSTATE CANCER SCREENING If you're 55 through 69 years old, before having the test, talk to your provider about the pros and cons of having a PSA test. Ask about: Whether screening decreases your chance of dying from prostate cancer. Whether there is any harm from prostate cancer screening, such as side effects from testing or overtreatment of cancer when discovered. Whether you have a higher risk of prostate cancer than others. If you are age 55 or younger, screening is not generally recommended. You should talk with your provider about if you have a higher risk for prostate cancer. Risk factors include: Having a family history of prostate cancer (especially a brother or father) Being If you choose to be tested, the PSA blood test is repeated over time (yearly or less often), though the best frequency is not known. Prostate examinations are no longer routinely done on men with no symptoms. Prostate cancer SKIN EXAM Your provider may check your skin for signs of skin cancer, especially if you're at high risk. People at high risk include those who have had skin cancer before, have close relatives with skin cancer, or have a weakened immune system. TESTICULAR EXAM The [place] Preventive Services Task Force (USPSTF) now recommends against performing testicular self-exams. Doing testicular self-exams has been shown to have little to no benefit.
[2024-04-10 09:11] VITALS: BP 124/70; PULSE 68; RESP 13; O2SAT 98; BMI 33.7
--- OUTSIDE RECORDS SUMMARY | 2024-04-10 09:20 | XMS_ITS ---
Author Organization [facility] Address [address] [address] Care Team Providers Care Flume Worker Name Role Phone Ruben Reyes Primary Care Provider UnavailFRANCY Pacheco Unavailable [phone] Allergies No Known Allergies REASON FOR VISIT 4wk Medications Medication SIG (Take, Route, Frequency, Duration) Notes Start Date End Date Status Rosuvastatin Calcium 5 MG 1 tablet Orall y Once a day Active Diclofenac Sodium 1 % as directed Creative Intern ally twice daily for 30 days 10/06/2023 Active Pantoprazole Sodium 40 MG 1 tablet Orall y Once a day Active Levothyroxine Sodium 100 MCG 1 tablet in the morning on an empty stomach Orally Once a day Active Vital Signs Weight 242.7 lbs 11/15/2023 Height 6ft in 11/15/2023 BMI 32.91 kg/m2 11/15/2023 Heart Rate 60 /min 11/15/2023 Blood pressure systolic 138 mm Hg 11/15/19 24 Blood pressure diastolic 80 mm Hg 024 Temperature 97.2 degrees Fahrenheit 11/15/19 24 Respiratory Rate 16 /min 11/15/2023 Encounters Encounter Location Date Provider Diagnosis [facility] [address] [address] 11/15/2023 FRANCY GRAY Plantar fasciitis of left foot M72.2 ; Equinus contracture of left ankle M24.572 ; Pain in right foot M79.671 and Pain in left foot M79.672 Assessments Encounter Date Diagnosis (ICD Code) Assessment Notes Treatment Notes Treatment Clinical Notes [...] fascia and the Achilles work like a iln system and one will often tighten the [...] Pain in left foot (ICD-10 - M79.672) Plan Of Treatment Treatment Notes Assessment Notes Plantar fasciitis of [...] Notes * Lisandro MORENODOB:1970 (52 yo M)Acc No.[id number]:11/15/2023 Progress Note Patient:Lisandro VERDIN Provider:?Francy Gray DPM :1970???Age:52 Y???Sex:Male Noel e:11/15/2023 Address: [address], [place], [id number] Pcp:Ruben Reyes Subjective: * Chief Complaints: * ???4wk * HPI: ???Constitutional:? This 52 y/o male returns to my [...] review of systems is noncontributory. * Medical History:? * Surgical History:?laparoscop ic cholecystectomy history of evacuation of hematoma history of esophagogastroduodenoscopy colonoscopy * Hospitalization/Major Diagno stic Procedure:?Denies Past Hospitalization * Family History:?Father: maggy nary artery disease, hypertension.?Mother: hypertension, diabetes, kidney disease.?Siblings: sister- diabetes.? 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 * Medications:?TakingRosuvasta tin Calcium 5 MG Tablet 1 tablet Orally [...] reviewed and reconciled with the patient * Allergies:?N.K.D.A.no[Allerg ies Verified] Objective: * Vitals:?Wt:242.7lbs, Ht: 6ft , BMI:32.91Index, HR:60/min, BP:138/80mm Hg, Temp:97.2F, RR:16/min, Ht-cm: 182.88, Wt-k.09 kg. * Examination: ???General Examination: ???GENERAL: Patient appears well nourished, with NAD. ?VASCULAR: [...] rectus foot ?SHOES: sandals. Assessment: * Assessment: 1.?Plantar fasciitis of left foot - M72.2 (Primary)?2.?Equinus contracture of left ankle - M24.572?3.?Pain in right foot - M79.671?4.?Pain in left foot - M79.672? Plan: * Treatment: * Procedure Codes:? * Follow Up:?6 Weeks * Billing Information: * Visit Code:? 23471 Office Visit, Est Pt., Level 3. * Procedure Codes:? * Sign off status: Completed true * Provider:?Francy Gray DPM Date:? 11/15/2023 Generated for Elizabeth arellano/Joselyn/Abdoulitting on:?04/10/2024 09:20 AM EST History and Physical Notes * HPI (History [...]
--- OUTSIDE RECORDS SUMMARY | 2024-04-10 09:20 | XMS_ITS ---
Author Organization [facility] Address [address] [address] Care Team Providers Care Parts Runner Name Role Phone Ruben Reyes Primary Care Provider Unavailab FRANCY Padilla [phone] REASON FOR VISIT 6wk Encounters Encounter Location Date Provider Diagnosis [facility] [address] [address] 12/22/2023 FRANCY GRAY Plan Of Treatment No Information Progress Notes * Lisandro MORENODOB:1970 (53 yo M)Acc No.[id number]:12/22/2023 Progress Note Patient:?Lisandro MORENO Provider:?Francy Gray DPM :1970???Age:52 Y???Sex:Male Noel e:12/22/2023 Address: [address] [id number] Pcp:Ruben Reyes Subjective: * Chief Complaints: * ???1. 6wk. * Medical History:? Objective: * Vitals:? Assessment: Plan: * Treatment: * Billing Information: * Visit Code:? * Procedure Codes:? * Electronic signature of GABE GRAY D.P.M on 04/10/2024 at 09:20 AM EST Sign off status: Pending * Provider:?Francy Gray DPM Date:? 12/22/2023 Generated for Elizabeth arellano/Joselyn/eTransmitting on:?04/10/2024 09:20 AM EST
--- OUTSIDE RECORDS SUMMARY | 2024-04-10 09:20 | XMS_ITS ---
Author Organization [facility] Address [address] [address] Care Team Providers Care Chairman & Co Founder Name Role Phone Amy Ruben Primary Care Provider UnavailFRANCY Pacheco Unavailable [phone] Allergies No Known Allergies REASON FOR VISIT PCP referral for plantar fasciitis Medications Medication SIG (Take, Route, Frequency, Duration) Notes Start Date End Date Status Rosuvastatin Calcium 5 MG 1 tablet Orall y Once a day Active Diclofenac Sodium 1 % as directed Oyster Floater ally twice daily for 30 days 10/06/2023 Active Pantoprazole Sodium 40 MG 1 tablet Orall y Once a day Active Levothyroxine Sodium 100 MCG 1 tablet in the morning on an empty stomach Orally Once a day Active Problems Problem Type SNOMED Code ICD Code Onset Dates Problem Status W/U Status Risk Notes Problem 033860172 Equinus contracture of left ankle (M24.572) Active confirmed Vital Signs Weight 240.6 lbs 10/06/2023 Height 6ft in 10/06/2023 BMI 32.63 kg/m2 10/06/2023 Heart Rate 74 /min 10/06/2023 Temperature 97.4 degrees Fahrenheit 10/06/19 24 Respiratory Rate 16 /min 10/06/2023 Encounters Encounter Location Date Provider Diagnosis [facility] [address] [address] 10/06/2023 FRANCY GRAY Plantar fasciitis of left [...] foot (ICD-10 - M79.672) Plan Of Treatment Medication Medication Name Sig Start Date Stop Date Notes Diclofenac Sodium 1 % as directed Oyster Floater ally twice daily for 30 days 10/06/2023 [...] Up: 4 Weeks, Reason: Progress Notes * TIFFANIEGagandeep DUMONTsaidaDOB:1970 (52 yo M)Acc No.[id number]:10/06/2023 Consult note Patient:?Lisandro MORENO Provider:Danish Gray DPM :1970???Age:52 Y???Sex:Male Noel e:10/06/2023 Address:[address], [place], [id number] Pcp:Ruben Reyes Subjective: * Chief Complaints: * ???PCP referral for plantar fasciitis * HPI: ???Constitutional:? 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 * Medications:?TakingRosuvasta tin Calcium 5 MG Tablet [...] patient * Allergies:?N.K.D.A.no[Allerg ies Verified] Objective: * Vitals:?Wt:240.6lbs, Ht: 6ft , BMI:32.63Index, HR:74/min, Temp:97.4F, RR:16/min, Ht-cm: 182.88, Wt-k.13 kg. * Examination: ???General Examination: ???GENERAL: Patient [...] ?SHOES: sandals. Therapeutic Interventions: Assessment: * Assessment: 1.?Plantar fasciitis of left foot - M72.2 (Primary)?2.?Equinus contracture of left ankle - M24.572?3.?Pain in right foot - M79.671?4.?Pain in left foot - M79.672? Plan: * Treatment: Notes: This is an [...] The patient is in agreement with this plan.??2.?Pain in right foot?Imaging: X ray : Foot, [...] at the plantar calcaneus. No fracture noted. 3.?Pain in left foot?Imaging: X ray : Foot, [...] at the plantar calcaneus. No fracture noted. 4.?Others? Start Diclofenac Sodium Gel, 1 %, as directed, Externally, twice daily, 30 days, 60, Refills 1. ? * Procedure Codes:?50828 X-RAY EXAM OF FOOT 3 Views, Units: 2.00 , Modifiers: [place] 54702 X-RAY EXAM OF FOOT 3 Views, Modifiers: RT * Follow Up:?4 Weeks * Billing Information: * Visit Code:? 35953 Office Visit, New Pt., Level 3. * Procedure Codes:? 29978 X-RAY EXAM OF FOOT 3 Views. Units: 2.00. Modifiers: [place] 25911 X-RAY EXAM OF FOOT 3 Views. Modifiers: RT * Sign off status: Completed true * Provider:?Francy Gray DPM Date:? 10/06/2023 Generated for Elizabeth arellano/Joselyn/Abdoulitting on:?04/10/2024 09:20 AM [...]
--- OUTSIDE RECORDS SUMMARY | 2024-04-10 09:20 | XMS_ITS | Patient Health Record ---
Author Organization [facility] Address [address] [address] Care Team Providers Care Heading And Priming Operator Name Role Phone Ruben Reyes Primary Care Provider UnavailBITA Pacheco Unavailable [phone] Allergies No Known Allergies Reason For Referral No Information Medications Medication SIG (Take, Route, Frequency, Duration) Notes Start Date End Date Status Rosuvastatin Calcium 5 MG 1 tablet Orall y Once a day Active Diclofenac Sodium 1 % as directed Program/Music Director ally twice daily for 30 days 10/06/2023 Active Pantoprazole Sodium 40 MG 1 tablet Orall y Once a day Active Levothyroxine Sodium 100 MCG 1 tablet in the morning on an empty stomach Orally Once a day Active Problems Problem Type SNOMED Code ICD Code Onset Dates Problem Status W/U Status Risk Notes Problem [id number] Equinus contracture of left ankle (M24.572) Active confirmed Vital Signs Heart Rate 60 /min 11/15/2023 Temperature 97.2 degrees Fahrenheit 11/15/2023 Respiratory Rate 16 /min 11/15/2023 Blood pressure diastolic 80 mm Hg 11/15/2023 Height 6ft in 11/15/2023 Blood pressure systolic 138 mm Hg 11/15/2023 Weight 242.7 lbs 11/15/2023 BMI 32.91 kg/m2 11/15/2023 Encounters Encounter Location Date Provider Diagnosis [facility] [address] [address] 10/06/2023 BITA LUNA Plantar fasciitis of left foot M72.2 ; Equinus contracture of left ankle M24.572 ; Pain in right foot M79.671 and Pain in left foot M79.672 [facility] [address] [address] 11/15/2023 BITA LUNA Plantar fasciitis of left [...] foot (ICD-10 - M79.672) Plan Of Treatment Pending Test Test Name Order Date X ray : Foot, left 3v 10/06/2023 X ray : Foot, right 3v 10/06/2023 Insurance Providers Payer Name Payer Address Payer Phone Subscriber Number Group Number Insured Name Patient Relationship to Insured Coverage Start Date Coverage End Date [facility] [address] [place] [address] [id number] Lisandro Paige Self - patient is the insured Medical (General) History Medical History History ICD Code history of PFT's diverticulosis hematoma gastroesophageal reflux disease (GERD) renal calculi fatty liver thyroid disease elevated cholesterol bilateral plantar fasciitis vitamin D deficiency obesity nonalcoholic fatty liver elevated serum creatinine elevated bilirubin hypothyroidism hyperlipidemia psoriasis + COVID 202 COVID vaccinated X 2 (Pfizer) Surgical History Surgery Date(Month/Year) laparoscopic cholecystectomy history of evacuation of hematoma history of esophagogastroduodenoscopy colonoscopy
== END 2024-04-10 10:38 | disposition home or self-care (01) ==
PROVIDERS: PCP Nurse Practitioner Family; Visit Provider Nurse Practitioner Family
DX: Z00.00 Encounter for general adult medical examination without abnormal findings (principal); Z68.33 Body mass index [BMI] 33.0-33.9, adult; E66.811 Obesity, class 1; E66.09 Other obesity due to excess calories; E55.9 Vitamin D deficiency, unspecified; E78.2 Mixed hyperlipidemia; E03.9 Hypothyroidism, unspecified; K76.0 Fatty (change of) liver, not elsewhere classified; F43.9 Reaction to severe stress, unspecified; M54.9 Dorsalgia, unspecified; K64.0 First degree hemorrhoids; L40.9 Psoriasis, unspecified; Z23 Encounter for immunization

== ENCOUNTER → 2024-04-10 08:57 | Outpatient (BNVA) | payer OTHER, SELFPAY | PROVIDERS: PCP Nurse Practitioner Family; Visit Provider Nurse Practitioner Family | DX: Z00.00 Encounter for general adult medical examination without abnormal findings (principal); Z23 Encounter for immunization; E66.811 Obesity, class 1; E66.09 Other obesity due to excess calories; Z68.33 Body mass index [BMI] 33.0-33.9, adult; E55.9 Vitamin D deficiency, unspecified; E78.2 Mixed hyperlipidemia; E03.9 Hypothyroidism, unspecified; K76.0 Fatty (change of) liver, not elsewhere classified; F43.9 Reaction to severe stress, unspecified; M54.9 Dorsalgia, unspecified; K64.0 First degree hemorrhoids; L40.9 Psoriasis, unspecified | CPT/HCPCS: 90471; 90656; 96127 ==

== ENCOUNTER 2024-04-10 10:47 | Outpatient (REF) | payer OTHER, SELFPAY ==
[2024-04-10 15:08] LABS: Estimated Average Glucose 111 mg/dL; Hemoglobin A1C 145.4893 umol/L; Hemoglobin A1c % 5.5 % (<6.0); Total Hemoglobin (HGBA1C) 4005.3281 umol/L
[2024-04-10 15:13] LABS: Creatinine Urine 279.16 mg/dL
[2024-04-10 15:46] LABS: Folate 7.4 ng/mL (> or = 4.0); Vitamin B12 454 pg/mL (200-900)
[2024-04-10 16:23] LABS: Alanine Aminotransferase 62 U/L (0-40); Albumin Level 4.6 g/dL (3.5-5.0); Anion Gap 12 (12-20); Aspartate Amino Transferase 38 U/L (5-37); Bilirubin Total 1.5 mg/dL (0.0-1.0); Blood Urea Nitrogen 17 mg/dL (9-16); Calcium 9.5 mg/dL (8.4-10.2); Carbon Dioxide 28 mmol/L (22-29); Chloride 109 mmol/L (96-108); Cholesterol 153 mg/dL (<200); Estimated Glomerular Filt Rate > 60; Glucose Random 68 mg/dL (60-115); HDL Cholesterol 54 mg/dL (>40); LDL Cholesterol Calculated 73 mg/dL (<100); Potassium 3.8 mmol/L (3.3-5.1); Sodium 145 mmol/L (135-145); TSH reflex Free T4 2.87 uIU/mL (0.32-4.0); Total Protein 7.6 g/dL (6.5-8.0); Triglycerides 132 mg/dL (<150); Vitamin D 25-OH Total 43.1 ng/mL (>30)
[2024-04-10 17:14] LABS: Hematocrit 46.3 % (42.0-52.0); Hemoglobin 15.4 g/dl (14.0-18.0); Mean Corpuscular HGB Conc 33.3 g/dl (31.0-36.0); Mean Corpuscular Hemoglobin 30.4 pg (27.0-33.0); Mean Corpuscular Volume 91.3 fL (80.0-98.0); Mean Platelet Volume 9.8 fL (9.4-12.4); Platelet Count 297 X10*3/uL (160-400); Red Blood Count 5.07 X10*6/uL (4.60-5.80); Red Cell Distribution Width 12.8 % (11.0-16.0); White Blood Count 6.2 X10*3/uL (4.8-10.8)
[2024-04-10 17:16] LABS: Alkaline Phosphatase 72 U/L (39-117)
[2024-04-15 15:54] LABS: PSA, Ultra Sensitive 0.38 ng/mL
== END 2024-04-10 10:48 | disposition home or self-care (01) ==
LOC: HO.WFDLDS 10:47
PROVIDERS: Visit Provider Nurse Practitioner Family
DX: K76.0 Fatty (change of) liver, not elsewhere classified (principal); E03.9 Hypothyroidism, unspecified; E78.5 Hyperlipidemia, unspecified; E55.9 Vitamin D deficiency, unspecified; Z12.5 Encounter for screening for malignant neoplasm of prostate; Z13.1 Encounter for screening for diabetes mellitus
CPT/HCPCS: 36415; 80053; 80061; 82043; 82306; 82570; 82607; 82746; 83036; 84153; 84443; 85027

== ENCOUNTER → 2024-05-12 15:57 | Outpatient (BNV) | payer OTHER, SELFPAY ==
--- NOTE | 2024-05-12 15:58 | MHC.PC.OV ---
Intake Visit Reasons: Amb Documentation Allergies No Known Allergies [No Known Allergies*] Allergy (Verified 04/10/24 09:41) Tobacco use date assessed: 09/17/23 Dental Screening Dental Screen Date: 09/17/23 HPI HPI Comments History of Present Illness Details 53-year-old here today with complaints of a sore throat, sore lesions in his mouth, left dental pain. Started about 1 week ago. He was away on vacation and had cold-like symptoms. After these resolved we started with very painful ulcers in his now. He did go to the dentist who prescribed him amoxicillin for presumed dental infection. He has been using a prescribed mouthwash from the dentist what seems to bar his mouth. He denies any fever or chills. He reports that it was hard to eat or drink due to the pain. He was under a lot of stress which is limiting his ability to rest and recuperate. Exam Awake alert oriented, tired appearing Speaking in full sentences Pharynx mildly erythematous, no exudate, uvula midline, managing secretions, no hot potato voice, inside the buccal mucosa is superficial ulceration Positive AC adenopathy bilat Plan Prescribe acyclovir. Advised to take with food to reduce GI upset. Use salt water gargles, baking soda gargles can even rinse with Mylanta. If symptoms get worse or do not improve, advised to follow up. Educated to complete antibiotics prescribed by a dentist and follow up with dentist as scheduled. PFSH Medical History History of PFTs Diverticulosis Hematoma GERD (gastroesophageal reflux disease) Renal calculi Fatty liver Thyroid disease Elevated cholesterol Surgical History Hx laparoscopic cholecystectomy (01/04/23) History of colonoscopy History of evacuation of hematoma History of esophagogastroduodenoscopy (EGD) Family History Father CAD (coronary artery disease) Mother Hx of colon cancer, stage IV Social History Household Members: Spouse and Children Housing: House Are you a primary healthcare management consultant to a significant other at home: No Do you presently have visiting nurse or other home services: No Alcohol intake: current Alcohol intake frequency: holidays/special occasions only Patient Tobacco Use Status: Never used Tobacco e-Cigarette/Vaping Use: Never Used Second Hand Smoke Exposure: No service: No Current occupational status: employed 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 Clint Kelley, Marielle Velazquez, Yoan Sampson and colleagues, with an educational jose e from [employer]. 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 Medications: New acyclovir 800 mg PO TID 21 tabs 0RF
== END ==
PROVIDERS: PCP Nurse Practitioner Family; Visit Provider Nurse Practitioner Family
DX: K12.0 Recurrent oral aphthae (principal); F43.9 Reaction to severe stress, unspecified
CPT/HCPCS: 99213

== ENCOUNTER 2024-09-21 09:50 | Outpatient (AMB) | payer OTHER, SELFPAY ==
--- NOTE | 2024-09-21 09:55 | A.OFFVIS_ITS ---
Vital Signs 09/21/24 09:56 Height 6 ft Weight 243 lb BMI 33.0 BP 117/81 Blood Pressure Location Lt brachial Position Sitting Pulse 62 Pulse Oximetry (%) 95 Oxygen Delivery Method Room Air Intake Visit Reasons: 6 MO F/U Intake Note: Patient 6 month follow up for Diverticulosis. Patient denies any GI issues for today visit. Gun Stocker Required: No Accompanied by: Self / Same As Patient Allergies No Known Allergies (No Known Allergies*) Allergy (Verified 09/21/24 09:55) Medication List - Last Reconciled 09/21/24 by Tawana Ray MD betamethasone dipropionate 0.05% 1 appl topical BID PRN diclofenac sodium 1% grams topical BID levothyroxine 100 mcg PO DAILY pantoprazole 40 mg PO BID 90 days rosuvastatin (Crestor) 5 mg PO DAILY HPI HPI 6 MO F/U: Details: GI CLINIC VISIT FOR THIS 53-YEAR-OLD MALE FOR FOLLOW-UP OF GERD, ASYMPTOMATIC GALLSTONES AND COLON CANCER SCREENING. Reason:US shows large gallstone, fatty liver and pancreas, + pain 01/04/23 Pt had a Lap Brittany by Dr Matos ?CHRONIC ILLNESSES:?psoriasis, vitamin D deficiency, mixed hyperlipidemia, acquired hypothyroidism, GERD without esophagitis, obesity due to excess calories - BMI 31.0-31.9 in adult, RALPH, elevated bilirubin, substernal chest pain, left flank pain - h/o kidney stones 2009, calculus of gallbladder with biliary obstruction, without cholecystitis, PFT- a mild degree of restrictive pulmonary disorder is noted, which may be related to obesity; no obstructive airway disorder, Echo 08/2017 wnl TODAY'S VISIT: Denies heartburn or dysphagia Denies abdominal pain Pt denies past hx of liver disease or hepatitis. Denies known FH of liver disease Taking azithromycin for bronchitis and will finish tomorrow Pt scheduled for an earlier FU appointment after PCP's message: On 10/11/23 @ 16:18 Miranda Day Wrote To LADONNA Ray Hi [place] patient w/ Dr Ray He has some abnormal labs ferritin, bili, LDH (see September labs). I want him to be evaluated before his March appt Please reach out to patient directly. Or myself should you have questions. Thanks! Miranda LEUNG surgery went well. RUQ pain has resolved since the surgery Denies heartburn or dysphagia PAST VISIT: Has been having intermittent episodes of sharp 6-7/10 RUQ pain since the end of August. First episode 20 min after eating dinner. Pain started in the RUQ and radiated to the epigastrium. Pain became worse on moving. 2nd episode woke him up from sleep and was associated with nausea and cold sweats.Has not had additional episodes since then Pt denies vomiting or fever Has been taking VItamin D every 2-3 days Taking Pantoprazole once a day and takes a 2nd dose prn He was sick with COVID over gi despite vaccination. Denies abdominal pain or GERD symptoms Rare breakthrough symptoms related to diet. Takes Pantoprazole at night and sometimes during the day for breakthrough symptoms. Mother had GB removed a few weeks ago. Not eager to have GB surgery yet. Doing good - no problems Stress test at [facility] and whole body US were good Heartburn is well controlled with the pantoprazole 40 mg twice daily. Had a physical exam 3 weeks ago. Noted burning abdominal pain on the left side which is bouncing all over his body - epigastric/RUQ/LUQ and lower chest shoulders. Pain can vary between burning and stinging. Some days are good and somedays are not so good. Pain resolves at night and able to sleep without any problems. Pain can last all day on some days. Can have intermittent throat irritation Sometimes improves after eating. At times, he does not feel good after eating. His weight has been stable at 232 lb - advised weight reduction of 10-15 lb due to fatty liver ? Stopped Zantac and started having some heartburn. ? Using Omeprazole for the past 4 days and appears to be helping ? Denies dysphagia. ? Finished with antbiotics for a cold followed by cough. ? 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 ? Denies recent change in bowel habits, black stools or rectal bleeding. ? Denies known FH of colon polyps or colon cancer. ? Maternal uncle recently diagnosed with abdominal/liver cancer - primary site is unclear. ? Denies pas issues with anesthesia. ? Denies major cardiac or pulmonary problem ? LABS IN [facility]: 10/30/2018 normal CBC, ? 11/08/18 BUN 8, creatinine 1.47, bilirubin 1.3, AST 21, ALT 26, alkaline phosphatase 69, albumin 4.8 ? 06/2017: Stool for H pylori antigen was negative. ?IMAGING STUDIES:? 09/22/22 ABD US SHOWED: GALLBLADDER: The gallbladder is physiologically distended. There is a single large 3.5 x 2.4 x 2.9 cm nonmobile gallstone present. No evidence of gallbladder wall thickening or pericholecystic fluid. Garrett's sign is negative. COMMON BILE DUCT: Normal in caliber measuring 0.65 cm in diameter. RIGHT KIDNEY: Normal. No hydronephrosis. No renal calculi or focal parenchymal lesions. The kidney measures 10.1 cm in maximum dimension. FREE FLUID: None. US/US abdomen limited IMPRESSION: 1.? Hepatic steatosis with focal fatty sparing around the gallbladder. 2.? Cholelithiasis without evidence of cholecystitis. ?ENDOSCOPIC STUDIES: 01/22/20 COLONOSCOPY SHOWED: ? One small adenomatous polyp was removed ? Moderate diverticulosis seen in the sigmoid colon ? Moderate hemorrhoids on retroflexed exam. ? Plan:? Patient has an appointment on 03/25/20 in the GI Clinic with Tawana Ray M.D.-. ? Repeat Colonoscopy interval based on path results - in 5 years if polyps are adenomatous and 10 years if polyps are hyperplastic. ? Above findings were reviewed with the patient and colon polyps and diverticulosis handouts were given in the discharge area 01/05/19 EGD SHOWED:? Esophagus: GE junction at 40 cms. Two 1 cms healing erosions. Irregular Z line ? - biopsied to check for Rene s. ? Stomach: Moderate diffuse gastric erythema with prominent gastric folds with ? small amount of heme in the stomach - biopsies were obtained from the gastric ? folds and antrum. Grade 2 flap ? valve on retroflexed examination of the cardia. ? Duodenum: Normal bulb and descending duodenum ? Intervention: Biopsies as noted above ? Impression and Post Procedure Diagnosis: ? Endoscopy Findings: ? ESOPHAGUS: Two small healing erosions and irregular Z line ? STOMACH: Diffuse gastritis with prominent gastric folds ? DUODENUM: Normal ? Plan: ? Await pathology results ? Patient has an appointment on 01/27/19 in the GI Clinic with Tawana Ray M.D ? Above findings were reviewed with the patient and GERD and Gastritis handouts ? were provided in the discharge area. ?BIOPSIES SHOWED: ? A. Stomach, biopsies: Reactive gastropathy with background mild chronic ? inactive inflammation; no Helicobacter organisms seen. ? B. Stomach, gastric fold, biopsies: Oxyntic type mucosa with mild chronic ? inactive inflammation; no Helicobacter organism seen. ? C. Esophagus, distal, biopsies: Esophagogastric junctional mucosa with mild ? chronic inflammation; squamous epithelium within normal limits; negative for ? intestinal metaplasia; negative for dysplas PFSH Medical History (Updated 09/21/24 @ 10:23 by Tawana Ray MD) Benign colon polyp History of PFTs Diverticulosis Hematoma GERD (gastroesophageal reflux disease) Renal calculi Fatty liver Thyroid disease Elevated cholesterol Surgical History Hx laparoscopic cholecystectomy (01/04/23) History of colonoscopy History of evacuation of hematoma History of esophagogastroduodenoscopy (EGD) Family History Father CAD (coronary artery disease) Mother Hx of colon cancer, stage IV Social History Household Members: Spouse and Children Both parents involved: No Caregiver staying overnight: No Housing: House Are you a primary adult care manager to a significant other at home: No Do you presently have visiting nurse or other home services: No 75 years or older and lives alone: No Alcohol intake: current Alcohol intake frequency: holidays/special occasions only Patient Tobacco Use Status: Never used Tobacco e-Cigarette/Vaping Use: Never Used Second Hand Smoke Exposure: No service: No Current occupational status: employed 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 Current occupational exposures/hazards: Yes Sexual orientation: Unable to collect Gender identity: Unable to collect Cognitive needs: No Hearing needs: No Vision needs: No Review of Systems Const All systems reviewed & are unremarkable except as noted in HPI and below Physical Exam Vital Signs: Last Vital Signs Pulse 62 09/21/24 09:56 BP 117/81 09/21/24 09:56 Pulse Ox 95 09/21/24 09:56 Oxygen Delivery Method Room Air 09/21/24 09:56 BMI result Body Mass Index 33.0 Const General: healthy appearing and no acute distress Nutritional Appearance: obese Orientation/consciousness: patient oriented x3 Limitations: no limitations HEENT Head: Yes normal to inspection Ears: hearing grossly normal bilaterally Eyes Sclerae: sclerae normal Pupils: Equal, round and reactive pupils present Neck Neck: Yes normal visual inspection Chest Chest palpation & inspection: normal inspection of the chest Resp Effort & Inspection: normal respiratory effort Auscultation: clear to auscultation bilaterally Cardio Palpation: normal PMI Rate: regular rate Rhythm: regular rhythm Heart sounds: S1 normal heart sound present, S2 normal heart sound present and no murmurs GI Palpation (GI): Soft to palpation, nontender and No hepatosplenomegaly present Auscultation: normal bowel sounds Rectal Exam - Male: Yes deferred Skin General skin exam: no rashes or lesions noted Neuro General: patient oriented x3, gait normal and moves all extremities Cranial nerves: Yes Equal, round and reactive pupils present Psych Appearance: grossly normal Mental Status: mental status grossly normal Assessment & Plan Assessment & Plan (1) GERD without esophagitis: Comment: Continue Pantoprazole 40 mg twice daily Code(s): K21.9 - Gastro-esophageal reflux disease without esophagitis Category: Medical (2) History of colon polyps: Comment: 01/22 one small tubular adenoma was removed during colonoscopy. Repeat colonoscopy is advised in 5 years (due in 01/27) Code(s): Z86.010 - Personal history of colon polyps Category: Medical (3) NAFL (nonalcoholic fatty liver): Code(s): K76.0 - Fatty (change of) liver, not elsewhere classified Category: Medical (4) Elevated LFTs: Code(s): R79.89 - Other specified abnormal findings of blood chemistry Category: Medical Plan 53 YM with psoriasis, vitamin D deficiency, mixed hyperlipidemia, acquired hypothyroidism, GERD without esophagitis, obesity due to excess calories - BMI 32.3 in adult, RALPH, elevated bilirubin, substernal chest pain, left flank pain - h/o kidney stones 2009, calculus of gallbladder without cholecystitis, Echo 08/2017 wnl. Patient is followed in GI for non-cardiac chest pain associated with symptoms of heartburn, fatty liver and possible fat in the pancreas and asymptomatic gallstone. Non-cardiac chest pain is likely related to esophageal spasm associated with the GERD. Symptoms improved with ranitidine 150 mg at bedtime. He noted recurrent heartburn on stopping ranitidine since it was not covered by his insurance. Upper endoscopy showed gastritis and two 1 cms healing esophageal erosions and no Rene's. Omeprazole 20 mg daily was prescribed and patient has noted breakthrough symptoms. Fatty liver with suspected fat in the pancreas likely related to obesity. Recent LFTs were normal. Patient was advised to work on weight reduction. Patient was advised to increase pantoprazole to 40? mg twice daily and decrease vitamin-D to every other day due to high levels in the past 05/09/20 Pt called and abdominal US results were reviewed with him US reviewed with radiology - gallstone size is 2.5 cms (increased from 1.75 cms in 2019. He may need a prophylactic Lap Brittany if gallstone is > 3 cms due to increased risk of GB cancer associated with large gallstones. Pt stated he is feeling better - has been trying to take PPI twice a day which has helped (sometimes he forgets to take it) 09/2021 ABD US SHOWED: Gallstones. Echogenic liver probably representing fatty infiltration.? Largest gallstone is almost 3 cms. 10/09/22 Intermittent episodes of RUQ pain and gallstone size increased to 3.5 cms 01/04/23 Pt had a Lap Brittany by Dr Matos 03/11/23 Abd pain resolved after Lap brittany 11/26/23 Pt seen for evaluation of elevated TB, ferritin and LDH. Pt denies past or family hx of liver disaese. 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 Mild elevation of ALT, ferritin, and LDH likely due to steatohepatitis. I will check iron studies, hepatitis serologies, genetic testing for hemoc hromatosis and abd US with elastography to rule out cirrhosis 03/23/24 Elevated LFTs - likely fatty liver related to obesity and pt advised to work on weight loss. Increase in total bilirubin with predominent increase in indirect bili - likely due to Gilbert's syndrome Hepatitis serologies were negative except immunity to hepatitis-B - due to past infection/immunization Normal iron studies with ferritin of 241 Genetic screen for hemochromatosis was negative. Liver fibrosis score of 0.24, liver fibrosis stage F0-F1 Abdominal ultrasound with elastography showed: 1. There is generalized increase in hepatic echotexture, consistent with fatty infiltration or hepatocellular disease. Please correlate clinically. No focal hepatic mass or intrahepatic biliary dilatation is seen. 2. Elastography: Liver elastography measurements are consistent with a minimal risk for clinically significant liver fibrosis (METAVIR Stage F0-F1). 3. The gallbladder is surgically absent. 09/21/24 Pt advised to schedule a colonoscopy for follow-up of colon polyps. He would like to schedule in January after he returns from a cruise to the [facility] FU in 6 months - scheduled 03/22/25. Orders: Orders Colonoscopy - GI Use Only Today K63.5 - Polyp of colon, Z86.010 - Personal history of colon polyps JING Reflex Titer and Pattern Today R79.89 - Other specified abnormal findings of blood chemistry Immunoglobulin A Today R79.89 - Other specified abnormal findings of blood chemistry Smooth Muscle Antibody Today R79.89 - Other specified abnormal findings of blood chemistry Transglutaminase IgA Today R79.89 - Other specified abnormal findings of blood chemistry Ceruloplasmin Today R79.89 - Other specified abnormal findings of blood chemistry Medications: New bisacodyl (Dulcolax (bisacodyl)) Take 4 tablets at 12 pm the day before colonoscopy appointment 20 mg (4 x 5 mg) PO ONCE 4 tabs 0RF colon prep 1 day polyethylene glycol 3350 (Miralax) Mix Miralax with 64 oz(8 cups) of Crystal light. Take 2 tablets of Dulcolax qt 12 pm. Wait to have your 1st bowel movement, then begin drinking Miralax. Drink a glass of Miralax every 10-15 minutes until you are finished. You will drink at least another 4 cups of clear liquid of your choice over the next 2 hours. Please drink as many clear liquids as possible You may have clear liquids up to four hours before your procedure 17 grams PO DAILY 238 grams 0RF colon prep 1 day Coding Level of Care Code Est Pt Level 4 (91284) Diagnoses GERD without esophagitis K21.9 History of colon polyps Z86.010 NAFL (nonalcoholic fatty liver) K76.0 Elevated LFTs R79.89 Time Spent (min) 18
[2024-09-21 09:56] VITALS: BP 117/81; PULSE 62; O2SAT 95; BMI 33.0
--- OUTSIDE RECORDS SUMMARY | 2024-09-21 10:52 | XMS_ITS | Encounter Summary ---
Author Organization [facility] Address [place] [address] Phone Care Team Providers Care Cup Trimming Machine Operator Name Role Phone Srikanth Sanchez NP Primary Care Provider [phone] Encounter Details Date Type Department Care Team (Late st Contact Info) Description 11/11/2022 Documentation Only [facility] [address] [place] [phone] Brenton Ayala MD [address] [place] [phone] Social History Tobacco Use Types Packs/Day Years Used Date Smoking Tobacco: Never Assessed Sex and Gender Information Value Date Recorded Sex Assigned at Not on file Legal Sex Male 4:23 PM EDT Gender Identity Not on file Sexual Orientation Not on file documented as of this encounter Plan of Treatment Upcoming Encounters Date Type Department Care Team (Late st Contact Info) Description 11/20/2024 2:00 PM EDT Office Visit [facility] [address] [place] [phone] Daniel Mckeon MD [address] [place] [address] documented as of this encounter Visit Diagnoses Not on filedocumented in this encounter Care Teams Cup Trimming Machine Operator Relationship Specialty [place] [address] [place] [phone] PCP - General Nurse Practitioner 09/22/22 documented as of this encounter
== END 2024-09-21 10:26 | disposition home or self-care (01) ==
LOC: HO.HGI 09:51
PROVIDERS: PCP Nurse Practitioner Family; Visit Provider Internal Medicine Gastroenterology
DX: K21.9 Gastro-esophageal reflux disease without esophagitis (principal); Z86.0100 Personal history of colon polyps, unspecified; K76.0 Fatty (change of) liver, not elsewhere classified; R79.89 Other specified abnormal findings of blood chemistry
CPT/HCPCS: 99214

== ENCOUNTER 2024-10-13 07:34 | Outpatient (REF) | payer OTHER, SELFPAY ==
[2024-10-13 08:55] LABS: Alanine Aminotransferase 39 U/L (0-40); Albumin Level 4.9 g/dL (3.5-5.0); Alkaline Phosphatase 66 U/L (39-117); Anion Gap 13 (12-20); Aspartate Amino Transferase 32 U/L (5-37); Blood Urea Nitrogen 23 mg/dL (9-16); Calcium 9.4 mg/dL (8.4-10.2); Carbon Dioxide 25 mmol/L (22-29); Chloride 107 mmol/L (96-108); Cholesterol 174 mg/dL (<200); Estimated Glomerular Filt Rate 48; HDL Cholesterol 56 mg/dL (>40); Potassium 4.0 mmol/L (3.3-5.1); Sodium 141 mmol/L (135-145); Total Protein 7.4 g/dL (6.5-8.0); Triglycerides 120 mg/dL (<150)
[2024-10-13 09:33] LABS: Free T4 (Free Thyroxine) 1.11 ng/dL (0.71-1.85)
[2024-10-16 17:23] LABS: Immunoglobulin A 193 mg/dL (47-310)
[2024-10-21 08:09] LABS: Anti Nuclear Antibody Screen POSITIVE (NEGATIVE); Anti Nuclear Antibody Titer 1:320 titer
== END 2024-10-13 07:35 | disposition home or self-care (01) ==
LOC: HO.LAB 07:34
PROVIDERS: Absent Provider Internal Medicine Gastroenterology; PCP Nurse Practitioner Family; Visit Provider Nurse Practitioner Family
DX: R79.89 Other specified abnormal findings of blood chemistry (principal); E03.9 Hypothyroidism, unspecified; E78.5 Hyperlipidemia, unspecified
CPT/HCPCS: 36415; 80053; 80061; 82390; 82784; 84439; 84443; 86015; 86038; 86039; 86364

== ENCOUNTER 2024-10-17 08:03 | Outpatient (AMB) | payer OTHER, SELFPAY ==
--- OUTSIDE RECORDS SUMMARY | 2023-12-22 05:15 | XMS_ITS ---
Author Organization [facility] Address [address] [address] Care Team Providers Care Master Control Technician Name Role Phone Ruben Reyes Primary Care Provider UnavailBITA Pacheco [phone] REASON FOR VISIT 6wk Encounters Encounter Location Date Provider Diagnosis [facility] [address] [address] 12/22/2023 BITA LUNA Plan Of Treatment No Information Progress Notes * Lisandro MORENODOB:1970 (53 yo M)Acc No.[id number]:12/22/2023 Progress Note Patient: Lisandro FARIA Provider: Cortney Luna DPM :1970 A ge:52 Y S ex:Male Date:12/22/2023 Address: [address], [id number] Pcp:Ruben Reyes Subjective: * Chief Complaints: * 1 . 6wk. * Medical History: Objective: * Vitals: Assessment: Plan: * Treatment: * Billing Information: * Visit Code: * Procedure Codes: * Electronic signature of GABE LUNA D.P.M on 10/17/2024 at 08:06 AM EDT Sign off status: Pending * Provider: Cortney Luna DPM Date: 12/22/2023 Generated for Elizabeth arellano/Joselyn/eTransmitting on: 0 10/17/2024 08:06 AM EDT
--- OUTSIDE RECORDS SUMMARY | 2024-10-17 08:06 | XMS_ITS | Encounter Summary ---
Author Organization [facility] Address [place] [address] Phone Care Team Providers Care Beam Carrier Hauler Pusher Name Role Phone Srikanth Sanchez NP Primary Care Provider [phone] Encounter Details Date Type Department Care Team (Late st Contact Info) Description 11/11/2022 Documentation Only [facility] [address] [place] [phone] Brenton Ayala MD [address] [place] [phone] Social History Tobacco Use Types Packs/Day Years [...] Visit [facility] [address] [place] [phone] Daniel Mckeon MD [address] [place] [address] documented as of this encounter Visit Diagnoses Not on filedocumented in this encounter Care Teams Beam Carrier Hauler Pusher Relationship Specialty [place] [address] [place] [id number] PCP - General Nurse Practitioner 09/22/22 documented as of this encounter
--- OUTSIDE RECORDS SUMMARY | 2024-10-17 08:06 | XMS_ITS | Clinical Summary ---
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 Name Role Phone Miranda Day Primary Care Provider [phone] Encounters Date Type Department Care Team Description 08/08/2024 7:21 AM EDT - 08/08/2024 11:59 PM EDT Hospital Encounter [facility] Ultrasound [address] [place] [address] Occupational exposure to air contaminants Discharge Disposition: Home or Self Care 08/08/2024 7:21 AM EDT - 08/08/2024 11:59 PM EDT Hospital Encounter [facility] Ultrasound [address] [place] [address] Occupational exposure to air contaminants Discharge Disposition: Home or Self Care 08/08/2024 7:21 AM EDT - 08/08/2024 11:59 PM EDT Hospital Encounter [facility] Ultrasound [address] [place] [address] Occupational exposure to air contaminants Discharge Disposition: Home or Self Care 08/08/2024 7:20 AM EDT - 08/08/2024 11:59 PM EDT Hospital Encounter [facility] Ultrasound [address] [place] [address] Occupational exposure to air contaminants Discharge Disposition: Home or Self Care 08/08/2024 7:20 AM EDT - 08/08/2024 11:59 PM EDT Hospital Encounter [facility] CT Scan [address] [place] [address] Occupational exposure to air contaminants Discharge Disposition: Home or Self Care from Last 3 Months Social History Tobacco Use Types Packs/Day Years Used Date Smoking Tobacco: Never Assessed Sex and Gender Information Value Date Recorded Sex Assigned at Male 07/06/2024 9:17 AM EDT Legal Sex Male 11:07 AM EDT Gender Identity Male 07/06/2024 9:17 AM EDT Sexual Orientation Straight 07/06/2024 9: 17 AM EDT Plan of Treatment Health Maintenance Due Date Last Done Comments Hepatitis B Vaccines (1 of 3 - 19+ 3-dose series) 12/28/1990 Pneumococcal Vaccine: 50+ Years (1 of 1 - PCV) 12/28/2021 Zoster Vaccines (1 of 2) 12/28/2021 COVID-19 Vaccine (4 - season) 2023 04/15/2021, 04/24/2020, 04/03/2020 Cholesterol Screening (Lipid Panel) 07/05/2024 Colorectal Cancer Screening: Colonoscopy 07/05/2024 Depression Screening 07/05/2024 HIV Screening 07/05/2024 Hepatitis C Screening 07/05/2024 Social Influencers of Health Screening 07/05/2024 Influenza Vaccine (#1) 2024 , 01/22/2023, 06/16/2019, Additional history exists DTaP,Tdap,and Td Vaccines (3 - Td or Tdap) 03/10/2033 03/10/2023, 06/08/2012 HIB Vaccines Aged Out No longer eligi ble based on patient's age to complete this topic HPV Vaccines Aged Out No longer eligi ble based on patient's age to complete this topic Hepatitis A Vaccines Aged Out No long er eligible based on patient's age to complete this topic IPV Vaccines Aged Out No longer eligi ble based on patient's age to complete this topic MMR Vaccines Aged Out No longer eligi ble based on patient's age to complete this topic Meningococcal ACWY Vaccine Aged Out N o longer eligible based on patient's age to complete this topic Meningococcal B Vaccine Aged Out No l onger eligible based on patient's age to complete this topic RSV Immunization Patients Under 20 months Aged Out No longer eligible based on patient's age to complete this topic Varicella Vaccines Aged Out No longer eligible based on patient's age to complete this topic Procedures Procedure Name Priority Date/Time Associated Diagnosis Comments PROSTATE SPECIFIC ANTIGEN SCREEN Routine 08/08/2024 9:30 AM EDT Special screening, prostate cancer US PELVIS NON OB LIMITED OR FOLLOWUP Routine 08/08/2024 9:22 AM EDT Occupational exposure to air contaminants US SCROTUM AND CONTENTS Routine 08/08/2024 8:22 AM EDT Occupational exposure to air contaminants US ABDOMEN COMPLETE Routine 08/08/2024 8:22 AM EDT Occupational exposure to air contaminants US HEAD NECK SOFT TISSUE Routine 08/08/2024 8:22 AM EDT Occupational exposure to air contaminants CT LUNG SCREENING Routine 08/08/2024 7:2 9 AM EDT Occupational exposure to air contaminants from Last 3 Months Results * Prostate specific antigen screen (08/08/2024 9:30 AM EDT) PSA 0.64 0.00 - 4.00 ng/mL LAB CHEMISTRY METHOD 08/08/2024 11:18 AM EDT [facility] Blood Venous blood specimen / Unknown Venipuncture / Unknown 08/08/2024 9:30 AM EDT 08/08/2024 9:54 AM EDT Narrative [facility] - 08/08/2024 11:18 AM EDT The Siemens Advia Centaur Chemiluminescent Immunoassay is used. Results obtained with different assay methods or kits cannot be used interchangeably. Results cannot be interpreted as absolute evidence of the presence or absence of malignant disease. us Neha Reich MD LAB BLOOD ORDERABLES Final Resul t [facility] [address] [place] [address], [place] [phone] * US Pelvis Non OB Limited or Followup (08/08/2024 9:22 AM EDT) Anatomical Region Laterality Modality Body, Pelvis Ultrasound 08/08/2024 2:30 PM EDT Impressions 08/08/2024 2:33 PM EDT No suspicious abnormality of the urinary bladder. 14 mL in the bladder after voiding -------- FINAL REPORT -------- Dictated By: Aly Montes De Oca Dictated Date: 08/08/2024 14:30 ET Assigned Physician: Aly Montes De Oca Reviewed and Electronically Signed By: Aly Montes De Oca Signed Date: 08/08/2024 14:33 ET Workstation ID: [id number] Transcribed By: Self Edit Transcribed Date: 08/08/2024 14:30 ET Narrative 08/08/2024 2:33 PM EDT EXAM: BLADDER ULTRASOUND INDICATION: Vest Presser screening program. COMPARISON: None available. FINDINGS: ULTRASOUND OF THE BLADDER. BLADDER: No focal abnormality in the bladder. No focal bladder wall thickening. No mass. No calculus. Color mapping demonstrates bilateral ureteral jets Pre-void volume: 133 mL Post void volume: 14 mL in the bladder after voiding The prostate does not appear significantly enlarged. Procedure Note Aly Montes De Oca MD - 08/08/2024 EXAM: BLADDER ULTRASOUND INDICATION: Vest Presser screening program. COMPARISON: None available. FINDINGS: ULTRASOUND OF THE BLADDER. BLADDER: No focal abnormality in the bladder. No focal bladder wall thickening. No mass. No calculus. Color mapping demonstrates bilateral ureteral jets Pre-void volume: 133 mL Post void volume: 14 mL in the bladder after voiding The prostate does not appear significantly enlarged. IMPRESSION: No suspicious abnormality of the urinary bladder. 14 mL in the bladder after voiding -------- FINAL REPORT -------- Dictated By: Aly Montes De Oca Dictated Date: 08/08/2024 14:30 ET Assigned Physician: Aly Montes De Oca Reviewed and Electronically Signed By: Aly Montes De Oca Signed Date: 08/08/2024 14:33 ET Workstation ID: [id number] Transcribed By: Self Edit Transcribed Date: 08/08/2024 14:30 ET us [facility] IM[facility] US PROCEDURES Final Resul t * US Scrotum and Contents (08/08/2024 8:22 AM EDT) Anatomical Region Laterality Modality Body Ultrasound 08/08/2024 2:25 PM EDT Impressions 08/08/2024 2:27 PM EDT No suspicious finding on either side. Prominent vessels bilaterally suggests minimal varicocele. -------- FINAL REPORT -------- Dictated By: Aly Montes De Oca Dictated Date: 08/08/2024 14:25 ET Assigned Physician: Aly Montes De Oca Reviewed and Electronically Signed By: Aly Montes De Oca Signed Date: 08/08/2024 14:27 ET Workstation ID: [id number] Transcribed By: Self Edit Transcribed Date: 08/08/2024 14:25 ET Narrative 08/08/2024 2:27 PM EDT EXAM: SCROTAL ULTRASOUND HISTORY: Vest Presser screening program TECHNIQUE: Real-time grayscale evaluation of the scrotum. Color mapping of each testicle. Doppler spectral assessment of each testicle. COMPARISON: None FINDINGS: QUALITY: Adequate RIGHT TESTICLE: No focal abnormality of the testicle. Contour is smooth. Echotexture is homogeneous. Size: 4.2 x 1.9 x 2.4 cm Right vascularity: Normal Right echogenicity: Homogeneous Right extratesticular: No suspicious abnormality. The epididymis is not enlarged. There is no peristalsing bowel. Prominent vessels present suggesting a minimal varicocele. Right scrotal fluid: No significant scrotal fluid LEFT TESTICLE: No focal abnormality of the testicle. Contour is smooth. Echotexture is homogeneous. Size: 4.0 x 1.9 x 2.7 cm Left vascularity: Normal Left echogenicity: Homogeneous Left extratesticular: No suspicious abnormality. The epididymis is not enlarged. There is no peristalsing bowel. Prominent vessels suggesting minimal varicocele. Left scrotal fluid: No significant scrotal fluid ADDITIONAL: None Procedure Note Aly Montes De Oca MD - 08/08/2024 EXAM: SCROTAL ULTRASOUND HISTORY: Vest Presser screening program TECHNIQUE: Real-time grayscale evaluation of the scrotum. Color mapping ofeach testicle. Doppler spectral assessment of each testicle. COMPARISON: None FINDINGS: QUALITY: Adequate RIGHT TESTICLE: No focal abnormality of the testicle. Contour is smooth.Echotexture is homogeneous. Size: 4.2 x 1.9 x 2.4 cm Right vascularity: Normal Right echogenicity: Homogeneous Right extratesticular: No suspicious abnormality. The epididymis is notenlarged. There is no peristalsing bowel. Prominent vessels presentsuggesting a minimal varicocele. Right scrotal fluid: No significant scrotal fluid LEFT TESTICLE: No focal abnormality of the testicle. Contour is smooth.Echotexture is homogeneous. Size: 4.0 x 1.9 x 2.7 cm Left vascularity: Normal Left echogenicity: Homogeneous Left extratesticular: No suspicious abnormality. The epididymis is notenlarged. There is no peristalsing bowel. Prominent vessels suggestingminimal varicocele. Left scrotal fluid: No significant scrotal fluid ADDITIONAL: None IMPRESSION: No suspicious finding on either side. Prominent vessels bilaterally suggests minimal varicocele. -------- FINAL REPORT -------- Dictated By: Aly Montes De Oca Dictated Date: 08/08/2024 14:25 ET Assigned Physician: Aly Monte sDe Oca Reviewed and Electronically Signed By: Aly Montes De Oca Signed Date: 08/08/2024 14:27 ET Workstation ID: [id number] Transcribed By: Self Edit Transcribed Date: 08/08/2024 14:25 ET us [facility] IMG US PROCEDURES Final Resul t * US Abdomen Complete (08/08/2024 8:22 AM EDT) Anatomical Region Laterality Modality Body Ultrasound 08/08/2024 1:35 PM EDT Impressions 08/08/2024 1:44 PM EDT 1. Echogenic liver suggestive of steatosis. 2. Cholecystectomy. -------- FINAL REPORT -------- Dictated By: Jose Enrique Young Dictated Date: 08/08/2024 13:35 ET Assigned Physician: Jose Enrique Young Reviewed and Electronically Signed By: Jose Enrique Young Signed Date: 08/08/2024 13:44 ET Workstation ID: [id number] Transcribed By: Self Edit Transcribed Date: 08/08/2024 13:41 ET Narrative 08/08/2024 1:44 PM EDT PROCEDURE: Ultrasound of the abdomen. HISTORY: Vest Presser screening program. COMPARISON: None. TECHNIQUE: Grayscale, color Doppler, and spectral Doppler ultrasound evaluation of the abdomen. FINDINGS: Difficult study secondary to patient habitus. Liver: Echogenic, suggestive of steatosis. 2 small cysts. No suspicious liver lesion.. Normal flow in the main portal vein. Biliary: Cholecystectomy. Common duct not visualized. No intrahepatic ductal dilatation. Pancreas: Visualized portions are normal. Kidneys: Normal size. No focal lesion or hydronephrosis. Spleen: Normal size. No focal lesion. Vasculature: Visualized portions of the aorta and IVC are normal. Procedure Note Jose Enrique Young MD - 08/08/2024 PROCEDURE: Ultrasound of the abdomen. HISTORY: Vest Presser screening program. COMPARISON: None. TECHNIQUE: Grayscale, color Doppler, and spectral Doppler ultrasoundevaluation of the abdomen. FINDINGS: Difficult study secondary to patient habitus. Liver: Echogenic, suggestive of steatosis. 2 small cysts. No suspiciousliver lesion.. Normal flow in the main portal vein. Biliary: Cholecystectomy. Common duct not visualized. No intrahepaticductal dilatation. Pancreas: Visualized portions are normal. Kidneys: Normal size. No focal lesion or hydronephrosis. Spleen: Normal size. No focal lesion. Vasculature: Visualized portions of the aorta and IVC are normal. IMPRESSION: 1. Echogenic liver suggestive of steatosis. 2. Cholecystectomy. -------- FINAL REPORT -------- Dictated By: Jose Enrique Young Dictated Date: 08/08/2024 13:35 ET Assigned Physician: Jose Enrique Young Reviewed and Electronically Signed By: Jose Enrique Young Signed Date: 08/08/2024 13:44 ET Workstation ID: [id number] Transcribed By: Self Edit Transcribed Date: 08/08/2024 13:41 ET [facility] IM[facility] US PROCEDURES Final Resul t * US Head Neck Soft Tissue (08/08/2024 8:22 AM EDT) Anatomical Region Laterality Modality Head and Neck Ultrasound 08/08/2024 2:28 PM EDT Impressions 08/08/2024 2:30 PM EDT The thyroid is relatively small and heterogeneous with a somewhat irregular contour. Possibilities include sequelae from previous thyroiditis but there is no suspicious mass on either side TI-RADS Assessment (updated July 2016) Composition: cystic or spongiform: 0 pt mixed cystic and solid: 1 pt solid or almost completely solid: 2 pts Echogenicity: anechoic: 0 pt hyperechoic or isoechoic: 1 pt hypoechoic: 2 pts very hypoechoic: 3 pt Shape: wider than tall: 0 pt taller than wide: 3 pts Margin: smooth: 0 pt ill-defined: 0 pt lobulated/irregular: 2 pts extra-thyroidal extension: 3 pts Echogenic foci none or large comet tail artifact: 0 pt macro-calcification: 1 pt peripheral/rim ca++: 2 pts punctate echogenic foci: 3 pts TR1: 0 pts; benign; no follow-up TR2: 2 pts; not suspicious; no FNA TR3: 3 pts; mildly suspicious; < or = 1.5 cm f/u; > or = 2.5 cm FNA TR4: 4-6 pts; moderately suspicious; < or = 1.0 cm follow-up; 1.5 cm FNA TR5: 7 or > pts; highly suspicious; .5-.9 cm f/u; 1.0 cm or > FNA -------- FINAL REPORT -------- Dictated By: Aly Montes De Oca Dictated Date: 08/08/2024 14:28 ET Assigned Physician: Aly Montes De Oca Reviewed and Electronically Signed By: Aly Montes De Oca Signed Date: 08/08/2024 14:30 ET Workstation ID: [id number] Transcribed By: Self Edit Transcribed Date: 08/08/2024 14:28 ET Narrative 08/08/2024 2:30 PM EDT HISTORY: Vest Presser screening program TECHNIQUE: Grayscale assessment of the thyroid was performed with a high frequency linear transducer. COMPARISON: None FINDINGS: The right lobe of the thyroid measures: 3.5 x 0.7 x 1.2 cm Previous measurement: No previous available Right lobe contour: The right lobe contour is somewhat irregular. Right lobe echogenicity: The right lobe is heterogeneous without a discrete mass. Right lobe vascularity: Normal The left lobe of the thyroid measures: 3.4 x 0.8 x 1.3 cm Previous measurement: No previous available Left lobe contour: The left lobe contour is somewhat irregular. Left lobe echogenicity: Heterogeneous without a discrete mass Left lobe vascularity: Normal Isthmus measures (AP): 0.3 cm Previous measurement: No previous available Isthmus contour: The isthmic contour is smooth. Isthmus echogenicity: Heterogeneous Isthmus vascularity: Normal Masses: No suspicious masses OTHER: Extrathyroidal extension: None Regional lymph nodes: No enlarged lymph nodes demonstrated Procedure Note Aly Montes De Oca MD - 08/08/2024 HISTORY: Vest Presser screening program TECHNIQUE: Grayscale assessment of the thyroid was performed with a highfrequency linear transducer. COMPARISON: None FINDINGS: The right lobe of the thyroid measures: 3.5 x 0.7 x 1.2 cm Previous measurement: No previous available Right lobe contour: The right lobe contour is somewhat irregular. Right lobe echogenicity: The right lobe is heterogeneous without adiscrete mass. Right lobe vascularity: Normal The left lobe of the thyroid measures: 3.4 x 0.8 x 1.3 cm Previous measurement: No previous available Left lobe contour: The left lobe contour is somewhat irregular. Left lobe echogenicity: Heterogeneous without a discrete mass Left lobe vascularity: Normal Isthmus measures (AP): 0.3 cm Previous measurement: No previous available Isthmus contour: The isthmic contour is smooth. Isthmus echogenicity: Heterogeneous Isthmus vascularity: Normal Masses: No suspicious masses OTHER: Extrathyroidal extension: None Regional lymph nodes: No enlarged lymph nodes demonstrated IMPRESSION: The thyroid is relatively small and heterogeneous with a somewhatirregular contour. Possibilities include sequelae from previous thyroiditis but there is nosuspicious mass on either side TI-RADS Assessment (updated July 2016) Composition: cystic or spongiform: 0 pt mixed cystic and solid: 1 pt solid or almost completely solid: 2 pts Echogenicity: anechoic: 0 pt hyperechoic or isoechoic: 1 pt hypoechoic: 2 pts very hypoechoic: 3 pt Shape: wider than tall: 0 pt taller than wide: 3 pts Margin: smooth: 0 pt ill-defined: 0 pt lobulated/irregular: 2 pts extra-thyroidal extension: 3 pts Echogenic foci none or large comet tail artifact: 0 pt macro-calcification: 1 pt peripheral/rim ca++: 2 pts punctate echogenic foci: 3 pts TR1: 0 pts; benign; no follow-up TR2: 2 pts; not suspicious; no FNA TR3: 3 pts; mildly suspicious; < or = 1.5 cm f/u; > or = 2.5 cm FNA TR4: 4-6 pts; moderately suspicious; < or = 1.0 cm follow-up; 1.5 cm FNA TR5: 7 or > pts; highly suspicious; .5-.9 cm f/u; 1.0 cm or > FNA -------- FINAL REPORT -------- Dictated By: Aly Montes De Oca Dictated Date: 08/08/2024 14:28 ET Assigned Physician: Aly Montes De Oca Reviewed and Electronically Signed By: Aly Montes De Oca Signed Date: 08/08/2024 14:30 ET Workstation ID: [id number] Transcribed By: Self Edit Transcribed Date: 08/08/2024 14:28 ET us [facility] IMG US PROCEDURES Final Resul t * CT Lung Screening (08/08/2024 7:29 AM EDT) Anatomical Region Laterality Modality Chest Computed Tomogra phy 08/09/2024 5:31 AM EDT Impressions 08/09/2024 5:36 AM EDT No suspicious pulmonary nodules Lung RADS 2: Benign Appearance or Behavior - Continue annual screening with LDCT in 12 months. 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 Technique: Low-dose CT scan of the chest obtained as a lung cancer screening study. Multiplanar reformatted images were obtained. Dose reduction technique: ASIR (Adaptive statistical iterative reconstruction) and/or AEC (automated exposure control) DLP: 172.20 mGy-cm COMPARISON: None. Baseline.. FINDINGS: Lack of intravenous contrast limits evaluation of the maximus, vascular structures and visualized abdominal viscera. Lungs/airways: Trachea and central airways are patent. Mild bronchial wall thickening. Atelectasis at the lung bases. Calcified granulomata. Few occasional 1-2 mm pulmonary nodules. Base of the neck, mediastinum, heart, chest wall, vessels: The assessment of hilar lymphadenopathy is difficult without the use of IV contrast. No enlarged mediastinal lymphadenopathy. Upper abdomen: This study was performed without contrast and with lower than standard dose. These factors reduce the sensitivity for detection of small lesions in the upper abdomen. Low-attenuation lesions in the left and right hepatic lobes which are too small to be addressed by CT size criteria but statistically represent cysts. Status post cholecystectomy. Fatty infiltration of the pancreas. 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 Technique: Low-dose CT scan of the chest obtained as a lung cancerscreening study. Multiplanar reformatted images were obtained. Dosereduction technique: ASIR (Adaptive statistical iterative reconstruction)and/or AEC (automated exposure control) DLP: 172.20 mGy-cm COMPARISON: None. Baseline.. FINDINGS: Lack of intravenous contrast limits evaluation of the maximus,vascular structures and visualized abdominal viscera. Lungs/airways: Trachea and central airways are patent. Mild bronchialwall thickening. Atelectasis at the lung bases. Calcified granulomata. Few occasional 1-2 mm pulmonary nodules. Base of the neck, mediastinum, heart, chest wall, vessels: The assessmentof hilar lymphadenopathy is difficult without the use of IV contrast. Noenlarged mediastinal lymphadenopathy. Upper abdomen: This study was performed without contrast and with lowerthan standard dose. These factors reduce the sensitivity for detection ofsmall lesions in the upper abdomen. Low-attenuation lesions in the leftand right hepatic lobes which are too small to be addressed by CT sizecriteria but statistically represent cysts. Status post cholecystectomy.Fatty infiltration of the pancreas. Bones/soft tissues: Unremarkable IMPRESSION: No suspicious pulmonary nodules Lung RADS 2: Benign Appearance or Behavior - Continue annual screeningwith LDCT in 12 months. -------- FINAL REPORT -------- Dictated By: Sheron Powell Dictated Date: 08/09/2024 05:31 ET Assigned Physician: Sheron Powell Reviewed and Electronically Signed By: Sheron Powell Signed Date: 08/09/2024 05:36 ET Workstation ID: [id number] Transcribed By: Self Edit Transcribed Date: 08/09/2024 05:[address] PROCEDURES Final Resul t from Last 3 Months [facility] [place] [address] [employer] Care Teams Ratchet Setter Relationship Specialty Start Date End Date Miranda Day FNP [address] [place] [address] PCP - General Nurse Practitioner 07/06/24
--- NOTE | 2024-10-17 08:08 | A.OFFPC_ITS ---
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: No Allergies No Known Allergies (No Known Allergies*) Allergy (Verified 10/17/24 08:46) Medication List - Last Reconciled 10/17/24 by Miranda Day, OFF TRACK BETTING MANAGER- betamethasone dipropionate 0.05% 1 appl topical BID PRN bisacodyl (Dulcolax (bisacodyl)) 20 mg (4 x 5 mg) PO ONCE 1 day diclofenac sodium 1% grams topical BID levothyroxine 100 mcg PO DAILY pantoprazole 40 mg PO BID 90 days polyethylene glycol 3350 (Miralax) 17 grams PO DAILY 1 day rosuvastatin (Crestor) 5 mg PO DAILY Tobacco use date assessed: 10/17/24 Dental Screening Dental Screen Date: 10/17/24 Did you have a dental visit in the last 12 months?: Yes Did you have a dental problem in the last 6 months where you did not have access to dental care?: No Was dental information given to patient?: Patient has dentist HPI HPI Comments History of Present Illness Details 53-year-old male with nonalcoholic liver obesity, GERD, hypothyroidism, hyperlipidemia, vitamin-D deficiency, psoriasis, diverticulosis, renal calculi, elevated serum Status post lap cholecystectomy 2022 Health maintenance Colonoscopy January 2020 repeat in 5 years due January 2025 EGD 01/05/2019 GASTRITIS AND 2 1 CM HEALING ESOPHAGEAL EROSIONS WITH NO JOHNSTON'S PFT- a mild degree of restrictive pulmonary disorder is noted, which may be related to obesity; no obstructive airway disorder Echo 08/2017 wnl Tdap 2022 Flu Uro - referred today for varicocele, US 08/2024 Specialists GI last appt next 09/2024, next 03/2025 Renal next appt 11/14/[address] Sravani Hall Cancer screenings 08/2024 CT Lung pulm nodules, hepatic cysts repeat 1 year us head and neck US abd liver cysts, fatty liver Us scrotum varicocele History of Present Illness - The patient is a 53-year-old male pres enting for a routine follow-up for chronic conditions. - Managed hypothyroidism with levothyrox ine; TSH at 4.5. - GERD managed with pantoprazole; sympto ms controlled with prn 2nd dose. - Hyperlipidemia managed with rosuvastat in. - Psoriasis treated with topical betamet hasone. - Obesity with a BMI of 33.2. - Renal impairment noted with GFR below 60; creatinine fluctuations not concerning. Annual renal appts, next 11/2024 - Pulmonary nodules and hepatic cysts st able, follow-up planned. See above. - Varicocele present, bothersome. - Notable familial stressors impacting s leep and fatigue. - peeling of pad of L ring finger with b listering; soft tissue lesion l index finger proximal to nail bed, painful, present for months. Review of Systems - Constitutional: Denies chills, fever, night sweats. - HEENT: Reports occasional dry eyes. - Gastrointestinal: Reports GERD managed with medication. - Endocrine: Denies cold intolerance; sl ightly elevated TSH at 4.5. - Dermatologic: Reports managed psoriasi s. - Musculoskeletal: Denies joint pain. - Psychiatric: Reports stress related to family dynamics. Physical Exam General: Well developed, well nourished, in no acute distress. Appears stated age. Obesity with a BMI of 33.2 noted. Head: Normocephalic, atraumatic. Eyes: Pupils are equal, round and reactive to light and accommodation. Conjunctivae are clear. Vision grossly normal. Lungs: Clear to auscultation bilaterally. No rales, rhonchi or wheeze noted. Good air flow in all jiang. Heart: Regular rate and rhythm. No murmurs, click, rubs or gallops are noted. Abdomen: Bowel sounds present in all quadrants. The abdomen is soft, nontender, with no masses or organomegaly noted. No hernias are noted. Musculoskeletal: Joints are nontender, without swelling, redness, or effusions. Pulses: Peripheral pulses are equal and palpable bilaterally. Extremities: No clubbing, cyanosis nor edema is noted. palpable soft mass L index finger near nail bed TTP Psych: Mood and affect appropriate. Patient reports stress due to personal circumstances. Results - Labs: TSH 4.5; creatinine and GFR leve ls fluctuating but within expected range for renal history. - Imaging: Pulmonary nodules and hepatic cysts noted; varicocele identified on ultrasound. Discussion Notes I discussed the management of the patient's chronic conditions including hypothyroidism, GERD, and hyperlipidemia. We agreed that the current levothyroxine dosage can remain unless symptoms of hypothyroidism manifest, in which case recheck of TSH might be considered. Pantoprazole regimen for GERD seems adequate with additional prn doses. Hyperlipidemia management with rosuvastatin will continue. We reviewed the patient's recent labs and are not concerned about the renal function variations, consistent with past evaluations. The patient will be followed by nephrology. Pulmonary nodules and hepatic cysts will be monitored with future imaging as planned (managed by outside provider). Varicocel w/ sx, urology consultation were discussed. Follow-up with the chalk molding machine operator was planned to evaluate hand lesions. Assessment and Plan 1. Hypothyroidism - Levothyroxine 100 mcg/day continued. Repeat labs in 4-6 weeks if cont to be > 4, consider dose change. 2. Gastroesophageal Reflux Disease - Continue current pantoprazole regimen. 3. Hyperlipidemia - Continue rosuvastatin 5 mg/day. 4. Psoriasis - Continue topical betamethasone. 5. Obesity - Importance of lifestyle changes discus sed. 6. Renal Impairment - GFR and creatinine monitoring; nephrol ogy review pending. 7. Pulmonary Nodules 08/2024 - Follow-up imaging in one year. managed by outside provider 8. Hepatic Cysts - Continue monitoring with imaging. 9. Varicocele - [place] [facility] [place] 10. Familial Stressors - Discussed impact on health and sleep. 11. Left finger/skin issues - refer to [facility] for eval and tx. Patient Instructions - Continue taking medications as prescri bed. - Monitor for symptoms of hypothyroidism and report if noticed. - Follow the current dietary and lifesty le guidance to assist with weight management. - Stay on alert for any changes in sympt oms and call for an appointment as needed. - Await contact from referred specialist s, schedule appointments accordingly. - Plan for upcoming routine follow-up vi sits and testing as discussed. - RTO 6 MONTHS FOR CPE, LABS 1 WEEK BEFO RE; I WILL FU WITH YOU ONCE REPEAT TSH IS COMPLETE Consent Patient was informed and verbally consented to the use of an ambient scribe for clinic note documentation during this visit. Total time spent caring for the patient today was 45 minutes. This includes time spent before the visit reviewing the chart, time spent during the visit, and time spent after the visit on documentation, reviewing laboratory results, diagnostic imaging, medications, performing a medically necessary evaluation, counseling on diagnoses, care coordination, ordering appropriate tests, ordering appropriate medications, review of tests performed by other providers, reporting test results with the patient, communication with other healthcare providers. [facility] Medical History (Updated 10/17/24 @ 09:32 by KATRINA Rowe-ENOCH) Benign colon polyp Diverticulosis Elevated cholesterol Fatty liver GERD (gastroesophageal reflux disease) Hematoma History of PFTs Renal calculi Thyroid disease Surgical History (Updated 10/17/24 @ 07:14 by KATRINA Rowe-ENOCH) History of colonoscopy (~2019) History of esophagogastroduodenoscopy (EGD) History of evacuation of hematoma Hx laparoscopic cholecystectomy (01/04/23) Family History Father CAD (coronary artery disease) Mother Hx of colon cancer, stage IV Social History Household Members: Spouse and Children Both parents involved: No Caregiver staying overnight: No Housing: House Are you a primary health care aide to a significant other at home: No Do you presently have visiting nurse or other home services: No 75 years or older and lives alone: No Alcohol intake: current Alcohol intake frequency: holidays/special occasions only Patient Tobacco Use Status: Never used Tobacco e-Cigarette/Vaping Use: Never Used Second Hand Smoke Exposure: No service: No Current occupational status: employed 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 Current occupational exposures/hazards: Yes Sexual orientation: Unable to collect Gender identity: Unable to collect Cognitive needs: No Hearing needs: No Vision needs: No Questionnaire Thrive Questionnaire Date Thrive assessed: 04/10/24 I am a: Patient What is your living situation today?: I have a steady place to live Within the past 12 months, did the food you bought not last and you didn't have the money to get more?: Never true Within the past 12 months, did you worry whether your food would run out before you got money to buy more?: Never true Do you have trouble paying for medicines?: No Do you have trouble getting transportation to medical appointments?: No Do you have trouble paying your heating and electricity bill?: No Do you have trouble taking care of your child, family member or friend?: No Do you have trouble with day-to-day activities such as bathing, preparing meals, shopping, managing finances, etc.?: No Are you currently unemployed and looking for a job?: No Are you interested in more education?: No Please select the resources that you would like help with: None Currently or been in a relationship where the following occur: No concerns reported THRIVE Score: 0 JANESSA-7 AMB Questionnaire JANESSA-7 Date JANESSA - 7 assessed: 04/10/24 Source: Developed by Drs. Clint Kelley, Marielle Velazquez, Yoan Sampson and colleagues, with an educational jose e from [employer]. Physical exam (Primary Care) Vital Signs: Last Vital Signs Temp 97.2 F 10/17/24 08:25 Pulse 58 10/17/24 08:25 Resp 12 10/17/24 08:25 BP 114/67 10/17/24 08:25 Pulse Ox 98 10/17/24 08:25 Oxygen Delivery Method Room Air 10/17/24 08:25 BMI result Body Mass Index 33.2 BMI Assessment/Plan discussion: High BMI High, discussed plan: lifestyle Tobacco/Smoking Status: Tobacco use Status Tobacco use date assessed 10/17/24 10/17/24 08:23 Patient Tobacco Use Status Never used Tobacco 10/17/24 08:08 e-Cigarette/Vaping Use Never Used 10/17/24 08:08 Thrive Assessment: Date of Thrive Assessment Date Thrive assessed 04/10/24 10/17/24 08:08 Currently or been in a relationship where the following occur: No concerns reported Results Reviewed Results Reviewed: 10/13/2024 Laboratory Result Units Range Interpretation Provider Comments Sodium Level 141 mmol/L (135-145) Potassium Level 4.0 mmol/L (3.3-5.1) Chloride Level 107 mmol/L (96-108) Carbon Dioxide Level 25 mmol/L (22-29) Anion Gap 13 (12-20) Blood Urea Nitrogen 23 mg/dL (9-16) High Creatinine 1.53 mg/dL (0.5-1.4) High Estimated Creatinine Clearance Calc Not Reportable Estimat Glomerular Filtration Rate 48 Fasting Glucose 96 mg/dL (60-99) Calcium Level 9.4 mg/dL (8.4-10.2) Total Bilirubin 1.8 mg/dL (0.0-1.0) High Aspartate Amino Transf (AST/SGOT) 32 U/L (5-37) Alanine Aminotransferase (ALT/SGPT) 39 U/L (0-40) Alkaline Phosphatase 66 U/L (39-117) Total Protein 7.4 g/dL (6.5-8.0) Albumin 4.9 g/dL (3.5-5.0) Triglycerides Level 120 mg/dL (<150) Cholesterol Level 174 mg/dL (<200) LDL Cholesterol, Calculated 94 mg/dL (<100) HDL Cholesterol 56 mg/dL (>40) Thyroid Stimulating Hormone (TSH) 4.50 uIU/mL (0.32-4.0) High Free Thyroxine 1.11 ng/dL (0.71-1.85) Coding Level of Care Code Est Pt Level 5 (06276) Complex EM visit Add On G2211 Diagnoses Mixed hyperlipidemia E78.2 Hyperlipidemia type: mixed hyperlipidemia Acquired hypothyroidism E03.9 Hypothyroidism type: acquired GERD without esophagitis K21.9 NAFL (nonalcoholic fatty liver) K76.0 Psoriasis L40.9 Varicocele present on ultrasound of scrotum I86.1 Vitamin D deficiency E55.9 Lesion of finger L98.9 Pulmonary nodules R91.8 Simple hepatic cyst K76.89 BMI 33.0-33.9,adult Z68.33 Assessment & Plan Assessment & Plan (1) Hyperlipidemia: Code(s): E78.5 - Hyperlipidemia, unspecified Category: Medical Qualifiers: Hyperlipidemia type: mixed hyperlipidemia Qualified Code(s): E78.2 - Mixed hyperlipidemia (2) Hypothyroidism: Code(s): E03.9 - Hypothyroidism, unspecified Category: Medical Qualifiers: Hypothyroidism type: acquired Qualified Code(s): E03.9 - Hypothyroidism, unspecified (3) GERD without esophagitis: Comment: Continue Pantoprazole 40 mg twice daily Code(s): K21.9 - Gastro-esophageal reflux disease without esophagitis Category: Medical (4) NAFL (nonalcoholic fatty liver): Code(s): K76.0 - Fatty (change of) liver, not elsewhere classified Category: Medical (5) Psoriasis: Code(s): L40.9 - Psoriasis, unspecified Category: Medical (6) Varicocele present on ultrasound of scrotum: Comment: US 08/2024 PT WITH SYMPTOMS Code(s): I86.1 - Scrotal varices Category: Medical (7) Vitamin D deficiency: Comment: was taking 5000 mcg daily. Vitamin-D level greater than 70. Advised to discontinue supplement. We will trend at future labs. should avoid supplements in future given ^ bili Code(s): E55.9 - Vitamin D deficiency, unspecified Category: Medical (8) Lesion of finger: Code(s): L98.9 - Disorder of the skin and subcutaneous tissue, unspecified Category: Medical (9) Pulmonary nodules: Onset Date: ~08/2024 Comment: CT SCAN PAIGE Code(s): R91.8 - Other nonspecific abnormal finding of lung field Category: Medical (10) Simple hepatic cyst: Onset Date: ~08/2024 Comment: US AND CT SCAN 08/2024 PAIGE Code(s): K76.89 - Other specified diseases of liver Category: Medical (11) BMI 33.0-33.9,adult: Code(s): Z68.33 - Body mass index [BMI] 33.0-33.9, adult Category: Medical Plan . Orders: Orders TSH reflex Free T4 Today E03.9 - Hypothyroidism, unspecified Comprehensive Met. Panel Today E03.9 - Hypothyroidism, unspecified, E55.9 - Vitamin D deficiency, unspecified, E78.2 - Mixed hyperlipidemia Hemoglobin A1c Today E03.9 - Hypothyroidism, unspecified, E55.9 - Vitamin D deficiency, unspecified, E78.2 - Mixed hyperlipidemia Lipid Panel Today E03.9 - Hypothyroidism, unspecified, E55.9 - Vitamin D deficiency, unspecified, E78.2 - Mixed hyperlipidemia Vitamin B12 and Folate Today E03.9 - Hypothyroidism, unspecified, E55.9 - Vitamin D deficiency, unspecified, E78.2 - Mixed hyperlipidemia Vitamin D 25-OH Total 6 Months E03.9 - Hypothyroidism, unspecified, E55.9 - Vitamin D deficiency, unspecified, E78.2 - Mixed hyperlipidemia Complete Blood Count no Diff Today E03.9 - Hypothyroidism, unspecified, E55.9 - Vitamin D deficiency, unspecified, E78.2 - Mixed hyperlipidemia IRON PROFILE Today E03.9 - Hypothyroidism, unspecified, E55.9 - Vitamin D deficiency, unspecified, E78.2 - Mixed hyperlipidemia Microalbumin, Random (w Creat) Today E03.9 - Hypothyroidism, unspecified, E55.9 - Vitamin D deficiency, unspecified, E78.2 - Mixed hyperlipidemia Prostate Specific Antigen Scr 6 Months E03.9 - Hypothyroidism, unspecified, E55.9 - Vitamin D deficiency, unspecified, E78.2 - Mixed hyperlipidemia TSH reflex Free T4 6 Months E03.9 - Hypothyroidism, unspecified, E55.9 - Vitamin D deficiency, unspecified, E78.2 - Mixed hyperlipidemia Referrals Urology Referral I86.1 - Scrotal varices Dermatology Referral L98.9 - Disorder of the skin and subcutaneous tissue, unspecified
[2024-10-17 08:25] VITALS: BP 114/67; PULSE 58; RESP 12; TEMP 36.2; O2SAT 98; BMI 33.2
== END 2024-10-17 09:28 | disposition home or self-care (01) ==
LOC: HO.HMCFM 08:04
PROVIDERS: PCP Nurse Practitioner Family; Visit Provider Nurse Practitioner Family
DX: E78.2 Mixed hyperlipidemia (principal); E03.9 Hypothyroidism, unspecified; K21.9 Gastro-esophageal reflux disease without esophagitis; K76.0 Fatty (change of) liver, not elsewhere classified; L40.9 Psoriasis, unspecified; I86.1 Scrotal varices; E55.9 Vitamin D deficiency, unspecified; L98.9 Disorder of the skin and subcutaneous tissue, unspecified; R91.8 Other nonspecific abnormal finding of lung field; K76.89 Other specified diseases of liver; Z68.33 Body mass index [BMI] 33.0-33.9, adult

== ENCOUNTER 2024-12-26 13:27 | Outpatient (AMB) | payer OTHER, SELFPAY ==
--- OUTSIDE RECORDS SUMMARY | 2023-12-22 05:15 | XMS_ITS ---
Author Organization [facility] Address [address] [address] Care Team Providers Care Final Expense Agent Name Role Phone Ruben Reyse Primary Care Provider UnavailBITA Pacheco [phone] REASON FOR VISIT 6wk Encounters Encounter Location Date Provider Diagnosis [facility] [address] [address] 12/22/2023 IBTA LUNA Plan Of Treatment No Information Progress Notes * Lisandro MORENODOB:1970 (53 yo M)Acc No.[id number]:12/22/2023 Progress Note Patient: Lisandro FARIA Provider: Cortney Luna DPM :1970 A ge:52 Y S ex:Male Date:12/22/2023 Address: [address] [id number] Pcp:Ruben Reyes Subjective: * Chief Complaints: * 1 . 6wk. * Medical History: Objective: * Vitals: Assessment: Plan: * Treatment: * Billing Information: * Visit Code: * Procedure Codes: * Electronic signature of GABE LUNA D.P.M on 12/26/2024 at 02:14 PM EDT Sign off status: Pending * Provider: Cortney Luna DPM Date: 12/22/2023 Generated for Elizabeth arellano/Joselyn/eTransmitting on: 12/26/2024 02:14 PM EDT
--- NOTE | 2024-12-26 13:31 | A.OFFVIS_ITS ---
Intake Visit Reasons: Testicular varicele Intake Note: Patient is present for TESTICULR VARICELE Urology Medication:NONE Antibiotic Allergy:NONE Blood Thinner:NONE TODAY'S PVR:0ML'S Nozzle Tender Required: No Allergies No Known Allergies (No Known Allergies*) Allergy (Verified 12/26/24 14:23) Medication List - Last Reconciled 12/26/24 by KATRINA Mckenzie- betamethasone dipropionate 0.05% 1 appl topical BID PRN bisacodyl (Dulcolax (bisacodyl)) 20 mg (4 x 5 mg) PO ONCE 1 day diclofenac sodium 1% grams topical BID levothyroxine 100 mcg PO DAILY pantoprazole 40 mg PO BID 90 days polyethylene glycol 3350 (Miralax) 17 grams PO DAILY 1 day rosuvastatin (Crestor) 5 mg PO DAILY HPI Comments Details: Lisandro Perrin is a pleasant 53-year-old male patient of Dr. Day. He has a past medical history of diverticulosis, GERD, nephrolithiasis, fatty liver, thyroid disease, and hypercholesteremia. He presents to the office today as a new patient for varicoceles. In discussion with the patient today he reports a longstanding history of varicoceles over the last 20-25 years however has recently had a scrotal ultrasound in recommendations were made for urology referral for further assessment evaluation. These results were reviewed and communicated with the patient today. 08/27 no suspicious findings and either side. Prominent vessels bilaterally suggests minimal varicocele. In assessment of the patient today the penis is circumcised and bilateral varicoceles are palpated. When asked he does report infrequent episodes of left-sided scrotal discomfort. He describes these episodes are infrequent and feels pain is relieved with position needing of scrotum. We did discussed potential causes of varicoceles as well as further treatment options and risks and benefits of these treatment options. He otherwise denies any bothersome urinary issues. He denies urinary urgency, urinary frequency, incontinence, nocturia, hematuria, dysuria, foul smelling urine, changes to urinary stream, flank pain, fever, and or chills. He is happy with his current voiding parameters. In office urinalysis results reviewed with the patient today. He otherwise offers no other issues or concerns at this time. In review of patient's chart it appears PSAs are as follows: PSA: 11/21 0.4, 03/25 0.4, 09/25 0.5, 04/29 0.4 PFSH Medical History Benign colon polyp History of PFTs Diverticulosis Hematoma GERD (gastroesophageal reflux disease) Renal calculi Fatty liver Thyroid disease Elevated cholesterol Surgical History (Updated 10/17/24 @ 07:14 by Miranda Day [facility]) Hx laparoscopic cholecystectomy (01/04/23) History of colonoscopy (~2019) History of evacuation of hematoma History of esophagogastroduodenoscopy (EGD) Family History Father CAD (coronary artery disease) Mother Hx of colon cancer, stage IV Social History Household Members: Spouse and Children Both parents involved: No Caregiver staying overnight: No Housing: House Are you a primary career services assistant to a significant other at home: No Do you presently have visiting nurse or other home services: No 75 years or older and lives alone: No Alcohol intake: current Alcohol intake frequency: holidays/special occasions only Patient Tobacco Use Status: Never used Tobacco e-Cigarette/Vaping Use: Never Used Second Hand Smoke Exposure: No service: No Current occupational status: employed 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 Current occupational exposures/hazards: Yes Sexual orientation: Unable to collect Gender identity: Unable to collect Cognitive needs: No Hearing needs: No Vision needs: No Review of Systems Const All systems reviewed & are unremarkable except as noted in HPI and below Physical Exam Const General: cooperative, healthy appearing, comfortable, no acute distress, well developed, alert and awake Orientation/consciousness: patient oriented x3 Limitations: no limitations HEENT Head: Yes normal to inspection, Yes normocephalic and Yes atraumatic Ears: hearing grossly normal bilaterally Eyes General: appearance normal, both eyes and all related structures Neck Neck: Yes normal visual inspection and Yes trachea midline Chest Chest palpation & inspection: normal inspection of the chest Resp Effort & Inspection: normal respiratory effort and able to speak in complete sentences Cardio Rate: regular rate GI Inspection: Yes normal to inspection General: Yes no CVA tenderness Back/Spine/Pelvis Back: no CVA tenderness Skin General skin exam: no rashes or lesions noted Neuro General: patient oriented x3 Extrem General: Yes normal to inspection Psych Appearance: grossly normal and well kempt Mental Status: mental status grossly normal Speech and movement: Normal speech and movement present and Clear speech present Affect: normal affect Attitude: cooperative Thought process: Normal thought process present Thought content: Normal thought content present Insight: Fair insight present (Psych) Judgement: Fair judgement present (Psych) Office Procedures Post Void Residual Post Residual Void Post Void Residual (PVR): 0 [id number] Void Residual by ultrasound Results AMB Urinalysis, Automated UA Leukoctes 0 Sal/uL Last Edit by EZRA Larios on 12/26/24 13:52 UA Nitrite Negative Last Edit by Lacie Lin [facility] on 12/26/24 13:52 UA Urobilinogen 0.2 mg/dL Last Edit by Lacie Lin [facility] on 12/26/24 13:5 2 UA Protein 0 mg/dL Last Edit by Lacie Lin [facility] on 12/26/24 13:52 UA pH 6.0 Last Edit by Lacie Lin [facility] on 12/26/24 13:52 UA Blood 0 Jonathan/uL Last Edit by Lacie Lin [facility] on 12/26/24 13:52 UA Specific [place] 1.025 Last Edit by Lacie Lin [facility] on 12/26/24 13: 52 UA Ketone Negative Last Edit by Lacie Lin [facility] on 12/26/24 13:52 UA Bilirubin 0 mg/dL Last Edit by Lacie Lin [facility] on 12/26/24 13:52 UA Glucose 0 mg/dL Last Edit by Lacie Lin [facility] on 12/26/24 13:52 Results Reviewed Results Reviewed: Laboratory Last Values Urine pH (Auto) 6.0 12/26/24 13:51 Specific [place] (Auto) 1.025 12/26/24 13:51 Urine Protein (Auto) 0 mg/dL 12/26/24 13:51 Glucose (UA)(Auto) 0 mg/dL 12/26/24 13:51 Urine Ketones (Auto) Negative 12/26/24 13:51 Urine Blood (Auto) 0 Jonathan/uL 12/26/24 13:51 Urine Nitrite (Auto) Negative 12/26/24 13:51 Urine Bilirubin (Auto) 0 mg/dL 12/26/24 13:51 Urine Urobilinogen (Auto) 0.2 mg/dL 12/26/24 13:51 Leukocyte Esterase (Auto) 0 Sal/uL 12/26/24 13:51 Assessment & Plan Assessment & Plan (1) Varicocele present on ultrasound of scrotum: Comment: US 08/2024 PT WITH SYMPTOMS Code(s): I86.1 - Scrotal varices Category: Medical Plan In office urinalysis results reviewed with the patient today; as noted above. Recent scrotal ultrasound results reviewed with the patient today; as noted above. We will continue with surveillance monitoring. Will obtain scrotal ultrasound in 1 year. He denies any bothersome urinary issues or concerns. He reports be happy with current voiding parameters. Follow-up in 1 year with imaging to be completed prior; or sooner with any issues, concerns, and or questions. Orders: Orders US scrotum 1 Year I86.1 - Scrotal varices AMB Urinalysis Automated Today Z13.9 - Encounter for screening, unspecified Patient Instructions: The patient had an opportunity to ask questions regarding the treatment plan. All questions were answered. Physical exam, labs, and imaging were discussed and reviewed in detail. As well as risks, benefits, and discussion of treatment choices. No major barriers to understanding were identified. The patient expressed understanding and agreement with the above treatment plan. The patient was made aware they should contact our office by phone for worsening of their current condition, the appearance of new symptoms, or with any questions or concerns. Compliance is encouraged with any medications and follow up testing that is ordered. It is a privilege to be allowed the opportunity to participate in? your urological care.? Again, if you have any questions or concerns If you have any questions or concerns please do not hesitate to contact me. The office is [phone]. This note is constructed using voice recognition software. While every effort has been made to ensure accuracy account development representative errors may have been included. Yours sincerely, SAUL Mckenzie Coding Level of Care Code New Pt Level 3 (36287) Diagnoses Varicocele present on ultrasound of scrotum I86.1 CPT Codes Post Residual Void - PVR CPT Code: 12339-Lafl Void Residual by ultrasound ([id number])
--- OUTSIDE RECORDS SUMMARY | 2024-12-26 16:31 | XMS_ITS | Encounter Summary ---
Author Organization [facility] [place] [address] Phone Care Team Providers Care Direct Care Staffer Name Role Phone Srikanth Sanchze NP Primary Care Provider [phone] Encounter Details Date Type Department Care Team (Late st Contact Info) Description 11/11/2022 Documentation Only [facility] [address] [place] [phone] Brenton Ayala MD [address] [place] [phone] Social History Tobacco Use Types Packs/Day Years Used Date Smoking Tobacco: Never Assessed Sex and Gender Information Value Date Recorded Sex Assigned at Not on file Legal Sex Male 4:23 PM EDT Gender Identity Not on file Sexual Orientation Not on file documented as of this encounter Plan of Treatment Upcoming Encounters Date Type Department Care Team (Late st Contact Info) Description 01/29/2025 4:00 PM EDT Office Visit [facility] [address] [place] [phone] Daniel Mckeon MD [address] [place] [address] documented as of this encounter Visit Diagnoses Not on filedocumented in this encounter Care Teams Direct Care Staffer Relationship Specialty [place] [address] [place] [address] PCP - General Nurse Practitioner 09/22/22 documented as of this encounter
--- OUTSIDE RECORDS SUMMARY | 2024-12-26 16:31 | XMS_ITS | Clinical Summary ---
Author Organization [facility] Address [address] [place] [place] [address] Phone Care Team Providers Care Maintenance Mechanic 2Nd Shift Name Role Phone Srikanth Sanchez NP Primary Care Provider [phone] Medications levothyroxine sodium (TIROSINT) 100 MCG capsule Take 100 mcg by mouth 1 (one) time each day Active pantoprazole (PROTONIX) 40 MG EC tablet Take 40 mg by mouth 1 (one) time each day before breakfast Do not crush, chew, or split. Active rosuvastatin (CRESTOR) 5 MG tablet Take 5 mg by mouth 1 (one) time each day Active Active Problems Problem Noted Date Diagnosed Date Serum creatinine above reference range 3 Encounters Date Type Department Care Team Description 11/08/2024 Orders Only [facility], [address] [place] [address] Gisella Driver MA Serum creatinine above reference range (Primary Dx); Chronic kidney disease, not otherwise specified; Proteinuria, not otherwise specified from Last 3 Months Social History Tobacco Use Types Packs/Day Years Used Date Smoking Tobacco: Never Assessed Sex and Gender Information Value Date Recorded Sex Assigned at Not on file Legal Sex Male 4:23 PM EDT Gender Identity Not on file Sexual Orientation Not on file Last Filed Vital Signs Vital Sign Reading Time Taken Comments Blood Pressure 120/76 11/15/2023 2:12 PM EDT Pulse - - Temperature - - Respiratory Rate - - Oxygen Saturation - - Inhaled Oxygen Concentration - - Weight - - Height - - Body Mass Index - - Plan of Treatment Upcoming Encounters Date Type Department Care Team (Late st Contact Info) Description 01/29/2025 4:00 PM EDT Office Visit [facility], [address] [place] [phone] Daniel Mckeon MD [address] [place] [address] Health Maintenance Due Date Last Done Comments Hepatitis B Vaccine (1 of 3 - 19+ 3-dose series) 12/28 Pneumococcal Vaccine: 50+ Years (1 of 2 - PCV) 991 Colorectal Cancer Screening: Annual FOBT 12/28/2020 Colorectal Cancer Screening: Colonoscopy 12/28/2020 Colorectal Cancer Screening: Sigmoidoscopy 12/28/2020 Influenza Vaccine (#1) 2024 Insurance [employer] Care Teams Maintenance Mechanic 2Nd Shift Relationship Specialty Start Date End Date Srikanth Sanchez NP [address] [place] [address] PCP - General Nurse Practitioner 09/22/22
--- OUTSIDE RECORDS SUMMARY | 2024-12-26 16:32 | XMS_ITS | Patient Health Record ---
Author Organization [facility] Address [address] [address] Care Team Providers Care Decating Machine Operator Name Role Phone Amy Ruben Primary Care Provider UnavailBITA Pacheco Unavailable [phone] Allergies No Known Allergies Reason For Referral No Information Medications Medication SIG (Take, Route, Frequency, Duration) Notes Start Date End Date Status Rosuvastatin Calcium 5 MG 1 tablet Orall y Once a day Active Diclofenac Sodium 1 % as directed Outside Operator ally twice daily; Duration: 30 days 10/06/2023 Active Pantoprazole Sodium 40 MG 1 tablet Orall y Once a day Active Levothyroxine Sodium 100 MCG 1 tablet in the morning on an empty stomach Orally Once a day Active Problems Problem Type SNOMED Code ICD Code Onset Dates Problem Status W/U Status Risk Notes Problem 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
--- OUTSIDE RECORDS SUMMARY | 2024-12-26 16:32 | XMS_ITS | Encounter Summary ---
Author Organization [facility] Address [address] [place] [address] Phone Care Team Providers Care Room Service Bellhop Name Role Phone Srikanth Sanchez NP Primary Care Provider [phone] Encounter Details Date Type Department Care Team (Late st Contact Info) Description 09/22/2022 Documentation Only [facility] [address] [place] [phone] Renea Coffman [address] [place] [phone] Social History Tobacco Use Types Packs/Day Years [...] Visit [facility] [address] [place] [phone] Daniel Mckeon MD [address] [place] [phone] documented as of this encounter Visit Diagnoses Not on filedocumented in this encounter Care Teams Room Service Bellhop Relationship Specialty Start Date End Date Srikanth Sanchez NP [address] [facility] [place] [id number] PCP - General Nurse Practitioner 09/22/22 documented as of this encounter
--- OUTSIDE RECORDS SUMMARY | 2024-12-26 16:32 | XMS_ITS | Clinical Summary ---
Author Organization [facility] [address] [facility] Address [address] [place] [address] Phone Care Team Providers Care General Manager Land Department Name Role Phone Miranda Day Primary Care Provider Social History Tobacco Use Types Packs/Day Years [...] 12/28/2021 Zoster Vaccines (1 of 2) 12/28/2021 Depression Screening 04/05/2024 Cholesterol Screening (Lipid Panel) 07/05/2024 Colorectal Cancer Screening: Colonoscopy 07/05/2024 HIV Screening 07/05/2024 Hepatitis C Screening 07/05/2024 Social Influencers of Health Screening 07/05/2024 COVID-19 Vaccine ( season) 2024 04/15/2021, 04/24/2020, 04/03/2020 Influenza Vaccine (#1) 2024 , 01/22/2023, 06/16/2019, Additional history exists DTaP,Tdap,and Td Vaccines (3 - Td or Tdap) 03/10/2033 03/10/2023, 06/08/2012 RSV Immunization Adult Patients (1 - 1-dose 75+ series) 12/28/2046 HIB Vaccines Aged Out No longer eligi [...] on patient's age to complete this topic Insurance [facility] [place] [id number] [employer] Care Teams General Manager Land Department Relationship Specialty Start Date End Date Miranda Day FNP [address] [place] [address] PCP - General Nurse Practitioner 07/06/24
== END 2024-12-26 14:16 | disposition home or self-care (01) ==
LOC: HO.HUSH 13:28
PROVIDERS: PCP Nurse Practitioner Family; Visit Provider Nurse Practitioner Family
DX: I86.1 Scrotal varices (principal); Z13.9 Encounter for screening, unspecified
CPT/HCPCS: 99203

== ENCOUNTER → 2024-12-26 13:27 | Outpatient (BNVA) | payer OTHER, SELFPAY | PROVIDERS: PCP Nurse Practitioner Family; Visit Provider Nurse Practitioner Family | DX: I86.1 Scrotal varices (principal) | CPT/HCPCS: 51798; 81003 ==

== ENCOUNTER 2025-01-31 13:44 | Outpatient (AMB) | payer OTHER, SELFPAY ==
--- OUTSIDE RECORDS SUMMARY | 2023-12-22 05:15 | XMS_ITS ---
Author Organization [facility] Address [address] [address] Care Team Providers Care Indoor Landscape Architect Name Role Phone Ruben Reyes Primary Care Provider UnavailBITA Pacheco [phone] REASON FOR VISIT 6wk Encounters Encounter Location Date Provider Diagnosis [facility] [address] [address] 12/22/2023 BITA LUNA Plan Of Treatment No Information Progress Notes * Lisandro MORENODOB:1970 (54 yo M)Acc No.[id number]:12/22/2023 Progress Note Patient: Lisandro FARIA Provider: Cortney Luna DPM :1970 A ge:52 Y S ex:Male Date:12/22/2023 Address: [address], [id number] Pcp:Ruben Reyes Subjective: * Chief Complaints: * 1 . 6wk. * Medical History: Objective: * Vitals: Assessment: Plan: * Treatment: * Billing Information: * Visit Code: * Procedure Codes: * Electronic signature of GABE LUNA D.P.M on 01/31/2025 at 05:32 PM EDT Sign off status: Pending * Provider: Cortney Luna DPM Date: 0 12/22/2023 Generated for Elizabeth arellano/Joselyn/eTransmitting on: 1 05:32 PM EDT
--- OUTSIDE RECORDS SUMMARY | 2025-01-29 16:00 | XMS_ITS | Encounter Summary ---
Author Organization [facility] [place] [address] [place] [address] Phone Care Team Providers Care Performing Arts Road Manager Name Role Phone Miranda Rojas Primary Care Provider [phone] Encounter Details Date Type Department Care Team (Late st Contact Info) Description 01/29/2025 4:00 PM EDT Office Visit [facility], [address] [place] [phone] Brenton Ayala MD [address] [place] [address] [place] [phone] Serum creatinine above reference range (Primary Dx) Social History Tobacco Use Types Packs/Day Years Used Date Smoking Tobacco: Never Assessed Sex and Gender Information Value Date Recorded Sex Assigned at Not on file Legal Sex Male 4:23 PM EDT Gender Identity Not on file Sexual Orientation Not on file documented as of this encounter H&P Notes * Brenton Ayala MD - 01/29/2025 4:00 PM EDT Images from the original note were not included. PATIENT: Lisandro Paige : 1970 ENCOUNTER: 01/29/2025 PCP: Miranda Rojas FNP Lisandro Paige, a male patient, presented for routine nephrology follow-up. He reported having a mild cold and ongoing psoriasis treated with topical steroids. His chronic kidney disease remains stable with creatinine of 1.5 mg/dL (compared to 1.6 mg/dL in 2022). Blood pressure was well-controlled at 130/78 mmHg. The plan includes annual nephrology follow-up, continued dietary salt restriction, weight management, and regular exercise. Lisandro Paige is a 54 y.o. year old patient who I have followed for a history of the following renal issues: Elevated creatinine PAST MEDICAL HISTORY: Patient Active Problem List Diagnosis Date Noted ??? Serum creatinine above reference range 11/10/2022 I had the opportunity to see your patient for the aforementioned issues. In the interval since our last visit I have had the opportunity to review the following when available: -laboratory data, imaging studies, and cardiovascular data -current med list from the patient, the patient's pharmacy, [facility], and Care Everywhere During this visit I had the opportunity for a full review of systems and limited physical exam as outlined below, with the pertinent findings noted and others found to be negative or noncontributory to the current assessment of this patient. INTERVAL HISTORY/RECENT EVENTS/ACTIVE ISSUES: Since the last visit there have been no new medical problems, recent hospitalizations, or changes in medications. ROS: Patient reports having a bit of a cold currently. No headaches or dizziness. No chest pain or shortness of breath. No problems urinating, no blood in urine, no difficulty emptying bladder. No swelling in legs. Reports ongoing psoriasis for which he uses a topical steroid. No new rashes or skinlesions beyond existing psoriasis. MEDICATIONS: Outpatient Encounter Medications as of 01/29/2025 Medication Sig Dispense Refill ??? levothyroxine sodium (TIROSINT) 100 MCG capsule Take 100 mcg by mouth 1 (one) time each day ??? pantoprazole (PROTONIX) 40 MG EC tablet Take 40 mg by mouth 1 (one) time each day before breakfast Do not crush, chew, or split. ??? rosuvastatin (CRESTOR) 5 MG tablet Take 5 mg by mouth 1 (one) time each day No facility-administered encounter medications on file as of 01/29/2025. Focused Physical Exam: Vital signs: Blood pressure 130/78. Weight not documented. Cardiovascular: Heart rate and rhythm are normal. No murmurs, gallops, or rubs. Respiratory: No signs of respiratory distress. Extremities: No lower extremity edema. LABS/DATA: Recent labs and available data were reviewed, and abnormal findings were discussed with the patientduring the visit. SUMMARY: Based on the above findings, my interpretation of the available data, and my best efforts to reconcile the active medications, the following problems/diagnoses with recommendations for any further testing, treatment options, and follow-up are provided for your review: Chronic and Active Issues: 1. Serum creatinine above reference range CLINICAL INTERPRETATION AND SUMMARY: Assessment: Chronic kidney disease, non-proteinuric, with stable kidney function. Creatinine 1.5 mg/dL in October 2023, which is stable compared to 1.6 mg/dL in 2022, indicating no worsening of kidney function overtime. Blood pressure 130/78 mmHg, which is well-controlled. No proteinuria, anemia, or electrolyte abnormalities mentioned. Patient has psoriasis as a chronic condition. Plans/recommendations: ??? Kidney function monitoring: Annual follow-up visits to monitor kidney function stability ??? Laboratory testing: No immediate lab orders needed as October 2023 labs are sufficient for currentassessment ??? Blood pressure management: Continue current approach with dietary salt restriction; recommend increasing exercise and weight loss ??? General health maintenance: Continue weight management, regular exercise, and salt intake limitation ??? Follow-up: Return in one year for routine nephrology follow-up I thank you kindly for allowing me to participate in your patient's care. I will continue to monitor the active and chronic renal issues and make changes or suggestions based on their clinical status. I will keep you informed of their condition. No orders of the defined types were placed in this encounter. documented in this encounter Plan of Treatment Upcoming Encounters Date Type Department Care Team (Late st Contact Info) Description 02/04/2026 1:30 PM EST Office Visit [facility], [address] [place] [address] Brenton Ayala MD [address] [place] [phone] documented as of this encounter Visit Diagnoses Diagnosis Serum creatinine above reference range- Primary documented in this encounter Care Teams Performing Arts Road Manager Relationship Specialty Start Date End Date Miranda Rojas FNP [address] [place] [id number] PCP - General Nurse Practitioner 01/29/25 documented as of this encounter
--- NOTE | 2025-01-31 13:50 | MHC.PC.OV ---
Vital Signs 01/31/25 13:55 Height 6 ft Weight 250 lb 4 oz BMI 33.9 BP 117/71 Blood Pressure Location Lt brachial Position Sitting Respiration 16 Pulse 98 Pulse Source Pulse Oximeter Temp 97.7 F Temp Source Temporal Artery Scan Pulse Oximetry (%) 96 Oxygen Delivery Method Room Air Intake Visit Reasons: broncitis Intake Note: patient here c/o bronchitis Automatic Profile Sander Operator Required: No Allergies No Known Allergies (No Known Allergies*) Allergy (Verified 01/31/25 14:22) Medication List - Last Reconciled 01/31/25 by Miranda Day, [facility]- bisacodyl (Dulcolax (bisacodyl)) 20 mg (4 x 5 mg) PO ONCE 1 day diclofenac sodium 1% grams topical BID levothyroxine 100 mcg PO DAILY pantoprazole 40 mg PO BID 90 days polyethylene glycol 3350 (Miralax) 17 grams PO DAILY 1 day rosuvastatin (Crestor) 5 mg PO DAILY Tobacco use date assessed: 01/31/25 Dental Screening Dental Screen Date: 01/31/25 Did you have a dental visit in the last 12 months?: Yes Did you have a dental problem in the last 6 months where you did not have access to dental care?: No Was dental information given to patient?: Patient has dentist HPI HPI Comments History of Present Illness Details 54-year-old male with nonalcoholic liver obesity, GERD, hypothyroidism, hyperlipidemia, vitamin-D deficiency, psoriasis, diverticulosis, renal calculi, elevated serum Status post lap cholecystectomy 2022 Health maintenance Colonoscopy January 2020 repeat in 5 years due January 2025 EGD 01/05/2019 GASTRITIS AND 2 1 CM HEALING ESOPHAGEAL EROSIONS WITH NO JOHNSTON'S PFT- a mild degree of restrictive pulmonary disorder is noted, which may be related to obesity; no obstructive airway disorder Echo 08/2017 wnl Tdap 2022 Flu 01/2025 Uro - referred today for varicocele, US 08/2024 Chief Complaint The patient presents with flu-like symptoms that began last Wednesday. History The patient is a 54 year old male presenting with flu-like symptoms. Acute viral upper respiratory infection: - The patient reports the onset of symptoms last Wednesday, after returning from a cruise on Wednesday. - His oldest grandson had a fever around the same time. - Symptoms initially began as a cold with some nasal congestion. - The condition progressed, and by last Wednesday, he developed a severe cough, productive of thick mucus, particularly in the morning. - He also experienced a burning sensation across his chest, an episode of dizziness upon standing, and pressure in his left ear. - The patient has been using rstu-[id number]-[id number] cold remedies with some relief. - He reports significant fatigue, stating he went to bed at 6:15 PM one evening and slept through the night. - The patient has a history of COVID-19 and states these symptoms are different. - He received his influenza vaccination about a week before his cruise. Past Medical History - History of COVID-19. - Immunizations: Received influenza vaccine prior to a recent cruise. Review of Systems - General: Reports fatigue. - HEENT: Reports nasal congestion and pressure in the left ear. Denies facial pressure or pain when bending over. - Respiratory: Reports a severe, productive cough with thick mucus and a burning sensation in the chest. Denies brown or greenish sputum. - Neurological: Reports an episode of dizziness. Physical Exam General: Awake, alert. No apparent distress Eyes: Sclera and conjunctiva clear bilaterally Nose: Nares patent, turbinates within normal limits, no sinus tenderness with palpation bilaterally Ears: Tympanic membranes intact and clear bilaterally Throat: Moist mucosa membrane, pharynx within normal limits Cardiovascular: Regular rate and rhythm Respiratory: Clear to auscultation bilaterally, tight cough noted during exam w/o distress Medical Decision Making The patient is a 54-year-old male presenting with a one-week history of progressive upper respiratory symptoms, including a severe cough productive of thick mucus, chest burning, and fatigue, which began after a cruise. The clinical presentation is consistent with a viral upper respiratory infection, likely caused by one of the circulating viruses in the community such as parainfluenza, enterovirus, or rhinovirus. Influenza is considered unlikely given the patient's recent vaccination and the low prevalence in the community at this time. COVID-19 is also less likely based on the patient's description of symptoms compared to his previous infection, and a swab was deferred as management would remain supportive regardless. The physical exam reveals clear lungs, ruling out acute bronchitis at present, but the degree of inflammation warrants intervention to prevent progression. The plan is to address the underlying inflammation with a short course of oral prednisone. A prescription antitussive, Tessalon Perles, is provided for symptomatic relief of the cough. The patient is encouraged to continue supportive care with OTC products like Zicam. A contingency plan is in place to prescribe antibiotics without an additional visit if symptoms fail to improve or worsen in six days, which would suggest a secondary bacterial infection. Plan 1. Acute Viral Upper Respiratory Infection - The patient's symptoms are consistent with a viral URI, likely parainfluenza, enterovirus, or rhinovirus. - The physical exam is reassuring, with clear lungs, but there is significant inflammation causing the severe cough and chest burning, putting him at risk for developing bronchitis. - Prescribed prednisone 40 mg (2 tablets) daily for 5 days to reduce inflammation, with instructions to take in the morning with food to prevent insomnia. - Prescribed Tessalon Perles to be taken up to three times a day as needed for cough. - Recommended continuing sgcs-cty-[id number] supportive care with Zicam or Airborne. - The patient was instructed to send a message if symptoms do not improve or worsen in 6 days for a possible antibiotic prescription, without needing a follow-up visit. Patient Instructions - Take two prednisone tablets (40 mg total) together once a day for five days. It is best to take this in the morning with a little food, as taking it at night might keep you awake. - You can start taking the prescription cough medicine (Tessalon) tonight. Take it up to three times a day as you need it for your cough. - Continue using wmea-vql-sirtjuf remedies like Zicam or Airborne to help your immune system. - If your symptoms are not better or have gotten worse in six days, please send a message through the portal. We may prescribe an antibiotic at that time without you needing to come back in for a visit. Consent Patient was informed and verbally consented to the use of an ambient scribe for clinic note documentation during this visit. Total time spent caring for the patient today was 30 minutes. This includes time spent before the visit reviewing the chart, time spent during the visit, and time spent after the visit on documentation, reviewing laboratory results, diagnostic imaging, medications, performing a medically necessary evaluation, counseling on diagnoses, care coordination, ordering appropriate tests, ordering appropriate medications, review of tests performed by other providers, reporting test results with the patient, communication with other healthcare providers. [facility] Medical History Benign colon polyp History of PFTs Diverticulosis Hematoma GERD (gastroesophageal reflux disease) Renal calculi Fatty liver Thyroid disease Elevated cholesterol Surgical History (Updated 10/17/24 @ 07:14 by Miranda Day [facility]) History of colonoscopy (~2019) History of esophagogastroduodenoscopy (EGD) History of evacuation of hematoma Hx laparoscopic cholecystectomy (01/04/23) Family History Father CAD (coronary artery disease) Mother Hx of colon cancer, stage IV Social History Household Members: Spouse and Children Both parents involved: No Caregiver staying overnight: No Housing: House Are you a primary health care / medical job titles to a significant other at home: No Do you presently have visiting nurse or other home services: No 75 years or older and lives alone: No Alcohol intake: current Alcohol intake frequency: holidays/special occasions only Patient Tobacco Use Status: Never used Tobacco e-Cigarette/Vaping Use: Never Used Second Hand Smoke Exposure: No service: No Current occupational status: employed 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 Current occupational exposures/hazards: Yes Sexual orientation: Unable to collect Gender identity: Unable to collect Cognitive needs: No Hearing needs: No Vision needs: No Questionnaire Thrive Questionnaire Date Thrive assessed: 04/10/24 I am a: Patient What is your living situation today?: I have a steady place to live Within the past 12 months, did the food you bought not last and you didn't have the money to get more?: Never true Within the past 12 months, did you worry whether your food would run out before you got money to buy more?: Never true Do you have trouble paying for medicines?: No Do you have trouble getting transportation to medical appointments?: No Do you have trouble paying your heating and electricity bill?: No Do you have trouble taking care of your child, family member or friend?: No Do you have trouble with day-to-day activities such as bathing, preparing meals, shopping, managing finances, etc.?: No Are you currently unemployed and looking for a job?: No Are you interested in more education?: No Please select the resources that you would like help with: None Currently or been in a relationship where the following occur: No concerns reported THRIVE Score: 0 JANESSA-7 AMB Questionnaire JANESSA-7 Date JANESSA - 7 assessed: 04/10/24 Source: Developed by Drs. Clint Kelley, Marielle Velazquez, Yoan Sampson and colleagues, with an educational jose e from [employer]. Physical exam (Primary Care) Vital Signs: Last Vital Signs Temp 97.7 F 01/31/25 13:55 Pulse 98 01/31/25 13:55 Resp 16 01/31/25 13:55 BP 117/71 01/31/25 13:55 Pulse Ox 96 01/31/25 13:55 Oxygen Delivery Method Room Air 01/31/25 13:55 BMI result Body Mass Index 33.9 Tobacco/Smoking Status: Tobacco use Status Tobacco use date assessed 01/31/25 01/31/25 13:58 Patient Tobacco Use Status Never used Tobacco 01/31/25 13:51 e-Cigarette/Vaping Use Never Used 01/31/25 13:51 Thrive Assessment: Date of Thrive Assessment Date Thrive assessed 04/10/24 01/31/25 13:51 Currently or been in a relationship where the following occur: No concerns reported Coding Level of Care Code Est Pt Level 4 (64183) Complex EM visit Add On G2211 Diagnoses Viral URI with cough J06.9 Assessment & Plan Assessment & Plan (1) Viral URI with cough: Code(s): J06.9 - Acute upper respiratory infection, unspecified Plan . Medications: New benzonatate 100 mg PO TID PRN 30 caps 1RF cough 10 days prednisone 40 mg (2 x 20 mg) PO DAILY 10 tabs 0RF
[2025-01-31 13:55] VITALS: BP 117/71; PULSE 98; RESP 16; TEMP 36.5; O2SAT 96; BMI 33.9
--- OUTSIDE RECORDS SUMMARY | 2025-01-31 17:32 | XMS_ITS | Clinical Summary ---
Author Organization [facility] Address [address] [place] [address] Phone Care Team Providers Care Jewel Bearing Driller Name Role Phone Miranda Rojas Primary Care Provider Medications levothyroxine sodium (TIROSINT) 100 MCG capsule [...] Encounters Date Type Department Care Team Description 01/29/2025 4:00 PM EDT Office Visit [facility] [address] [place] [address] Brenton Ayala MD Serum creatinine above reference range (Primary Dx) 01/15/2025 Orders Only [facility] [address] [place] [address] Gisella Driver MA Serum creatinine above reference range (Primary Dx); Albuminuria, not otherwise specified; Stage 3 chronic kidney disease, not otherwise specified (HCC) 11/08/2024 Orders Only [facility] [address] [place] [address] Gisella Driver MA Serum creatinine above [...] Visit [facility] [address] [place] [address] Brenton Ayala MD [address] [facility] [address] [place] [address] Health Maintenance Due Date Last Done Comments Hepatitis B Vaccine (1 of 3 - 19+ 3-dose series) 12/28 Pneumococcal Vaccine: 50+ Years (1 of 2 - PCV) 991 Colorectal Cancer Screening: Annual FOBT 12/28/2020 Colorectal Cancer Screening: Colonoscopy 12/28/2020 Colorectal Cancer Screening: Sigmoidoscopy 12/28/2020 Influenza Vaccine (#1) 2024 Insurance [facility] Care Teams Jewel Bearing Driller Relationship Specialty Start Date End Date Rojas, Miranda, [employer]INCIPAL [address] [place] [address] PCP - General Nurse Practitioner 01/29/25
--- OUTSIDE RECORDS SUMMARY | 2025-01-31 17:32 | XMS_ITS | Encounter Summary ---
Author Organization [facility] [place], [place] [address] Phone Care Team Providers Care Denture Laboratory Technician Name Role Phone Miranda Rojas Primary Care Provider [phone] Encounter Details Date Type Department Care Team (Late st Contact Info) Description 11/11/2022 Documentation Only [facility] [address] [place] [address] Brenton Ayala MD [address] [place] [address] [place] [phone] Social History Tobacco Use Types Packs/Day Years [...] Visit [facility] [address] [place] [address] Brenton Ayala MD [address] [facility] [place] [address] documented as of this encounter Visit Diagnoses Not on filedocumented in this encounter Care Teams Denture Laboratory Technician Relationship Specialty Start Date End Date Miranda Rojas FNP [address] [place] [address] PCP - General Nurse Practitioner 01/29/25 documented as of this encounter
--- OUTSIDE RECORDS SUMMARY | 2025-01-31 17:32 | XMS_ITS | Patient Health Record ---
Author Organization [facility] Address [address] [facility] [address] [place] [address] Care Team Providers Care Tilesetter Name Role Phone Amy Ruben Primary Care Provider UnavailBITA Pacheco Unavailable [phone] Allergies No Known Allergies Reason For Referral No Information Medications Medication SIG (Take, Route, Frequency, Duration) Notes Start Date End Date Status Rosuvastatin Calcium 5 MG 1 tablet Orall y Once a day Active Diclofenac Sodium 1 % as directed Corrections Corporal ally twice daily; Duration: 30 days 10/06/2023 [...] Date Coverage End Date [employer] [address] [place] [phone] Lisandro Paige Self - patient is the [...]
--- OUTSIDE RECORDS SUMMARY | 2025-01-31 17:32 | XMS_ITS | Clinical Summary ---
Author Organization [facility] [address] [facility] Address [address] [place] [address] Phone Care Team Providers Care Lead Miner Name Role Phone Miranda Day Primary Care [...] Health Maintenance Due Date Last Done Comments Colorectal Cancer Screening: Colonoscopy 1971 Hepatitis B Vaccines (1 of 3 - 19+ 3-dose series) 12/28/1990 Pneumococcal Vaccine: 50+ Years (1 of 1 - PCV) 12/28/2021 Zoster Vaccines (1 of 2) 12/28/2021 Depression Screening 04/05/2024 Cholesterol Screening (Lipid Panel) 07/05/2024 HIV Screening 07/05/2024 Hepatitis C Screening [...] age to complete this topic Insurance [facility] [place] [address] [employer] Care Teams Lead Miner Relationship Specialty Start Date End Date Miranda Day FNP [address] [place] [address] PCP - General Nurse Practitioner 07/06/24
--- OUTSIDE RECORDS SUMMARY | 2025-01-31 17:33 | XMS_ITS | Encounter Summary ---
Author Organization [facility] Address [address] [place] [address] [place] [address] Phone Care Team Providers Care Development Architect Name Role Phone Miranda Rojas Primary Care Provider Encounter Details Date Type Department Care Team (Late st Contact Info) Description 09/22/2022 Documentation Only [facility] [address] [place] [address] Renea Coffman [address] [place] [phone] Social History Tobacco Use Types Packs/Day Years [...] Visit [facility] [address] [place] [address] Brenton Ayala MD [address] [place] [address] [place] [address] documented as of this encounter Visit Diagnoses Not on filedocumented in this encounter Care Teams Development Architect Relationship Specialty Start Date End Date Miranda Rojas FNP [address] [place] [id number] PCP - General Nurse Practitioner 01/29/25 documented as of this encounter
== END 2025-01-31 16:15 | disposition home or self-care (01) ==
LOC: HO.HMCFM 13:45
PROVIDERS: PCP Nurse Practitioner Family; Visit Provider Nurse Practitioner Family
DX: J06.9 Acute upper respiratory infection, unspecified (principal)

== ENCOUNTER 2025-03-21 06:15 | Outpatient (REF) | payer OTHER, SELFPAY ==
--- OUTSIDE RECORDS SUMMARY | 2023-12-22 04:15 | XMS_ITS ---
Author Organization [facility] Address [address] [address] Care Team Providers Care Egg Breaker Name Role Phone Ruben Reyes Primary Care Provider UnavailBITA Pacheco [phone] REASON FOR VISIT 6wk Encounters Encounter Location Date Provider Diagnosis [facility] [address] [address] 12/22/2023 BITA LUNA Plan Of Treatment No Information Progress Notes * Lisandro MORENODOB:1970 (54 yo M)Acc No.[id number]:12/22/2023 Progress Note Patient: Lisandro FARIA Provider: Cortney Luna DPM :1970 A ge:52 Y S ex:Male Date:12/22/2023 Address: [address] [id number] Pcp:Ruben Reyes Subjective: * Chief Complaints: * 1 . 6wk. * Medical History: Objective: * Vitals: Assessment: Plan: * Treatment: * Billing Information: * Visit Code: * Procedure Codes: * Electronic signature of GABE LUNA D.P.M on 03/21/2025 at 06:18 AM EST Sign off status: Pending * Provider: Cortney Luna DPM Date: 0 12/22/2023 Generated for Elizabeth arellano/Joselyn/eTransmitting on: 05/22/2024 06:18 AM EST
--- OUTSIDE RECORDS SUMMARY | 2025-03-21 06:19 | XMS_ITS | Patient Health Record ---
Author Organization [facility] Address [address] [facility] [address] [place] [address] Care Team Providers Care Medical Field Representative Name Role Phone Amy Ruben Primary Care Provider UnavailBITA Pacheco Unavailable [phone] Allergies No Known Allergies Reason For Referral No Information Medications Medication SIG (Take, Route, Frequency, Duration) Notes Start Date End Date Status Rosuvastatin Calcium 5 MG 1 tablet Orall y Once a day Active Diclofenac Sodium 1 % as directed Distance Learning Technician ally twice daily; Duration: 30 days 10/06/2023 [...] Date Coverage End Date C[employer] [address] [place] [phone] Lisandro Paige Self - patient is the [...]
--- OUTSIDE RECORDS SUMMARY | 2025-03-21 06:19 | XMS_ITS | Clinical Summary ---
Author Organization [facility] [address] [facility] Address [address] [place] [address] Phone Care Team Providers Care Art Gallery Internship Name Role Phone Miranda Day Primary Care [...] age to complete this topic Insurance [facility] [place] [place] [id number] CIG[employer] Care Teams Art Gallery Internship Relationship Specialty Start Date End Date Miranda Day FNP [address] [place] [address] PCP - General Nurse Practitioner 07/06/24
[2025-03-21 07:16] LABS: Hematocrit 44.4 % (42.0-52.0); Hemoglobin 15.0 g/dl (14.0-18.0); Mean Corpuscular HGB Conc 33.8 g/dl (31.0-36.0); Mean Corpuscular Hemoglobin 30.9 pg (27.0-33.0); Mean Corpuscular Volume 91.5 fL (80.0-98.0); NRBC Abs Auto 0.000 X10*3/uL (0.0-0.012); NRBC Pct Auto 0.0 /100WBC (0.0-0.2); Platelet Count 173 X10*3/uL (160-400); Red Blood Count 4.85 X10*6/uL (4.60-5.80); White Blood Count 5.9 X10*3/uL (4.8-10.8)
[2025-03-21 07:44] LABS: Alanine Aminotransferase 47 U/L (0-40); Albumin Level 4.7 g/dL (3.5-5.0); Alkaline Phosphatase 73 U/L (39-117); Anion Gap 12 (12-20); Aspartate Amino Transferase 28 U/L (5-37); Blood Urea Nitrogen 20 mg/dL (9-16); Calcium 9.3 mg/dL (8.4-10.2); Carbon Dioxide 25 mmol/L (22-29); Chloride 109 mmol/L (96-108); Cholesterol 148 mg/dL (<200); Estimated Glomerular Filt Rate 48; HDL Cholesterol 51 mg/dL (>40); Iron 77 mcg/dL (45-160); Percent Iron Saturation 28 % (15-50); Potassium 4.2 mmol/L (3.3-5.1); Sodium 142 mmol/L (135-145); Total Iron Binding Capacity 280 mcg/dL (228-428); Total Protein 7.2 g/dL (6.5-8.0); Triglycerides 105 mg/dL (<150); Unsaturated Iron Binding 203 ug/dL
[2025-03-21 08:09] LABS: Microalbum/Creatinine Ratio Ur 3.1 ug/mg cr (<30)
[2025-03-21 08:13] LABS: Folate 6.5 ng/mL (> or = 4.0); Vitamin B12 350 pg/mL (200-900)
== END 2025-03-21 06:16 ==
LOC: HO.LAB 06:15
PROVIDERS: PCP Nurse Practitioner Family; Visit Provider Nurse Practitioner Family
DX: E78.2 Mixed hyperlipidemia (principal); E03.9 Hypothyroidism, unspecified; E55.9 Vitamin D deficiency, unspecified; Z13.1 Encounter for screening for diabetes mellitus; Z13.0 Encounter for screening for diseases of the blood and blood-forming organs and certain disorders involving the immune mechanism
CPT/HCPCS: 36415; 80053; 80061; 82043; 82570; 82607; 82746; 83036; 83540; 84443; 85027

== ENCOUNTER 2025-03-22 09:26 | Outpatient (AMB) | payer OTHER, SELFPAY ==
--- NOTE | 2025-03-22 09:29 | A.OFFVIS_ITS ---
Vital Signs 03/22/25 09:30 03/22/25 09:47 Height 6 ft Weight 249 lb 1.957 oz 249 lb BMI 33.8 BP 122/72 120/74 Blood Pressure Location Lt brachial Lt brachial Position Sitting Sitting Pulse 56 Intake Visit Reasons: 6m Intake Note: Lisandro presents in the office as a new consult for Elevated LFTs and lab results. Patient cc: States that he is not having any concerns since the last visit. Therapy Site Coordinator Required: No Allergies No Known Allergies (No Known Allergies*) Allergy (Verified 03/22/25 09:41) Medication List - Last Reconciled 03/22/25 by Tawana Ray MD diclofenac sodium 1% grams topical BID levothyroxine 100 mcg PO DAILY pantoprazole 40 mg PO BID 90 days rosuvastatin (Crestor) 5 mg PO DAILY HPI HPI 6m: Details: GI CLINIC VISIT FOR THIS 54-YEAR-OLD MALE FOR FOLLOW-UP OF GERD, ASYMPTOMATIC GALLSTONES AND COLON CANCER SCREENING. Reason:US shows large gallstone, fatty liver and pancreas, + pain 01/04/23 Pt had a Lap Brittany by Dr Matos ?CHRONIC ILLNESSES:?psoriasis, vitamin D deficiency, mixed hyperlipidemia, acquired hypothyroidism, GERD without esophagitis, obesity due to excess calories - BMI 31.0-31.9 in adult, RALPH, elevated bilirubin, substernal chest pain, left flank pain - h/o kidney stones 2009, calculus of gallbladder with biliary obstruction, without cholecystitis, PFT- a mild degree of restrictive pulmonary disorder is noted, which may be related to obesity; no obstructive airway disorder, Echo 08/2017 wnl TODAY'S VISIT: Denies heartburn or dysphagia Denies abdominal pain Pt denies past hx of liver disease or hepatitis. Denies known FH of liver disease Taking azithromycin for bronchitis and will finish tomorrow Pt scheduled for an earlier FU appointment after PCP's message: On 10/11/23 @ 16:18 Miranda Day Wrote To LADONNA Ray Hi [place] patient w/ Dr Ray He has some abnormal labs ferritin, bili, LDH (see September labs). I want him to be evaluated before his March appt Please reach out to patient directly. Or myself should you have questions. Thanks! Miranda LEUNG surgery went well. RUQ pain has resolved since the surgery Denies heartburn or dysphagia PAST VISIT: Has been having intermittent episodes of sharp 6-7/10 RUQ pain since the end of August. First episode 20 min after eating dinner. Pain started in the RUQ and radiated to the epigastrium. Pain became worse on moving. 2nd episode woke him up from sleep and was associated with nausea and cold sweats.Has not had additional episodes since then Pt denies vomiting or fever Has been taking VItamin D every 2-3 days Taking Pantoprazole once a day and takes a 2nd dose prn He was sick with COVID over Thanksgiving despite vaccination. Denies abdominal pain or GERD symptoms Rare breakthrough symptoms related to diet. Takes Pantoprazole at night and sometimes during the day for breakthrough symptoms. Mother had GB removed a few weeks ago. Not eager to have GB surgery yet. Doing good - no problems Stress test at [facility] and whole body US were good Heartburn is well controlled with the pantoprazole 40 mg twice daily. Had a physical exam 3 weeks ago. Noted burning abdominal pain on the left side which is bouncing all over his body - epigastric/RUQ/LUQ and lower chest shoulders. Pain can vary between burni ng and stinging. Some days are good and somedays are not so good. Pain resolves at night and able to sleep without any problems. Pain can last all day on some days. Can have intermittent throat irritation Sometimes improves after eating. At times, he does not feel good after eating. His weight has been stable at 232 lb - advised weight reduction of 10-15 lb due to fatty liver ? Stopped Zantac and started having some heartburn. ? Using Omeprazole for the past 4 days and appears to be helping ? Denies dysphagia. ? Finished with antbiotics for a cold followed by cough. ? 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 ? Denies recent change in bowel habits, black stools or rectal bleeding. ? Denies known FH of colon polyps or colon cancer. ? Maternal uncle recently diagnosed with abdominal/liver cancer - primary site is unclear. ? Denies pas issues with anesthesia. ? Denies major cardiac or pulmonary problem ? LABS IN [facility]: 10/30/2018 normal CBC, ? 11/08/18 BUN 8, creatinine 1.47, bilirubin 1.3, AST 21, ALT 26, alkaline phosphatase 69, albumin 4.8 ? 06/2017: Stool for H pylori antigen was negative. ?IMAGING STUDIES:? 09/22/22 ABD US SHOWED: GALLBLADDER: The gallbladder is physiologically distended. There is a single large 3.5 x 2.4 x 2.9 cm nonmobile gallstone present. No evidence of gallbladder wall thickening or pericholecystic fluid. Garrett's sign is negative. COMMON BILE DUCT: Normal in caliber measuring 0.65 cm in diameter. RIGHT KIDNEY: Normal. No hydronephrosis. No renal calculi or focal parenchymal lesions. The kidney measures 10.1 cm in maximum dimension. FREE FLUID: None. US/US abdomen limited IMPRESSION: 1.? Hepatic steatosis with focal fatty sparing around the gallbladder. 2.? Cholelithiasis without evidence of cholecystitis. ?ENDOSCOPIC STUDIES: 01/22/20 COLONOSCOPY SHOWED: ? One small adenomatous polyp was removed ? Moderate diverticulosis seen in the sigmoid colon ? Moderate hemorrhoids on retroflexed exam. ? Plan:? Patient has an appointment on 03/25/20 in the GI Clinic with Tawana Ray M.D.-. ? Repeat Colonoscopy interval based on path results - in 5 years if polyps are adenomatous and 10 years if polyps are hyperplastic. ? Above findings were reviewed with the patient and colon polyps and diverticulosis handouts were given in the discharge area 01/05/19 EGD SHOWED:? Esophagus: GE junction at 40 cms. Two 1 cms healing erosions. Irregular Z line ? - biopsied to check for Rene s. ? Stomach: Moderate diffuse gastric erythema with prominent gastric folds with ? small amount of heme in the stomach - biopsies were obtained from the gastric ? folds and antrum. Grade 2 flap ? valve on retroflexed examination of the cardia. ? Duodenum: Normal bulb and descending duodenum ? Intervention: Biopsies as noted above ? Impression and Post Procedure Diagnosis: ? Endoscopy Findings: ? ESOPHAGUS: Two small healing erosions and irregular Z line ? STOMACH: Diffuse gastritis with prominent gastric folds ? DUODENUM: Normal ? Plan: ? Await pathology results ? Patient has an appointment on 01/27/19 in the GI Clinic with Tawana Ray M.D ? Above findings were reviewed with the patient and GERD and Gastritis handouts ? were provided in the discharge area. ?BIOPSIES SHOWED: ? A. Stomach, biopsies: Reactive gastropathy with background mild chronic ? inactive inflammation; no Helicobacter organisms seen. ? B. Stomach, gastric fold, biopsies: Oxyntic type mucosa with mild chronic ? inactive inflammation; no Helicobacter organism seen. ? C. Esophagus, distal, biopsies: Esophagogastric junctional mucosa with mild ? chronic inflammation; squamous epithelium within normal limits; negative for ? intestinal metaplasia; negative for dysplas PFSH Medical History Benign colon polyp History of PFTs Diverticulosis Hematoma GERD (gastroesophageal reflux disease) Renal calculi Fatty liver Thyroid disease Elevated cholesterol Surgical History Hx laparoscopic cholecystectomy (01/04/23) History of colonoscopy (~2020) History of evacuation of hematoma History of esophagogastroduodenoscopy (EGD) Family History Father CAD (coronary artery disease) Mother Hx of colon cancer, stage IV Social History Household Members: Spouse and Children Both parents involved: No Caregiver staying overnight: No Housing: House Are you a primary director long term care to a significant other at home: No Do you presently have visiting nurse or other home services: No 75 years or older and lives alone: No Alcohol intake: current Alcohol intake frequency: holidays/special occasions only Patient Tobacco Use Status: Never used Tobacco e-Cigarette/Vaping Use: Never Used Second Hand Smoke Exposure: No service: No Current occupational status: employed 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 Current occupational exposures/hazards: Yes Sexual orientation: Unable to collect Gender identity: Unable to collect Cognitive needs: No Hearing needs: No Vision needs: No Review of Systems Const All systems reviewed & are unremarkable except as noted in HPI and below Physical Exam Vital Signs: Last Vital Signs Pulse 56 03/22/25 09:30 BP 120/74 03/22/25 09:47 BMI result Body Mass Index 33.8 Const General: healthy appearing and no acute distress Nutritional Appearance: obese Orientation/consciousness: patient oriented x3 Limitations: no limitations HEENT Head: Yes normal to inspection Ears: hearing grossly normal bilaterally Eyes Sclerae: sclerae normal Pupils: Equal, round and reactive pupils present Neck Neck: Yes normal visual inspection Chest Chest palpation & inspection: normal inspection of the chest Resp Effort & Inspection: normal respiratory effort Auscultation: clear to auscultation bilaterally Cardio Palpation: normal PMI Rate: regular rate Rhythm: regular rhythm Heart sounds: S1 normal heart sound present, S2 normal heart sound present and no murmurs GI Palpation (GI): Soft to palpation, nontender and No hepatosplenomegaly present Auscultation: normal bowel sounds Rectal Exam - Male: Yes deferred Skin General skin exam: no rashes or lesions noted Neuro General: patient oriented x3, gait normal and moves all extremities Cranial nerves: Yes Equal, round and reactive pupils present Psych Appearance: grossly normal Mental Status: mental status grossly normal Assessment & Plan Assessment & Plan (1) GERD without esophagitis: Comment: Continue Pantoprazole 40 mg twice daily Code(s): K21.9 - Gastro-esophageal reflux disease without esophagitis Category: Medical (2) Elevated LFTs: Code(s): R79.89 - Other specified abnormal findings of blood chemistry Category: Medical (3) NAFL (nonalcoholic fatty liver): Code(s): K76.0 - Fatty (change of) liver, not elsewhere classified Category: Medical (4) Simple hepatic cyst: Onset Date: ~08/2024 Comment: US AND CT SCAN 08/2024 [place] Code(s): K76.89 - Other specified diseases of liver Category: Medical (5) History of colon polyps: Comment: 01/22 one small tubular adenoma was removed during colonoscopy. Repeat colonoscopy is advised in 5 years (due in 01/27) Code(s): Z86.010 - Personal history of colon polyps Category: Medical (6) Hemorrhoids: Code(s): K64.9 - Unspecified hemorrhoids Category: Medical Qualifiers: Hemorrhoid type: first degree Qualified Code(s): K64.0 - First degree hemorrhoids (7) Diverticulosis: Code(s): K57.90 - Diverticulosis of intestine, part unspecified, without perforation or abscess without bleeding Category: Medical Plan 54 YM with psoriasis, vitamin D deficiency, mixed hyperlipidemia, acquired h ypothyroidism, GERD without esophagitis, obesity due to excess calories - BMI 32.3 in adult, RALPH, elevated bilirubin, substernal chest pain, left flank pain - h/o kidney stones 2009, calculus of gallbladder without cholecystitis, Echo 08/2017 wnl. Patient is followed in GI for non-cardiac chest pain associated with symptoms of heartburn, fatty liver and possible fat in the pancreas and asymptomatic gallstone. Non-cardiac chest pain is likely related to esophageal spasm associated with the GERD. Symptoms improved with ranitidine 150 mg at bedtime. He noted recurrent heartburn on stopping ranitidine since it was not covered by his insurance. Upper endoscopy showed gastritis and two 1 cms healing esophageal erosions and no Rene's. Omeprazole 20 mg daily was prescribed and patient has noted breakthrough symptoms. Fatty liver with suspected fat in the pancreas likely related to obesity. Recent LFTs were normal. Patient was advised to work on weight reduction. Patient was advised to increase pantoprazole to 40? mg twice daily and decrease vitamin-D to every other day due to high levels in the past 05/09/20 Pt called and abdominal US results were reviewed with him US reviewed with radiology - gallstone size is 2.5 cms (increased from 1.75 cms in 2019. He may need a prophylactic Lap Brittany if gallstone is > 3 cms due to increased risk of GB cancer associated with large gallstones. Pt stated he is feeling better - has been trying to take PPI twice a day which has helped (sometimes he forgets to take it) 09/2021 ABD US SHOWED: Gallstones. Echogenic liver probably representing fatty infiltration.? Largest gallstone is almost 3 cms. 10/09/22 Intermittent episodes of RUQ pain and gallstone size increased to 3.5 cms 01/04/23 Pt had a Lap Brittany by Dr Matos 03/11/23 Abd pain resolved after Lap brittany 11/26/23 Pt seen for evaluation of elevated TB, ferritin and LDH. Pt denies past or family hx of liver disaese. 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 Mild elevation of ALT, ferritin, and LDH likely due to steatohepatitis. I will check iron studies, hepatitis serologies, genetic testing for hemochromatosis and abd US with elastography to rule out cirrhosis 03/23/24 Elevated LFTs - likely fatty liver related to obesity and pt advised to work on weight loss. Increase in total bilirubin with predominent increase in indirect bili - likely due to Gilbert's syndrome Hepatitis serologies were negative except immunity to hepatitis-B - due to past infection/immunization Normal iron studies with ferritin of 241 Genetic screen for hemochromatosis was negative. Liver fibrosis score of 0.24, liver fibrosis stage F0-F1 Abdominal ultrasound with elastography showed: 1. There is generalized increase in hepatic echotexture, consistent with fatty infiltration or hepatocellular disease. Please correlate clinically. No focal hepatic mass or intrahepatic biliary dilatation is seen. 2. Elastography: Liver elastography measurements are consistent with a minimal risk for clinically significant liver fibrosis (METAVIR Stage F0-F1). 3. The gallbladder is surgically absent. 09/21/24 Pt advised to schedule a colonoscopy for follow-up of colon polyps. He would like to schedule in January after he returns from a cruise to the [facility] Colonoscopy scheduled 04/30/2025 03/22/25 Elevated LFTs and positive JING ? related to Crestor Pt advised to hold Crestor x 6 weeks and have repeat LFTs and JING checked after May 06 FU in 5 months Orders: Orders Liver Panel 05/06/25 R79.89 - Other specified abnormal findings of blood chemistry JING Reflex Titer and Pattern 05/06/25 R79.89 - Other specified abnormal findings of blood chemistry Coding Level of Care Code Est Pt Level 3 (99484) Diagnoses GERD without esophagitis K21.9 Elevated LFTs R79.89 NAFL (nonalcoholic fatty liver) K76.0 Simple hepatic cyst K76.89 History of colon polyps Z86.010 Grade I hemorrhoids K64.0 Hemorrhoid type: first degree Diverticulosis K57.90 Time Spent (min) 16
[2025-03-22 09:30] VITALS: BP 122/72; PULSE 56; BMI 33.8
[2025-03-22 09:47] VITALS: BP 120/74
--- OUTSIDE RECORDS SUMMARY | 2025-03-22 10:50 | XMS_ITS | Encounter Summary ---
Author Organization [facility], [place] [address] Phone Care Team Providers Care Yarn Handler Name Role Phone Miranda Rojas Primary Care Provider Encounter Details Date Type Department Care Team (Late st Contact Info) Description 11/11/2022 Documentation Only [facility] [address] [address] Brenton Ayala MD [address] [place] [address] [place] [address] Social History Tobacco Use Types Packs/Day Years [...] Visit [facility] [address] [place] [address] Brenton Ayala MD [address] [place] [address] documented as of this encounter Visit Diagnoses Not on filedocumented in this encounter Care Teams Yarn Handler Relationship Specialty Start Date End Date Miranda Rojas FNP [address] [place] [address] PCP - General Nurse Practitioner 01/29/25 documented as of this encounter
--- OUTSIDE RECORDS SUMMARY | 2025-03-22 10:50 | XMS_ITS | Clinical Summary ---
Author Organization [facility] Address [address] [place] [address] Phone Care Team Providers Care Extrusion Die Repairer Name Role Phone Miranda Rojas Primary Care [...] Visit [facility] [address] [place] [phone] Brenton Ayala MD Serum creatinine above reference range (Primary Dx) 01/15/2025 Orders Only [facility] [address] [place] [phone] Gisella Driver MA Serum creatinine above reference range (Primary Dx); Albuminuria, not otherwise specified; Stage 3 chronic kidney disease, not otherwise specified (HCC) from Last 3 Months Social History Tobacco [...] Visit [facility] [place], [address] [place] [phone] Brenton Ayala MD [address] [place] [address] Health Maintenance Due Date Last Done Comments Hepatitis B Vaccine (1 of 3 - 19+ 3-dose series) 12/28 Pneumococcal Vaccine: 50+ Years (1 of 2 - PCV) 991 Colorectal Cancer Screening: Annual FOBT 12/28/2020 Colorectal Cancer Screening: Colonoscopy 12/28/2020 Colorectal Cancer Screening: Sigmoidoscopy 12/28/2020 Influenza Vaccine (#1) 2024 Insurance [facility] Care Teams Extrusion Die Repairer Relationship Specialty Start Date End Date Miranda Rojas FNP [address] [place] [address] [phone] PCP - General Nurse Practitioner 01/29/25
--- OUTSIDE RECORDS SUMMARY | 2025-03-22 10:50 | XMS_ITS | Encounter Summary ---
Author Organization [facility] Address [address] [place] [address] [place] [address] Phone Care Team Providers Care Ice Cream Van Vendor Name Role Phone Miranda Rojas Primary Care Provider Encounter Details Date Type Department Care Team (Late st Contact Info) Description 09/22/2022 Documentation Only [facility] [address] [place] [address] Renea Coffman [address] [place] [phone] Social History Tobacco Use Types Packs/Day Years [...] Visit [facility] [address] [place] [address] Brenton Ayala MD [address] [place] [address] [place] [address] documented as of this encounter Visit Diagnoses Not on filedocumented in this encounter Care Teams Ice Cream Van Vendor Relationship Specialty Start Date End Date Miranda Rojas FNP [address] [place] [phone] PCP - General Nurse Practitioner 01/29/25 documented as of this encounter
--- OUTSIDE RECORDS SUMMARY | 2025-03-22 10:50 | XMS_ITS | Clinical Summary ---
Author Organization [facility] [address] [facility] Address [address] [place] [address] Phone Care Team Providers Care Senior Manufacturing Technician Name Role Phone Miranda Day Primary Care Provider [phone] Social History Tobacco Use Types Packs/Day Years [...] age to complete this topic Insurance [facility] [place] [place] [id number] [employer] Care Teams Senior Manufacturing Technician Relationship Specialty Start Date End Date Miranda Day FNP [address] [place] [address] PCP - General Nurse Practitioner 07/06/24
== END 2025-03-22 10:11 | disposition home or self-care (01) ==
LOC: HO.HGI 09:27
PROVIDERS: PCP Nurse Practitioner Family; Visit Provider Internal Medicine Gastroenterology
DX: K21.9 Gastro-esophageal reflux disease without esophagitis (principal); R79.89 Other specified abnormal findings of blood chemistry; K76.0 Fatty (change of) liver, not elsewhere classified; K76.89 Other specified diseases of liver; Z86.0100 Personal history of colon polyps, unspecified; K64.0 First degree hemorrhoids; K57.90 Diverticulosis of intestine, part unspecified, without perforation or abscess without bleeding
CPT/HCPCS: 99213